=== PATIENT | female | born 1950 | race Caucasian/White ===

== ENCOUNTER → 2016-05-12 | Outpatient (RCR) | payer MEDICARE, OTHER ==
--- OUTSIDE RECORDS SUMMARY | 2016-02-12 08:56 | XMS REPORT | Continuity of Care Document ---
Author Author [facility]– [place][Note 2] Address Unknown Phone Unavailable Support Name Relationship Address Phone , [employer] [address] [address] [place] [address] [phone] Active Allergies and Adverse Reactions Allergen Noted Date Severity Reactions Comments Amoxicillin Trihydrate soreness of tongue AUGMENTIN Nitrofurantoin nausea MACRODANTIN Macrocrystal Potassium Clavulanate soreness of tongue AUGMENTIN Current Medications Prescription Sig. Disp. Refills Start End Date Status Date fluticasone (FLONASE) 50 spray 2 spray (100MCG) 3 3 02/18/20 Active MCG/ACT nasal spray by intranasal route 11 every day in each nostril metformin (GLUCOPHAGE) 1 po qd 90 1 05/05/20 Active 1000 MG tablet 10 fexofenadine (ELANA) take 1 tablet (180MG) by 90 1 05/05/20 Active 180 MG tablet oral route every day 10 triamterene-hydrochloroth One po daily 90 1 11/15/19 Active iazide (MAXZIDE) 75-50 MG 11 sitagliptan-metformin take 1 tablet by oral 60 6 02/27/20 Active (JANUMET) 50-1000 MG per route 2 times every day 11 tablet with meals .Temporary Order (SEE SIG ALBUTEROL: 2 puffs tid 1 5 12/27/19 Active FOR MEDICATION NAME) until improved and q 2 11 hrs prn sob cyclobenzaprine 1 po q 8 hrs prn pain 40 0 10/31/19 Active (FLEXERIL) 10 MG tablet 11 omeprazole (PRILOSEC) 20 take 1 by oral route 2 180 1 05/05/20 Active MG capsule times every day 10 glucose blood (ONE TOUCH Use ac and hs to check 100 2 12/10/19 Active ULTRA TEST) test strip capillary glucose 10 ergocalciferol (DRISDOL) take 1 capsule 15 0 02/18/20 Active 32917 UNITS capsule (11631APPZH) by ORAL 11 route every week for 15 weeks .reconcile (MEDICATION No Sig 1 0 10/29/19 Active LIST IMPORTED) 13 simvastatin (ZOCOR) 40 MG Take 40 mg by mouth Active tablet nightly. clonazePAM (KLONOPIN) 0.5 Take 0.5 mg by mouth 2 Active MG tablet (two) times daily as needed for Anxiety. DULoxetine (CYMBALTA) 30 Take 60 mg by mouth 05/01/20 Active MG capsule daily. 11 Active Problems Problem Noted Date Other and unspecified hyperlipidemia Depressive disorder, not elsewhere classified Type II or unspecified type diabetes mellitus without mention of complication, not stated as uncontrolled Unspecified episodic mood disorder Unspecified essential hypertension Immunizations Name Dates Previously Given Next Due Influenza IIV3 PFree 02/17/2011, 03/12/2010, 03/06/2008, 03/07/2007, 03/11/2006, 03/18/2005 Social History Tobacco Use Types Packs/Day Years Used Date Never Smoker Last Filed Vital Signs Vital Sign Reading Time Taken Blood Pressure 130/74 03/17/2011 3:53 PM YOGA COORDINATOR Pulse - - Temperature - - Respiratory Rate - - Height 1.721 m (5' 7.75") 05/05/2010 9:16 AM YOGA COORDINATOR Weight 115.894 kg (255 lb 8 oz) 03/17/2011 3:53 PM YOGA COORDINATOR Body Mass Index 39.13 03/17/2011 3:53 PM YOGA COORDINATOR Oxygen Saturation - - Plan of Care Health Maintenance Due Date Last Done Comments Tdap Vaccines 07/28/1959 Tetanus Vaccine (Td 07/28/1959 Booster) Ophthalmology Exam 10/03/2007 10/02/2006 Zoster Vaccine 2008 Diabetic Foot Exam 04/04/2009 04/04/2008 Cervical Cancer Screening 05/05/2011 05/05/2010 Annual Wellness Visit 2013 Pneumo-Adult (1 of 2 - 2013 PCV13) Influenza Vaccine (#1) 2016 02/17/2011, 03/12/2010, 03/06/2008 Additional history exists Breast Cancer 11/28/2016 11/28/2014, 11/27/2013, 10/27/2012 Additional history exists Screening-Mammogram Colon Cancer 10/11/2018 10/11/2008 Screening-Colonoscopy Hepatitis C Screening Completed 01/18/2009 Results from Last 3 Months Not on file
== END | disposition home or self-care (01) ==
DX: M24.521 Contracture, right elbow (principal); S42.491D Other displaced fracture of lower end of right humerus, subsequent encounter for fracture with routine healing

== ENCOUNTER 2016-06-04 13:05 | Outpatient (RCR) | payer MEDICARE, OTHER ==
--- OUTSIDE RECORDS SUMMARY | 2016-05-14 13:53 | XMS REPORT | Continuity of Care Document ---
Author Author [facility] Organization [facility] Address Unknown Phone Unavailable Care Team Providers Care Bowling Ball Assembler Name Role Phone PRISCA WINTER MD PCP Insurance Providers Payer Name Policy Number Subscriber Name Relationship [employer] [id number] Timmy Santana 18 Self / Same As Patient Enter Insurance Name [id number] Timmy Santana Facundo 18 Self / Same As Patient Problems No problem information available. Medications No medication information available. Social History Social History Problem Response Recorded Date/Time Recent Foreign Travel No 09/05/2015 9:16am Hospital Discharge Instructions No hospital discharge instructions. Plan of Care Prescriptions See Medication Section Functional Status No functional status results. Allergies, Adverse Reactions, Alerts No allergy information available. Immunizations No immunization records. Vital Signs No known vital signs results. Results No known relevant diagnostic tests, laboratory data and/or discharge summary. Procedures No known history of procedures. Encounters Encounter Location Arrival/Admit Date Discharge/Depart Date Attending Provider Discharged Recurring [facility] 09/25/15 10:43am 11:34am PRISCA WINTER MD Registered Clinic [facility] 09/05/15 2:25pm PRISCA WINTER MD
== END 2016-07-01 12:01 | disposition home or self-care (01) ==
PROVIDERS: ATTEND Physician Assistant
DX: M24.521 Contracture, right elbow (principal); S42.491D Other displaced fracture of lower end of right humerus, subsequent encounter for fracture with routine healing

== ENCOUNTER → 2016-06-10 | Outpatient (CLI) | payer MEDICARE, OTHER ==
--- OUTSIDE RECORDS SUMMARY | 2016-06-10 10:00 | XMS REPORT | Continuity of Care Document ---
Author Author [facility] Organization [facility] Address Unknown Phone Unavailable Care Team Providers Care High Pressure Boiler Operator Name Role Phone PRISCA WINTER MD PCP Insurance Providers Payer Name Policy Number Subscriber Name Relationship [employer] [id number] Timmy Santana 18 Self / Same As Patient Enter Insurance Name [id number] Timmy Santana Facundo 16 Self / Same [...] Discharge/Depart Date Attending Provider Discharged Recurring [facility] 09/25/15 10:43am 11:34am PRISCA WINTER MD Registered Clinic [facility] 09/05/15 2:25pm PRISCA WINTER MD
== END ==
LOC: RT 09:57
PROVIDERS: ATTEND Family Medicine
DX: J45.30 Mild persistent asthma, uncomplicated (principal)
CPT/HCPCS: 94060; 94726; 94729

== ENCOUNTER → 2016-07-07 | Outpatient (CLI) | payer MEDICARE, OTHER ==
--- OUTSIDE RECORDS SUMMARY | 2016-07-07 11:02 | XMS REPORT | Continuity of Care Document ---
Author Author [facility] Organization [facility] Address Unknown Phone Unavailable Care Team Providers Care Trademark Paralegal Name Role Phone PRISCA WINTER MD PCP Insurance Providers Payer Name Policy Number Subscriber Name Relationship [employer] [id number] Timmy Santana 18 Self / Same As Patient Enter Insurance Name [id number] Timmy Santana Facundo 18 Self / Same [...] Discharge/Depart Date Attending Provider Discharged Recurring [facility] 09/25/15 10:43am 11:34am PRISCA WINTER MD Registered Clinic [facility] 09/05/15 2:25pm PRISCA WINTER MD
--- NOTE | 2016-07-14 19:59 | Diagnostic Imaging Report ---
Digital mammogram bilateral screening This study was compared the prior exams of 11/28/14 and 11/27/13. At this time, there are no current complaints. The current study was also evaluated with a Computer Aided Detection (CAD) system. FINDINGS: There is a mild amount of fibroglandular tissue present in both breasts, similar to the prior exam. No primary or secondary sign of malignancy is noted. IMPRESSION: There is no radiographic evidence for malignancy. ACR BI-RADS Category 1: Negative. Result letter will be mailed to the patient. Note: At least 10% of breast cancer is not imaged by mammography. Dictated by: Dictated on workstation # [id number]
== END ==
LOC: RAD 11:00
PROVIDERS: ATTEND Family Medicine
DX: Z12.31 Encounter for screening mammogram for malignant neoplasm of breast (principal)
CPT/HCPCS: 77067

== ENCOUNTER → 2016-07-09 | Outpatient (CLI) | payer MEDICARE, OTHER ==
--- OUTSIDE RECORDS SUMMARY | 2016-07-09 15:04 | XMS REPORT | Continuity of Care Document ---
Author Author [facility] Organization [facility] Address Unknown Phone Unavailable Care Team Providers Care Expeller Worker Name Role Phone PRISCA WINTER MD PCP Insurance Providers Payer Name Policy Number Subscriber Name Relationship [employer] [id number] Timym Santana 18 Self / Same As Patient Enter Insurance Name [id number] Timmy Santana Facundo 18 Self / Same [...] Discharge/Depart Date Attending Provider Discharged Recurring [facility] 09/25/15 10:43am 11:34am PRISCA WINTER MD Registered Clinic [facility] 09/05/15 2:25pm PRISCA WINTER MD
--- NOTE | 2016-07-09 19:31 | Diagnostic Imaging Report ---
PA and lateral chest at 327 hours. INDICATION: Followup exam. FINDINGS: Heart size is within normal limits and stable when compared to the CT chest exam of 09/05/15. The lungs are clear. There is no sign of failure, pneumonia or pleural effusion to suggest an acute abnormality. The mediastinum is not widened. The surgical clips about the proximal trachea seen on the previous study are again evident and no different. The osseous structures are intact. IMPRESSION: There is no evidence for an acute cardiopulmonary abnormality. Dictated by: Dictated on workstation # [id number]
== END ==
LOC: RAD 15:01
PROVIDERS: ATTEND Internal Medicine Critical Care Medicine
DX: J45.909 Unspecified asthma, uncomplicated (principal); D86.9 Sarcoidosis, unspecified
CPT/HCPCS: 71020

== ENCOUNTER → 2016-07-11 | Outpatient (CLI) | payer MEDICARE, OTHER ==
--- OUTSIDE RECORDS SUMMARY | 2016-07-11 15:35 | XMS REPORT | Continuity of Care Document ---
Author Author [facility] Organization [facility] Address Unknown Phone Unavailable Care Team Providers Care Air Route Traffic Controller Name Role Phone PRISCA WINTER MD PCP Insurance Providers Payer Name Policy Number Subscriber Name Relationship [employer] [id number] Timmy Santana 18 Self / Same As Patient Enter Insurance Name [id number] Timmy Santana Facundo 16 Self / Same [...] Discharge/Depart Date Attending Provider Discharged Recurring [facility] 09/25/15 10:43am 11:34am PRISCA WINTER MD Registered Clinic [facility] 09/05/15 2:25pm PRISCA WINTER MD
--- NOTE | 2016-07-11 17:24 | Diagnostic Imaging Report ---
EXAMINATION: Magnetic resonance imaging of the left knee without intravenous contrast DATE: 07/11/2016. COMPARISON: None. INDICATION: 65-year-old female, left knee pain. TECHNIQUE: Multiplanar, multisequence non contrast enhanced MR imaging was accomplished. FINDINGS: MENISCI: There is a small oblique tear involving the free edge of the body of the medial meniscus. There is mild blunting of the free edge of the body of lateral meniscus which also may relate to a small free edge tear. LIGAMENTS AND TENDONS: The posterior cruciate ligament appears diminutive in caliber but intact. The anterior cruciate ligament not entirely well seen and may be very small in caliber or torn potentially on a chronic basis. The medial collateral ligament is intact. The iliotibial band, mid third lateral capsular ligament, fibular collateral ligament, biceps femoris tendon and conjoined tendon are intact. The quadriceps tendon and patella ligament are intact. JOINT: There are broad areas of full-thickness and near full-thickness patellar and trochlear cartilage loss. There are broad areas of approximately 50% cartilage loss in the medial compartment. There is no large knee joint effusion. There is an ossified intra-articular body best demonstrated on axial T2 fat saturation sequence image #5 measuring 6 x 6 x 5 mm in size. BONE: There is prominent edema in the mid to posterior weightbearing portion of the medial femoral condyle without a clearly visualized fracture line. This is concerning for stress-related changes and could herald an impending fracture. There is edema-like signal in the medial tibial plateau which is less prominent. This potentially could be stress-related as well although may also potentially relate to degenerative-related marrow edema. These areas of edema are not directly adjacent to each other. The other consideration would include bone contusions if there has been a recent injury. BURSAE AND SOFT TISSUES: There is no sizable Quiñones's cyst. IMPRESSION: 1. Small oblique free edge tear of the body of the medial meniscus. 2. Blunting of the free edge of the body of the lateral meniscus which may also relate to a small free edge tear. 3. There is very prominent marrow edema in the mid to posterior aspect of the weightbearing portion of the medial femoral condyle without immediately subjacent edema in the medial tibial plateau. This is concerning for stress-related changes and could herald a pending fracture. Primary differential consideration would be a bone contusion. There is also edema in the anterior aspect of the medial tibial plateau which also could relate to bone contusion or potential stress-related marrow changes. 4. Diminutive caliber anterior cruciate ligament which may be just small in caliber versus torn on a chronic basis. Intact posterior cruciate ligament. Dictated by: Dictated on workstation # [id number]
== END ==
LOC: RAD 15:32
PROVIDERS: ATTEND Orthopaedic Surgery
DX: M94.262 Chondromalacia, left knee (principal)
CPT/HCPCS: 73721

== ENCOUNTER → 2016-11-04 | Outpatient (CLI) | payer MEDICARE, OTHER ==
--- NOTE | 2016-11-04 16:50 | Diagnostic Imaging Report ---
Renal ultrasound. INDICATION: Chronic renal disease. FINDINGS: The right kidney is 8.9 cm and the left kidney is 8.9 cm in length. There is no hydronephrosis or focal lesion. The urinary bladder is not seen because it is empty. IMPRESSION: [id number] renal atrophy. No hydronephrosis. Dictated by: Dictated on workstation # [id number]
== END ==
LOC: RAD 12:03
PROVIDERS: ATTEND Family Medicine
DX: N26.1 Atrophy of kidney (terminal) (principal); N18.3 Chronic kidney disease, stage 3 (moderate)
CPT/HCPCS: 76770

== ENCOUNTER 2016-11-05 13:00 | Outpatient (RCR) | payer MEDICARE, OTHER | END 2016-11-08 | disposition home or self-care (01) | LOC: PULM 13:00 | PROVIDERS: ATTEND Internal Medicine Critical Care Medicine | DX: D86.9 Sarcoidosis, unspecified (principal); J45.909 Unspecified asthma, uncomplicated | CPT/HCPCS: 99211 ==

== ENCOUNTER 2016-11-12 13:29 | Outpatient (RCR) | payer MEDICARE, OTHER ==
[2016-12-14] MEDS ORDERED: TRIA1CAP4 PO (10:15)
[2016-12-14] MEDS ORDERED: SITA1TAB6 PO (10:15)
[2016-12-14] MEDS ORDERED: SIMV10TA PO (10:15)
[2016-12-14] MEDS ORDERED: CHOL100045 PO (10:15)
[2016-12-14] MEDS ORDERED: SERT50TA2 PO (10:15)
[2016-12-14] MEDS ORDERED: BUDE10.2 IH (10:15)
[2016-12-14] MEDS ORDERED: FEXO180T84 PO (10:15)
[2016-12-14] MEDS ORDERED: METF1000 PO (10:15)
[2016-12-14] MEDS ORDERED: DULO60CA6 PO (10:15)
== END 2017-02-06 | disposition home or self-care (01) ==
LOC: PULM 13:29
PROVIDERS: ATTEND Internal Medicine Critical Care Medicine
DX: D86.9 Sarcoidosis, unspecified; J45.909 Unspecified asthma, uncomplicated

== ENCOUNTER 2016-12-14 05:40 | Outpatient (CLI) | payer MEDICARE, OTHER ==
[~2016-12-14] VITALS: Ht 172.7 cm; Wt 90.7 kg
[2016-12-14] MEDS ORDERED: BUDE10.2 IH (10:15)
[2016-12-14] MEDS ORDERED: DULO60CA6 PO (10:15)
[2016-12-14] MEDS ORDERED: CHOL100045 PO (10:15)
[2016-12-14] MEDS ORDERED: FEXO180T84 PO (10:15)
[2016-12-14] MEDS ORDERED: SERT50TA2 PO (10:15)
[2016-12-14] MEDS ORDERED: SITA1TAB6 PO (10:15)
[2016-12-14] MEDS ORDERED: SIMV10TA PO (10:15)
[2016-12-14] MEDS ORDERED: TRIA1CAP4 PO (10:15)
[2016-12-14] MEDS ORDERED: METF1000 PO (10:15)
== END 2016-12-14 10:27 ==
LOC: PREOP 05:40
PROVIDERS: ATTEND Surgery
DX: Z01.818 Encounter for other preprocedural examination (principal); K59.09 Other constipation; Z86.010 Personal history of colon polyps; N28.9 Disorder of kidney and ureter, unspecified

== ENCOUNTER → 2016-12-23 | Outpatient (CLI) | payer MEDICARE, OTHER ==
[~2016-12-23] MED LIST: BUDE10.2 IH; CHOL100045 PO; DULO60CA6 PO; FEXO180T84 PO; METF1000 PO; SERT50TA2 PO; SIMV10TA PO; SITA1TAB6 PO; TRIA1CAP4 PO
== END ==
LOC: PREOP 05:34
PROVIDERS: ATTEND Surgery
DX: Z01.818 Encounter for other preprocedural examination (principal); D64.9 Anemia, unspecified; K59.00 Constipation, unspecified; Z86.010 Personal history of colon polyps

== ENCOUNTER → 2016-12-29 | Day surgery (SDC) | payer MEDICARE, OTHER ==
[~2016-12-29] VITALS: Ht 172.7 cm; Wt 90.7 kg
[~2016-12-29] MED LIST changes: +LACTATED RINGERS 1,000 ML IV ONE; +LACTATED RINGERS 1,000 ML IV SCH; +MIDAZOLAM 2 MG/2 ML (VERSED) VIAL ONE; +PROPOFOL INJECTION 50 ML IV ONE; +ceFAZolin 2 GM/50 ML NS 50 ML IV ONE; +ceFAZolin 2 GM/50 ML NS 50 ML ONE
[2016-12-29 09:20] VITALS: BP 150/114
--- NOTE | 2016-12-29 10:58 | Progress Note-Post Operative ---
Post-Operative Progess Note Surgeon (s)/Pile Operator (s) Surgeon NEERU CABAN DO Pile Operator: na Pre-Operative Diagnosis constipation, family hx colon cancer, hx polyps Post-Operative Diagnosis normal colon Procedure & Operative Findings Date of Procedure 12/29/16 Procedure Performed/Findings colonoscopy Anesthesia Type per non profit job titles Estimated Blood Loss Estimated blood loss (mL): none Specimens/Packing Specimens Removed na NEERU CAABN DO Dec 29, 2016 10:58 am
--- NOTE | 2016-12-29 11:01 | Discharge Inst-Simple/Standard ---
Discharge Inst-Standard Patient Instructions/Follow Up Plan of Care/Instructions/FU: repeat colonoscopy 5 years, if any problems before that be re-evaluated. Activity as Tolerated: Yes Discharge Diet: Regular Diet (high fiber) NEERU CABAN DO Dec 29, 2016 11:01 am
[2016-12-29 11:15] VITALS: BP 142/70
[2016-12-29 11:45] VITALS: BP 150/80
[2016-12-29 11:55] VITALS: BP 150/80
--- OUTSIDE RECORDS SUMMARY | 2016-12-29 12:11 | XMS REPORT ---
Author Author YAIMA NEVILLE Organization [employer] Address Unknown Phone Unavailable Care Team Providers Care Service Representative Name Role Phone YAIMA NEVILLE CP Unavailable Allergies No Known Allergies Problems Problem Type Condition Code Onset Dates Condition Status Problem Unilateral femoral hernia, without obstruction or gangrene, not specified as recurrent K41.90 Active Problem Generalized anxiety disorder F41.1 Active Problem Left foot drop M21.372 Active Assessment Generalized anxiety disorder F41.1 Active Assessment Episode of recurrent major depressive disorder, unspecified depression episode severity F33.9 Active Problem Comminuted right humeral fracture S42.351A Active Problem 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 Problem Frequent falls R29.6 Active Problem Hyperlipidemia associated with type 2 diabetes mellitus E11.69 Active Problem Major depressive disorder, recurrent, in partial remission F33.41 Active Problem Type 2 diabetes mellitus with hyperglycemia E11.65 Active Problem Essential hypertension I10 Active Medications No Known Medications Procedures Procedure Coding System Code Date Psychotherapy, patient &/family, 30 minutes, established patient CPT-4 91016 August 28, 2015 [facility] VISIT MENTAL HEALTH ESTAB PT CPT-4 G0470 August 28, 2015 Results No Known Results Summary Purpose [employer] Submission
--- OUTSIDE RECORDS SUMMARY | 2016-12-29 12:11 | XMS REPORT ---
Author Author YAIMA NEVILLE Organization [employer] Address Unknown Phone Unavailable Care Team Providers Care Perinatal Instructor Name Role Phone YAIMA NEVILLE CP Unavailable Allergies No Known Allergies Problems Problem Type Condition Code Onset Dates Condition Status Assessment Major depressive disorder, recurrent, in partial remission F33.41 Active Problem Left foot drop M21.372 Active Problem Unilateral femoral hernia, without obstruction or gangrene, not specified as recurrent K41.90 Active Assessment Generalized anxiety disorder F41.1 Active Problem 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 Problem Type 2 diabetes mellitus with hyperglycemia E11.65 Active Problem Comminuted right humeral fracture S42.351A Active Problem Major depressive disorder, recurrent, in partial remission F33.41 Active Problem Generalized anxiety disorder F41.1 Active Problem Essential hypertension I10 Active Problem Hyperlipidemia associated with type 2 diabetes mellitus E11.69 Active Medications No Known Medications Procedures Procedure Coding System Code Date Psychotherapy, patient &/family, 45 minutes, established patient CPT-4 68500 August 21, 2015 [facility] VISIT MENTAL HEALTH ESTAB PT CPT-4 G0470 August 21, 2015 Results No Known Results Summary Purpose [employer] Submission
--- OUTSIDE RECORDS SUMMARY | 2016-12-29 12:11 | XMS REPORT ---
Author Author PRISCA WINTER Organization [facility] Address [address] [place] [address] Care Team Providers Care Still Operator Brandy Name Role Phone PRISCA WINTER Unavailable PROBLEMS Type Condition ICD9-CM Code RXF37-ES Code Onset Dates Condition Status SNOMED Code Problem Left foot drop M21.372 Active 0483929 Problem Major depressive disorder, recurrent, in partial remission F33.41 Active 131428094 Problem Generalized anxiety disorder F41.1 Active 382432277 Assessment Pre-op exam Z01.818 Jan, Active 711821387 Problem Unilateral femoral hernia, without obstruction or gangrene, not specified as recurrent K41.90 Active 76256832 Problem Frequent falls R29.6 Active 562436698 Problem Comminuted right humeral fracture S42.351A Active 42121288 Problem Essential hypertension I10 Active 77507103 Problem Hyperlipidemia associated with type 2 diabetes mellitus E11.69 Active 832912542360 Problem 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 484570714 Problem Type 2 diabetes mellitus with hyperglycemia E11.65 Active 81733234 ALLERGIES Unknown Allergies SOCIAL HISTORY No smoking Hx information available PLAN OF CARE VITAL SIGNS MEDICATIONS Medication Instructions Dosage Frequency Start Date End Date Duration Status Amoxicillin 500 MG Orally every 12 hrs 1 tablet 12h Jan, Jan, 03 days Active RESULTS No Results PROCEDURES No Known procedures IMMUNIZATIONS No Known Immunizations
--- OUTSIDE RECORDS SUMMARY | 2016-12-29 12:11 | XMS REPORT ---
Author Author PRISCA WINTER [facility] Address [address] [place] [address] Care Team Providers Care Manager Apple Name Role Phone PRISCA WINTER Unavailable PROBLEMS Type Condition ICD9-CM Code FRT12-RG Code Onset Dates Condition Status SNOMED Code Problem Left foot drop M21.372 Active 4732231 Problem Major depressive disorder, recurrent, in partial remission F33.41 Active 014795299 Problem Generalized anxiety disorder F41.1 Active 032768185 Problem Unilateral femoral hernia, without obstruction or gangrene, not specified as recurrent K41.90 Active 40968000 Problem Frequent falls R29.6 Active 081732155 Problem Comminuted right humeral fracture S42.351A Active 67715409 Problem Essential hypertension I10 Active 50459101 Problem Hyperlipidemia associated with type 2 diabetes mellitus E11.69 Active 370042756578 Problem 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 455794110 Problem Type 2 diabetes mellitus with hyperglycemia E11.65 Active 28369793 ALLERGIES Unknown Allergies SOCIAL HISTORY No smoking Hx information available PLAN OF CARE VITAL SIGNS MEDICATIONS Unknown Medications RESULTS No Results PROCEDURES No Known procedures IMMUNIZATIONS No Known Immunizations
--- OUTSIDE RECORDS SUMMARY | 2016-12-29 12:11 | XMS REPORT ---
Author Author BOWEN TOLEDO Organization [employer] Address Unknown Phone Unavailable Care Team Providers Care Quencher Operator Name Role Phone BOWEN TOLEDO CP Unavailable Allergies No Known Allergies Problems Problem Type Condition ICD-9 Code Onset Dates Condition Status Problem Insomnia 780.52 Active Problem Hyperlipidemia, mixed 272.2 Active Problem Depression with anxiety 300.4 Active Problem Cystocele w/o mention of uterine prolapse 618.00 Active Problem Chest pressure 786.59 Active Problem CONSTIPATION NOS 564.00 Active Problem HTN [Hypertension] 401.9 Active Problem Diabetes Mellitus type 2, controlled 250.00 Active Problem Cough 786.2 Active Problem Tachycardia 785.0 Active Medications Medication Code System Code Instructions Start Date End Date Status Dosage Vitamin D [facility] 6150 50,000 intl units orally once weekly November 12, 2014 1 cap(s) Results No Known Results Summary Purpose [employer] Submission
--- OUTSIDE RECORDS SUMMARY | 2016-12-29 12:11 | XMS REPORT ---
Author Author PRISCA WINTER [facility] Address [address] [place] [address] Care Team Providers Care Children'S Counselor Name Role Phone PRISCA WINTER Unavailable PROBLEMS Type Condition ICD9-CM Code KFN71-UZ Code Onset Dates Condition Status SNOMED Code Problem Left foot drop M21.372 Active 6830727 Problem Major depressive disorder, recurrent, in partial remission F33.41 Active 202700126 Problem Generalized anxiety disorder F41.1 Active 554232279 Problem Unilateral femoral hernia, without obstruction or gangrene, not specified as recurrent K41.90 Active 42496370 Problem Frequent falls R29.6 Active 045547993 Problem Comminuted right humeral fracture S42.351A Active 79107025 Problem Essential hypertension I10 Active 04272147 Problem Hyperlipidemia associated with type 2 diabetes mellitus E11.69 Active 020029566879 Problem 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 221570438 Problem Type 2 diabetes mellitus with hyperglycemia E11.65 Active 29854814 ALLERGIES Unknown Allergies SOCIAL HISTORY No smoking Hx information available PLAN OF CARE VITAL SIGNS MEDICATIONS Unknown Medications RESULTS No Results PROCEDURES No Known procedures IMMUNIZATIONS No Known Immunizations
--- OUTSIDE RECORDS SUMMARY | 2016-12-29 12:11 | XMS REPORT ---
Author Author PRISCA WINTER Organization [facility] Address [address] [place] [address] Care Team Providers Care Spectroscopist Name Role Phone PRISCA WINTER Unavailable PROBLEMS Type Condition ICD9-CM Code [id number] Code Onset Dates Condition Status SNOMED Code Problem Comminuted right humeral fracture S42.351A Active 42557742 Problem Gastroesophageal reflux disease without esophagitis K21.9 Active 425678807 Problem Frequent falls R29.6 Active 746663379 Problem Stage 3 chronic kidney disease N18.3 Active 547735729 Problem Stress incontinence N39.3 Active 60801923 Problem Vitamin D deficiency E55.9 Active 03593934 Problem Mild persistent asthma without complication J45.30 Active 624905700 Problem Urge incontinence N39.41 Active 88027554 Problem History of sarcoidosis Z86.2 Active 056804908 Problem Unilateral femoral hernia, without obstruction or gangrene, not specified as recurrent K41.90 Active 78075586 Problem Left foot drop M21.372 Active 8546675 Problem Hyperlipidemia associated with type 2 diabetes mellitus E11.69 Active 984491727939 Problem Essential hypertension I10 Active 70793272 Problem Generalized anxiety disorder F41.1 Active 784854650 Problem Type 2 diabetes mellitus with hyperglycemia E11.65 Active 78706729 Problem Major depressive disorder, recurrent, in partial remission F33.41 Active 184694614 Problem 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 383470813 ALLERGIES Substance Reaction Event Type Date Status N.K.D.A. Unknown Non Drug Allergy Apr, Unknown SOCIAL HISTORY No smoking Hx information available PLAN OF CARE Activity Details Follow Up 4 Weeks Reason:Chronic cough VITAL SIGNS Height 5'8" in 2016-04-23 Weight 218.1 lbs 2016-04-23 Temperature 98.4 degrees Fahrenheit 2016-04-23 Heart Rate 82 bpm 2016-04-23 Respiratory Rate 18 2016-04-23 Oximetry 98 % 2016-04-23 BMI 33.16 kg/m2 2016-04-23 Blood pressure systolic 124 mmHg 2016-04-23 Blood pressure diastolic 82 mmHg 2016-04-23 MEDICATIONS Medication Instructions Dosage Frequency Start Date End Date Duration Status Cholecalciferol 41855 UNIT Orally once weekly 1 capsule Apr, Apr, 12 Weeks Active Advair Diskus 100-50 MCG/DOSE Inhalation Twice a day prn 1 puff Active Cymbalta 60 MG Orally Once a day 1 capsule 24h 90 days Active Jasmin Allergy 180 MG Orally Once a day 1 tablet as needed 24h 30 days Active MiraLax 17 gm/dose Orally Once a day 17 grams mixed in 8 oz of water or juice 24h Active Janumet 50-1000 MG Orally Once a day 1 tablet with meals 24h 90 days Active Zoloft 50 MG Orally Once a day 1 tablet 24h 90 days Active Triamterene-HCTZ 37.5-25 MG Orally Once a day 1 tablet in the morning 24h 90 days Active Metformin HCl 1000 MG Orally Once a day in the morning 1 tablet with meals Dec, 90 days Active Zocor 10 MG Orally Once a day 1 tablet in the evening 24h Active Prilosec OTC 20 mg Orally Once a day 1 tablet 24h Mar, 30 day(s ) Active RESULTS Name Result Date Reference Range A1C (IN HOUSE) 2016-04-23 A1C IN HOUSE 7.8 4.3 - 5.6 % Previous A1c 7.9 Lot [id number] Exp date PROCEDURES Procedure Date Ordered Related Diagnosis Body Site MEASURE BLOOD OXYGEN LEVEL Apr 23, 2016 GLYCATED HEMOGLOBIN TEST Apr 23, 2016 Office Visit, Est Pt., Level 3 Apr 23, 2016 [facility] VISIT ESTABLISHED PATIENT Apr 23, 2016 IMMUNIZATIONS No Known Immunizations
--- OUTSIDE RECORDS SUMMARY | 2016-12-29 12:12 | XMS REPORT ---
Author Author PRISCA WINTER Organization [facility] Address [address] [place] [address] Care Team Providers Care Marketing Clerk Name Role Phone PRISCA WINTER Unavailable PROBLEMS Type Condition ICD9-CM Code [id number] Code Onset Dates Condition Status SNOMED Code Problem Left foot drop M21.372 Active 8336688 Problem Major depressive disorder, recurrent, in partial remission F33.41 Active 281020316 Problem Generalized anxiety disorder F41.1 Active 127100231 Assessment Frequency of micturition R35.0 13 Jan, 2016 Active 054179101 Problem Unilateral femoral hernia, without obstruction or gangrene, not specified as recurrent K41.90 Active 44449154 Problem Frequent falls R29.6 Active 620321738 Problem Comminuted right humeral fracture S42.351A Active 15901447 Problem Essential hypertension I10 Active 00553079 Problem Hyperlipidemia associated with type 2 diabetes mellitus E11.69 Active 227927491518 Problem 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 310353801 Problem Type 2 diabetes mellitus with hyperglycemia E11.65 Active 80910076 ALLERGIES Unknown Allergies SOCIAL HISTORY No smoking Hx information available PLAN OF CARE VITAL SIGNS MEDICATIONS Unknown Medications RESULTS No Results PROCEDURES No Known procedures IMMUNIZATIONS No Known Immunizations
--- OUTSIDE RECORDS SUMMARY | 2016-12-29 12:12 | XMS REPORT ---
Author Author PRISCA WINTER eClinicalWorks Address Unknown Phone Unavailable Care Team Providers Care Gas Welder Apprentice Name Role Phone PRISCA WINTER Unavailable Allergies No Known Allergies Problems Problem Type Condition Code Onset Dates Condition Status Assessment Type 2 diabetes mellitus with hyperglycemia E11.65 Active Problem Left foot drop M21.372 Active Problem Unilateral femoral hernia, without obstruction or gangrene, not specified as recurrent K41.90 Active Problem 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 Problem Type 2 diabetes mellitus with hyperglycemia E11.65 Active Problem Comminuted right humeral fracture S42.351A Active Problem Major depressive disorder, recurrent, in partial remission F33.41 Active Problem Generalized anxiety disorder F41.1 Active Problem Essential hypertension I10 Active Problem Hyperlipidemia associated with type 2 diabetes mellitus E11.69 Active Medications Medication Code System Code Instructions Start Date End Date Status Dosage Lisinopril [facility] [place] [address]-83 10 mg Orally Once a day August 26, 2015 1 tablet Results No Known Results Summary Purpose eClinicalWorks Submission
--- OUTSIDE RECORDS SUMMARY | 2016-12-29 12:12 | XMS REPORT ---
Author Author BOWEN TOLEDO Organization [employer] Address Unknown Phone Unavailable Care Team Providers Care Drill Bit Sharpener Name Role Phone BOWEN TOLEDO CP Unavailable Allergies No Known Allergies Problems Problem Type Condition ICD-9 Code Onset Dates Condition Status Problem Insomnia 780.52 Active Assessment Chest pressure 786.59 Active Problem Cough 786.2 Active Problem Tachycardia 785.0 Active Problem Chest pressure 786.59 Active Problem Hyperlipidemia, mixed 272.2 Active Problem Depression with anxiety 300.4 Active Problem HTN [Hypertension] 401.9 Active Problem Diabetes Mellitus type 2, controlled 250.00 Active Medications Medication Code System Code Instructions Start Date End Date Status Dosage Zocor NDC 1546 40mg orally once daily at July 14, 2014 1 tab(s) Results No Known Results Summary Purpose eClinicalWorks Submission
--- OUTSIDE RECORDS SUMMARY | 2016-12-29 12:12 | XMS REPORT ---
Author Author PRISCA WINTER eClinical[employer] Address Unknown Phone Unavailable Care Team Providers Care Application Tester Name Role Phone PRISCA WINTER CP Unavailable Allergies No Known Allergies Problems Problem Type Condition Code Onset Dates Condition Status Problem Unilateral femoral hernia, without obstruction or gangrene, not specified as recurrent K41.90 Active Problem Generalized anxiety disorder F41.1 Active Problem Left foot drop M21.372 Active Problem Comminuted right humeral fracture S42.351A Active Problem 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 Problem Frequent falls R29.6 Active Problem Hyperlipidemia associated with type 2 diabetes mellitus E11.69 Active Problem Major depressive disorder, recurrent, in partial remission F33.41 Active Problem Type 2 diabetes mellitus with hyperglycemia E11.65 Active Problem Essential hypertension I10 Active Medications Medication Code System Code Instructions Start Date End Date Status Dosage Tramadol HCl [facility] [address]-11 50 mg Orally every 6 hrs August 30, 2015 1 tablet as needed Results No Known Results Summary Purpose eClinicalWorks Submission
--- OUTSIDE RECORDS SUMMARY | 2016-12-29 12:12 | XMS REPORT ---
Author Author PRISCA WINTER eClinical[employer] Address Unknown Phone Unavailable Care Team Providers Care Program Paraprofessional Name Role Phone PRISCA WINTER CP Unavailable Allergies, Adverse Reactions, Alerts Substance Reaction Event Type N.K.D.A. Info Not Available Non Drug Allergy Problems Problem Type Condition Code Onset Dates Condition Status Assessment Comminuted right humeral fracture S42.351A Active Problem Unilateral femoral hernia, without obstruction or gangrene, not specified as recurrent K41.90 Active Assessment Type 2 diabetes mellitus with hyperglycemia E11.65 Active Assessment Fatigue, unspecified type R53.83 Active Problem Type 2 diabetes mellitus with hyperglycemia E11.65 Active Problem Essential hypertension I10 Active Problem 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 Problem Generalized anxiety disorder F41.1 Active Problem Left foot drop M21.372 Active Problem Hyperlipidemia associated with type 2 diabetes mellitus E11.69 Active Problem Major depressive disorder, recurrent, in partial remission F33.41 Active Medications Medication Code System Code Instructions Start Date End Date Status Dosage Percocet [facility] [place] [address]-58 7.5-325 MG Orally every 4 hrs Apr 09, 2015 1-2 tablet as needed MiraLax [facility] [place] [address]-94 17 gm/dose Orally Once a day 17 grams mixed in 8 oz of water or juice Zoloft [facility] [place] [address]-17 50 MG Orally Once a day 1 tablet Janumet [facility] [place] [address]-07 50-1000 MG Orally Twice a day 1 tablet with meals Albuterol Sulfate [facility] [place] [address]-78 (2.5 MG/3ML) 0.083% Inhalation every 4 hrs as needed for wheezing/cough 3 ml Jasmin Allergy [facility] [place] [address] 180 MG Orally Once a day as needed 1 tablet Cymbalta [facility] [place] [address]-67 60 MG Orally Once a day 1 capsule Vitamin D (Ergocalciferol) [facility] [place] [address]-50 76[address] UNIT Orally once a week 1 capsule Zocor [facility] [place] [address]-65 10 MG Orally Once a day 1 tablet in the evening Advair Diskus [facility] [place] [address]-84 100-50 MCG/DOSE Inhalation Twice a day prn 1 puff Triamterene-HCTZ [facility] [place] [address]-88 37.5-25 MG Orally Once a day 1 tablet in the morning Procedures Procedure Coding System Code Date LAB NOT BILLED BY [facility] CPT-4 NOBLL May 16, 2015 [facility] VISIT ESTABLISHED PATIENT CPT-4 G0467 May 16, 2015 GLYCATED HEMOGLOBIN TEST CPT-4 60402 May 16, 2015 VENIPUNCT, ROUTINE* CPT-4 78678 May 16, 2015 Office Visit, Est Pt., Level 3 CPT-4 78539 May 16, 2015 Vital Signs Date/Time: May 16, 2015 Temperature 98.6 F Weight 220.5 lbs Height 5'8" in BMI 33.52 Index Blood Pressure Diastolic 78 mmHg Blood Pressure Systolic 126 mmHg Cardiac Monitoring Heart Rate 92 bpm Results Name Result Date Reference Range Unit Abnormality Flag A1C (IN HOUSE) ----A1C IN HOUSE 6.2 20150516 4.30 - 5.6 % ----Previous A1c 7.1 [id number] ----Lot # [id number] ----Exp date [id number] ROUTINE VENIPUNCTURE Summary Purpose eClinicalWorks Submission
--- OUTSIDE RECORDS SUMMARY | 2016-12-29 12:12 | XMS REPORT ---
Author Author PRISCA WINTER eClinicalWorks Address Unknown Phone Unavailable Care Team Providers Care Credit Collections Specialist Name Role Phone PRISCA WINTER CP Unavailable [...] E11.65 Active Problem Essential hypertension I10 Active Assessment Wheezing R06.2 Active Assessment Community acquired pneumonia J18.9 Active Assessment Encounter for immunization Z23 Active Assessment Cough R05 Active Medications Medication Code System Code Instructions Start Date End Date Status Dosage PredniSONE [facility] [address]-26 20 mg Orally 2 times a day Mar 11, 2016 Mar 16, 2016 1 tablet Jasmin Allergy [facility] [address] 180 MG Orally Once a day as needed 1 tablet Aldara [facility] [address]-44 5 % Externally Two times a Week at bedtime Dec 1 application to affected area at bedtime Metformin HCl [facility] [address]-42 1000 MG Orally Once a day in the morning Dec 24, 2015 1 tablet with meals Azithromycin [facility] [address]-18 250 MG Orally Once a day Mar 11, 2016 Mar 16, 2016 2 tablets on the first day, then 1 tablet daily for 4 days Advair Diskus [facility] [address]-38 100-50 MCG/DOSE Inhalation Twice a day prn 1 puff Zocor [facility] [address]-12 10 MG Orally Once a day 1 tablet in the evening Triamterene-HCTZ [facility] [address]-34 37.5-25 MG Orally Once a day 1 tablet in the morning ibuprofen [facility] [address]-45 200 mg oral 2 times a day 2 tablet Fluorouracil [facility] [address]-22 0.5 % Externally Once a day up to 4 weeks ( can stop when superficial erosion occurs) September 11, 2015 1 application to affected area Acetaminophen [facility] [address]-48 500 MG Orally 3 times a day August 08, 2015 2 tablets Janumet [facility] [address]-14 50-1000 MG Orally Once a day 1 tablet with meals Zoloft [facility] [address]-03 50 MG Orally Once a day 1 tablet Albuterol Sulfate [facility] [address]-26 (2.5 MG/3ML) 0.083% Inhalation every 4 hrs as needed for wheezing/cough 3 ml MiraLax [facility] [address]-52 17 gm/dose Orally Once a day 17 grams mixed in 8 oz of water or juice Cymbalta [facility] [address]-53 60 MG Orally Once a day 1 capsule Procedures Procedure Coding System Code Date [facility] VISIT ESTABLISHED PATIENT CPT-4 G0467 Mar 11, 2016 Office Visit, Est Pt., Level 3 CPT-4 09771 Mar 11, 2016 CHEST X-RAY CPT-4 57227 Mar 11, 2016 SINGLE IMMUNIZATION ADMIN CPT-4 33307 Mar 11, 2016 FLUARIX QUAD P-FREE 3 AND UP .50 2015 CPT-4 57162 Mar 11, 2016 Vital Signs Date/Time: Mar 11, 2016 Cardiac Monitoring Heart Rate 80 bpm Weight 220.5 lbs Height 5'8" in BMI 33.52 Index Blood Pressure Diastolic 78 mmHg Blood Pressure Systolic 136 mmHg Results No Known Results Immunizations Vaccine Administration Date FLUARIX QUAD P-FREE 3 AND UP .50 2015Mar 11, 2016 Summary Purpose eClinicalWorks Submission
--- OUTSIDE RECORDS SUMMARY | 2016-12-29 12:12 | XMS REPORT ---
Author Author MOY PRISCA Organization [facility] Address [address] [place] [address] Care Team Providers Care Triage Register Nurse Name Role Phone PRISCA WINTER Unavailable PROBLEMS Type Condition ICD9-CM Code [id number] Code Onset Dates Condition Status SNOMED Code Problem Comminuted right humeral fracture S42.351A Active 12483465 Problem Gastroesophageal reflux disease without esophagitis K21.9 Active 086108415 Problem Frequent falls R29.6 Active 007925184 Problem Stage 3 chronic kidney disease N18.3 Active 387003205 Problem Stress incontinence N39.3 Active 47741003 Problem Vitamin D deficiency E55.9 Active 97126378 Problem Mild persistent asthma without complication J45.30 Active 139439233 Problem Urge incontinence N39.41 Active 19862908 Problem History of sarcoidosis Z86.2 Active 978824373 Problem Unilateral femoral hernia, without obstruction or gangrene, not specified as recurrent K41.90 Active 16421201 Problem Left foot drop M21.372 Active 9278404 Problem Hyperlipidemia associated with type 2 diabetes mellitus E11.69 Active 983850548267 Problem Essential hypertension I10 Active 27978434 Problem Generalized anxiety disorder F41.1 Active 453933529 Problem Type 2 diabetes mellitus with hyperglycemia E11.65 Active 37312216 Problem Major depressive disorder, recurrent, in partial remission F33.41 Active 988085283 Problem 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 106116640 ALLERGIES Unknown Allergies SOCIAL HISTORY No smoking Hx information available PLAN OF CARE VITAL SIGNS MEDICATIONS Unknown Medications RESULTS No Results PROCEDURES Procedure Date Ordered Related Diagnosis Body Site PULMONARY FUNCTION TEST (IN-HOUSE) 2016-05-05 Moderate restrictive defect with no improvement with albuterol SPRIOMETRY CHALLENGE May 05, 2016 NEB/MDI DEMO May 05, 2016 RESPIRATORY FLOW VOLUME LOOP May 05, 2016 SPIROMETRY May 05, 2016 IMMUNIZATIONS No Known Immunizations
--- OUTSIDE RECORDS SUMMARY | 2016-12-29 12:12 | XMS REPORT ---
Author Author YAIMA NEVILLE Organization e[employer] Address Unknown Phone Unavailable Care Team Providers Care Chief Station Engineer Name Role Phone YAIMA NEVILLE CP Unavailable Allergies No Known Allergies Problems Problem Type Condition Code Onset Dates Condition Status Problem Unilateral femoral hernia, without obstruction or gangrene, not specified as recurrent K41.90 Active Problem Generalized anxiety disorder F41.1 Active Problem Left foot drop M21.372 Active Assessment Generalized anxiety disorder F41.1 Active Assessment Major depressive disorder, recurrent episode, mild F33.0 Active Problem Comminuted right humeral fracture S42.351A [...] patient &/family, 30 minutes, established patient CPT-4 62006 November 18, 2015 [facility] VISIT MENTAL HEALTH ESTAB PT CPT-4 G0470 November 18, 2015 Results No Known Results Summary Purpose eClinicalWorks Submission
--- OUTSIDE RECORDS SUMMARY | 2016-12-29 12:12 | XMS REPORT ---
Author Author PRISCA WINTER eClinicalWorks Address Unknown Phone Unavailable Care Team Providers Care Food Product Inspector Name Role Phone PRISCA WINTER Unavailable Allergies [...] Instructions Start Date End Date Status Dosage [facility] [address]-68 2.5-1000 MG Orally Twice a day Jun 11, 2015 1 tablet with meals Results No Known Results Summary Purpose eClinicalWorks Submission
--- OUTSIDE RECORDS SUMMARY | 2016-12-29 12:12 | XMS REPORT ---
Author Author MOY PRISCA Organization [facility] Address [address] [place] [address] Care Team Providers Care Larder Cook Name Role Phone MOYROPRISCA Unavailable PROBLEMS Type Condition ICD9-CM Code [id number] Code Onset Dates Condition Status SNOMED Code Problem Left foot drop M21.372 Active 4267095 Problem Major depressive disorder, recurrent, in partial remission F33.41 Active 399838004 Problem Generalized anxiety disorder F41.1 Active 436977211 Assessment Frequency of micturition R35.0 Jan, Active 987953330 Problem Unilateral femoral hernia, without obstruction or gangrene, not specified as recurrent K41.90 Active 88867568 Problem Frequent falls R29.6 Active 525506752 Problem Comminuted right humeral fracture S42.351A Active 14991740 Problem Essential hypertension I10 Active 88402035 Problem Hyperlipidemia associated with type 2 diabetes mellitus E11.69 Active 708540849043 Problem 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 371607988 Problem Type 2 diabetes mellitus with hyperglycemia E11.65 Active 63838997 ALLERGIES Unknown Allergies SOCIAL HISTORY No smoking Hx information available PLAN OF CARE VITAL SIGNS MEDICATIONS Unknown Medications RESULTS Name Result Date Reference Range UA LONG DIP (IN HOUSE) 2016-01-23 Lot # [id number] Exp date Jan 2017 Clarity clear Color yellow Odor no GLU Negative JAYLYN Negative KET Negative SG 1.020 BLO Negative pH 6.0 Protein Negative URO 0.2 NIT Negative SARIAH TRACE Lot # [id number] Exp date Jan 2016 CULTURE, URINE 2016-01-23 Urine Culture, Routine Final report Result 1 Escherichia coli Antimicrobial Susceptibility PROCEDURES Procedure Date Ordered Related Diagnosis Body Site URINALYSIS, AUTO, W/O SCOPE Jan 23, 2016 LAB NOT BILLED BY [facility] Jan 23, 2016 IMMUNIZATIONS No Known Immunizations
--- OUTSIDE RECORDS SUMMARY | 2016-12-29 12:13 | XMS REPORT ---
Author Author BOWEN TOLEDO [facility] eClinicalWorks Address Unknown Phone Unavailable Care Team Providers Care Lead Rider Name Role Phone BOWEN TOLEDO Unavailable Allergies, Adverse Reactions, Alerts Substance Reaction Event Type N.K.D.A. Info Not Available Non Drug Allergy Problems Problem Type Condition Code Onset Dates Condition Status Problem Insomnia 780.52 Active Problem Hyperlipidemia, mixed 272.2 Active Problem Depression with anxiety 300.4 Active Problem Cystocele w/o mention of uterine prolapse 618.00 Active Problem Chest pressure 786.59 Active Problem CONSTIPATION NOS 564.00 Active Problem HTN [Hypertension] 401.9 Active Problem Diabetes Mellitus type 2, controlled 250.00 Active Problem Cough 786.2 Active Problem Tachycardia 785.0 Active Assessment Cystocele w/o mention of uterine prolapse 618.00 Active Assessment Depression with anxiety 300.4 Active Assessment Hyperlipidemia, mixed 272.2 Active Assessment CONSTIPATION NOS 564.00 Active Assessment Diabetes Mellitus type 2, controlled 250.00 Active Assessment Insomnia 780.52 Active Assessment HTN [Hypertension] 401.9 Active Medications Medication Code System Code Instructions Start Date End Date Status Dosage mayumet NDC 533089 9560/50mg orally 2 times a day 1 tab(s) clonazepam NDC 67457 0.5 mg orally daily at bedtime May 01, 2014 1 tab(s) triamcinolone topical NDC 90509 0.1% applied topically as needed once a day Jun 05, 2014 1 moriah Advair Diskus NDC 16206 100 mcg-50 mcg inhaled 2 times a day Jun 05, 2014 1 puff(s) Jasmin NDC 0 180 mg as directed Cymbalta NDC 49330 60 mg orally once a day Jun 14, 2014 1 cap(s) Contour EZ Next test strips NDC 0 Test Strips fingerstick once a day one strip Tessalon Perles NDC 2377 100 mg orally as needed every 8h for cough May 1-2 cap(s) Albuterol inh NDC 0 CFC free 90 mcg/inh inhaled q4-6 hrs prn sob, wheezing 1-2 puffs diclofenac NDC 76664 sodium 75 mg orally 2 times a day 1 tab(s) One Touch Ultra Test Strips NDC 0 . fingerstick as needed once a day Dec as directed Zoloft NDC 1554 50 mg orally once a day August 22, 2014 1 tab(s) Vitamin D NDC 6150 50,000 intl units orally once weekly 1 cap(s) albuterol NDC 71059 2.5 mg/3 mL (0.083%) inhaled as needed every 4-6 hrs Jun 01, 2014 3 mL Maxzide NDC 1625 50 mg-75 mg orally once a day 1 tab(s) Zocor NDC 1546 40mg orally once daily at HS July 26, 2014 1 tab(s) MiraLax NDC 49046 - orally once a day 17 g Procedures Procedure Coding System Code Date Office Visit, [facility] pt, Level 4 CPT-4 33032 August 31, 2014 Vital Signs Date/Time: August 31, 2014 Pain Scale 0 0-10 Blood Pressure Diastolic 76 mm Hg Blood Pressure Systolic 128 mm Hg Results No Known Results Summary Purpose eClinicalWorks Submission
--- OUTSIDE RECORDS SUMMARY | 2016-12-29 12:13 | XMS REPORT ---
Author Author BOWEN TOLEDO Organization [employer] Address Unknown Phone Unavailable Care Team Providers Care Manager Oracle Database Name Role Phone BOWEN TOLEDO CP Unavailable [...] 786.2 Active Problem Tachycardia 785.0 Active Medications No Known Medications Results No Known Results Summary Purpose eClinicalWorks Submission
--- OUTSIDE RECORDS SUMMARY | 2016-12-29 12:13 | XMS REPORT ---
Author Author BOWEN TOLEDO Organization [employer] Address Unknown Phone Unavailable Care Team Providers Care Taximeter Repairer Name Role Phone BOWEN TOLEDO CP Unavailable [...] 786.2 Active Problem Tachycardia 785.0 Active Assessment LONG-TERM USE MEDS NEC V58.69 Active Assessment Vitamin deficiency 269.2 Active Assessment Insomnia 780.52 Active Medications No Known Medications Results No Known Results Summary Purpose eClinicalWorks Submission
--- OUTSIDE RECORDS SUMMARY | 2016-12-29 12:13 | XMS REPORT ---
Author Author BOWEN TOLEDO Organization [employer] Address Unknown Phone Unavailable Care Team Providers Care Gastroenterology Technician Name Role Phone BOWEN TOLEDO CP Unavailable [...]
--- OUTSIDE RECORDS SUMMARY | 2016-12-29 12:13 | XMS REPORT ---
Author Author PRISCA WINTER [employer] Address Unknown Phone Unavailable Care Team Providers Care Senior Visual Designer Name Role Phone PRISCA WINTER Unavailable Allergies [...] Instructions Start Date End Date Status Dosage Ciprofloxacin HCl [facility] [address]-77 500 MG Orally every 12 hours Feb 12, 2016 Feb 15, 2016 1 tablet Results No Known Results Summary Purpose eClinicalWorks Submission
--- OUTSIDE RECORDS SUMMARY | 2016-12-29 12:13 | XMS REPORT ---
Author Author PRISCA WINTER [employer] Address Unknown Phone Unavailable Care Team Providers Care Foster Winder Name Role Phone PRISCA WINTER CP Unavailable Allergies No Known Allergies Problems Problem Type Condition Code Onset Dates Condition Status Assessment 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 Problem Left foot drop M21.372 Active [...] Medications Procedures Procedure Coding System Code Date MICROALBUMIN, SEMIQUANT CPT-4 57226 August 21, 2015 VENIPUNCT, ROUTINE* CPT-4 30678 August 21, 2015 LAB NOT BILLED BY [facility] CPT-4 NOBLL August 21, 2015 Results Name Result Date Reference Range Unit Abnormality Flag MICROALBUMIN, URINE (IN HOUSE) ----Control Normal [id number] ----A:C (IN HOUSE) 30-300 [id number] ----CRE 50 [id number] ----ALB 80 [id number] ----Color Yellow [id number] ----Lot # [id number] ----MICROALBUMIN ABNORMAL [id number] ----Control Abnormal [id number] ----Lot # [id number] ----Exp date [id number] ----Exp date [id number] ----Clarity Clear [id number] ROUTINE VENIPUNCTURE Summary Purpose eClinicalWorks Submission
--- OUTSIDE RECORDS SUMMARY | 2016-12-29 12:13 | XMS REPORT ---
Author Author PRISCA WINTER [employer] Address Unknown Phone Unavailable Care Team Providers Care Rn Telephone Triage Name Role Phone PRISCA WINTER CP Unavailable [...] Active Problem Essential hypertension I10 Active Assessment Frequent falls R29.6 Active Assessment Acid reflux K21.9 Active Assessment Rib pain R07.81 Active Assessment Tinea corporis B35.4 Active Medications Medication Code System Code Instructions Start Date End Date Status Dosage Jasmin Allergy [facility] [address]153 180 MG Orally Once a day as needed 1 tablet Cymbalta [facility] [address]-81 60 MG Orally Once a day 1 capsule ibuprofen [facility] 0 200 mg oral 2 times a day 2 tablet Lisinopril [facility] [address]-70 10 mg Orally Once a day August 26, 2015 1 tablet Triamterene-HCTZ [facility] [address]-68 37.5-25 MG Orally Once a day 1 tablet in the morning Zoloft [facility] [address]-55 50 MG Orally Once a day 1 tablet Jentadueto [facility] [address]-94 2.5-1000 MG Orally Twice a day Jun 11, 2015 1 tablet with meals MiraLax [facility] [address]-93 17 gm/dose Orally Once a day 17 grams mixed in 8 oz of water or juice Tizanidine HCl [facility] [address]-34 2 MG Orally every 8 hrs August 27, 2015 1 tablet as needed Zocor [facility] [address]-32 10 MG Orally Once a day 1 tablet in the evening Acetaminophen [facility] [address]-62 500 MG Orally 3 times a day August 08, 2015 2 tablets Advair Diskus [facility] [address]-44 100-50 MCG/DOSE Inhalation Twice a day prn 1 puff Albuterol Sulfate [facility] [address]-02 (2.5 MG/3ML) 0.083% Inhalation every 4 hrs as needed for wheezing/cough 3 ml Vitamin D (Ergocalciferol) [facility] [address]-68 69482 UNIT Orally once a week 1 capsule Procedures Procedure Coding System Code Date [facility] VISIT ESTABLISHED PATIENT CPT-4 G0467 August 27, 2015 Office Visit, Est Pt., Level 3 CPT-4 29843 August 27, 2015 X-RAY EXAM OF RIBS CPT-4 84573 August 27, 2015 Vital Signs Date/Time: August 27, 2015 Temperature 98.0 F Weight 224.0 lbs Height 5'8" in BMI 34.06 Index Blood Pressure Diastolic 80 mmHg Blood Pressure Systolic 126 mmHg Cardiac Monitoring Heart Rate 76 bpm Results No Known Results Summary Purpose eClinicalWorks Submission
--- OUTSIDE RECORDS SUMMARY | 2016-12-29 12:13 | XMS REPORT ---
Author Author PRISCA WINTER [employer] Address Unknown Phone Unavailable Care Team Providers Care Transfer Driver Name Role Phone PRISCA WINTER CP Unavailable Allergies, Adverse Reactions, Alerts Substance Reaction Event Type N.K.D.A. Info Not Available Non Drug Allergy Problems Problem Type Condition ICD-9 Code Onset Dates Condition Status Assessment Diabetic peripheral neuropathy 250.60 Active Problem Diabetic peripheral neuropathy 250.60 Active Assessment Diabetes mellitus type II, uncontrolled 250.02 Active Problem Hyperlipidemia associated with type 2 diabetes mellitus 250.80 Active Problem Asthma 493.90 Active Problem Diabetes mellitus type II, uncontrolled 250.02 Active Problem Left foot drop 736.79 Active Problem Femoral hernia 553.00 Active Problem Major depressive disorder 296.20 Active Problem Generalized anxiety disorder 300.02 Active Medications Medication Code System Code Instructions Start Date End Date Status Dosage Cymbalta [facility] [address]-36 60 MG Orally Once a day 1 capsule Zoloft [facility] [address]-53 25 MG Orally Once a day 1 tablet MiraLax [facility] [address]-05 17 gm/dose Orally Once a day 17 grams mixed in 8 oz of water or juice Janumet [facility] [address]-66 50-1000 MG Orally Twice a day 1 tablet with meals Jasmin Allergy [facility] 586[address]896 180 MG Orally Once a day as needed 1 tablet Albuterol Sulfate [facility] [address]-21 (2.5 MG/3ML) 0.083% Inhalation every 4 hrs as needed for wheezing/cough 3 ml Vitamin D (Ergocalciferol) [facility] [address]-58 07393 UNIT Orally once a week 1 capsule Triamterene-HCTZ [facility] [address]-96 37.5-25 MG Orally Once a day 1 tablet in the morning Zocor [facility] [address]-58 10 MG Orally Once a day 1 tablet in the evening Advair Diskus [facility] [address]-77 100-50 MCG/DOSE Inhalation Twice a day prn 1 puff Procedures Procedure Coding System Code Date Office Visit, Est Pt., Level 3 CPT-4 62894 Jan 31, 2015 GLYCATED HEMOGLOBIN TEST CPT-4 33337 Jan 31, 2015 Vital Signs Date/Time: Jan 31, 2015 Temperature 98.2 F Weight 231.1 lbs Height 5'8" in BMI 35.13 Index Blood Pressure Diastolic 80 mmHg Blood Pressure Systolic 146 mmHg Cardiac Monitoring Heart Rate 82 bpm Results Name Result Date Reference Range Unit Abnormality Flag A1C (IN HOUSE) Summary Purpose eClinicalWorks Submission
--- OUTSIDE RECORDS SUMMARY | 2016-12-29 12:13 | XMS REPORT ---
Author Author PRISCA WINTER [facility] eClinicalWorks Address Unknown Phone Unavailable Care Team Providers Care Senior Materials Planner Name Role Phone PRISCA WINTER Unavailable Allergies No Known Allergies Problems Problem Type Condition ICD-9 Code Onset Dates Condition Status Problem DTAP TEST V06.1 Active Medications No Known Medications Results No Known Results Summary Purpose eClinicalWorks Submission
--- OUTSIDE RECORDS SUMMARY | 2016-12-29 12:13 | XMS REPORT ---
Author Author PRISCA WINTER [facility] eClinicalWorks Address Unknown Phone Unavailable Care Team Providers Care Traffic Routing Engineer Name Role Phone PRISCA WINTER Unavailable Allergies No Known Allergies Problems Problem Type Condition Code Onset Dates Condition Status Problem Unilateral femoral hernia, without obstruction or gangrene, not specified as recurrent K41.90 Active Problem Generalized anxiety disorder F41.1 Active Problem Left foot drop M21.372 Active Assessment Actinic keratosis L57.0 Active Problem Comminuted right humeral fracture S42.351A [...] Instructions Start Date End Date Status Dosage Kerry [facility] [address]-28 5 % Externally Two times a Week at bedtime Dec 1 application to affected area at bedtime Results No Known Results Summary Purpose eClinicalWorks Submission
--- OUTSIDE RECORDS SUMMARY | 2016-12-29 12:13 | XMS REPORT ---
Author Author MOY PRISCA Organization [facility] Address [address] [place] [address] Care Team Providers Care Tube Filler Name Role Phone MOYRO JOHNSONHANY Unavailable PROBLEMS Type Condition ICD9-CM Code LSY76-UG Code Onset Dates Condition Status SNOMED Code Problem Major depressive disorder, recurrent, in partial remission F33.41 Active 788591325 Problem Essential hypertension I10 Active 38036533 Problem Hyperlipidemia associated with type 2 diabetes mellitus E11.69 Active 285721545525 Assessment Type 2 diabetes mellitus with hyperglycemia E11.65 Mar, Active 72386265 Problem Unilateral femoral hernia, without obstruction or gangrene, not specified as recurrent K41.90 Active 00323959 Problem Left foot drop M21.372 Active 4923062 Problem Generalized anxiety disorder F41.1 Active 202049938 Problem Mild persistent asthma without complication J45.30 Active 237704911 Problem Gastroesophageal reflux disease without esophagitis K21.9 Active 394518687 Problem 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 455153981 Problem Type 2 diabetes mellitus with hyperglycemia E11.65 Active 80769977 Problem Frequent falls R29.6 Active 696727113 Problem Comminuted right humeral fracture S42.351A Active 94045880 ALLERGIES Unknown Allergies SOCIAL HISTORY No smoking Hx information available PLAN OF CARE VITAL SIGNS MEDICATIONS Medication Instructions Dosage Frequency Start Date End Date Duration Status Jasmin Allergy 180 MG Orally Once a day 1 tablet as needed 24h 30 days Active Prilosec OTC 20 mg Orally Once a day 1 tablet 24h Mar, 30 day(s ) Active RESULTS No Results PROCEDURES No Known procedures IMMUNIZATIONS No Known Immunizations
--- OUTSIDE RECORDS SUMMARY | 2016-12-29 12:14 | XMS REPORT ---
Author Author PRISCA WINTER [facility] eClinicalWorks Address Unknown Phone Unavailable Care Team Providers Care Activities Officer Name Role Phone PRISCA WINTER CP Unavailable [...] recurrent, in partial remission F33.41 Active Medications No Known Medications Results No Known Results Summary Purpose eClinicalWorks Submission
--- OUTSIDE RECORDS SUMMARY | 2016-12-29 12:14 | XMS REPORT ---
Author Author PRISCA WINTER [facility] eClinicalWorks Address Unknown Phone Unavailable Care Team Providers Care Oven Loader Name Role Phone PRISCA WINTER Unavailable Allergies No Known Allergies Problems Problem Type Condition Code Onset Dates Condition Status Problem Diabetic peripheral neuropathy 250.60 Active Assessment Influenza vaccine administered V04.81 Active Problem Hyperlipidemia associated with type 2 diabetes mellitus 250.80 Active Problem Asthma 493.90 Active Problem Diabetes mellitus type II, uncontrolled 250.02 Active Problem Left foot drop 736.79 Active Problem Femoral hernia 553.00 Active Problem Major depressive disorder 296.20 Active Problem Generalized anxiety disorder 300.02 Active Medications No Known Medications Procedures Procedure Coding System Code Date SINGLE IMMUNIZATION ADMIN CPT-4 68968 Feb 06, 2015 FLUZONE QUAD (3 & UP)-SINGLE DOSE VIAL-SANOFI PASTEUR-2014 CPT-4 21217 Feb 06, 2015 Results No Known Results Immunizations Vaccine Administration Date FLUZONE QUAD (3 & UP)-SINGLE DOSE VIAL-SANOFI PASTEUR-2014Feb 06, 2015 Summary Purpose eClinicalWorks Submission
--- OUTSIDE RECORDS SUMMARY | 2016-12-29 12:14 | XMS REPORT ---
Author Author PRISCA WINTER [facility] Address [address] [place] [address] Care Team Providers Care Paper Final Inspector Name Role Phone PRISCA WINTER Unavailable PROBLEMS Type Condition ICD9-CM Code CAG02-RY Code Onset Dates Condition Status SNOMED Code Problem Left foot drop M21.372 Active 2573115 Problem Major depressive disorder, recurrent, in partial remission F33.41 Active 730519421 Problem Generalized anxiety disorder F41.1 Active 007441097 Problem Unilateral femoral hernia, without obstruction or gangrene, not specified as recurrent K41.90 Active 07948062 Problem Frequent falls R29.6 Active 003006103 Problem Comminuted right humeral fracture S42.351A Active 12464421 Problem Essential hypertension I10 Active 32858536 Problem Hyperlipidemia associated with type 2 diabetes mellitus E11.69 Active 892290152594 Problem 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
--- OUTSIDE RECORDS SUMMARY | 2016-12-29 12:14 | XMS REPORT ---
Author Author PRISCA WINTER [facility] eClinicalWorks Address Unknown Phone Unavailable Care Team Providers Care Hospitality Team Member Name Role Phone PRISCA WINTER CP Unavailable [...]
--- OUTSIDE RECORDS SUMMARY | 2016-12-29 12:14 | XMS REPORT ---
Author Author PRISCA WINTER [facility] eClinicalWorks Address Unknown Phone Unavailable Care Team Providers Care Trestle Mechanic Name Role Phone PRISCA WINTER CP Unavailable [...]
--- OUTSIDE RECORDS SUMMARY | 2016-12-29 12:14 | XMS REPORT ---
Author Author PRISCA WINTER [employer] Address Unknown Phone Unavailable Care Team Providers Care Bowling Alley Refinisher Name Role Phone PRISCA WINTER CP Unavailable Allergies, Adverse Reactions, Alerts Substance Reaction Event Type N.K.D.A. Info Not Available Non Drug Allergy Problems Problem Type Condition Code Onset Dates Condition Status Problem Generalized anxiety disorder F41.1 Active Problem Hyperlipidemia associated with type 2 diabetes mellitus E11.69 Active Problem Major depressive disorder, recurrent, in partial remission F33.41 Active Problem Gastroesophageal reflux disease without esophagitis K21.9 Active Problem Frequent falls R29.6 Active Problem Mild persistent asthma without complication J45.30 Active Problem Type 2 diabetes mellitus with hyperglycemia E11.65 Active Problem Essential hypertension I10 Active Problem Comminuted right humeral fracture S42.351A Active Problem 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 Assessment Gastroesophageal reflux disease without esophagitis K21.9 Active Assessment Mild persistent asthma without complication J45.30 Active Problem Unilateral femoral hernia, without obstruction or gangrene, not specified as recurrent K41.90 Active Problem Left foot drop M21.372 Active Medications Medication Code System Code Instructions Start Date End Date Status Dosage Advair Diskus [facility] [address]-81 100-50 MCG/DOSE Inhalation Twice a day prn 1 puff Metformin HCl [facility] [address]-28 1000 MG Orally Once a day in the morning Dec 24, 2015 1 tablet with meals Zoloft [facility] [address]-28 50 MG Orally Once a day 1 tablet Janumet [facility] [address]-09 50-1000 MG Orally Once a day 1 tablet with meals Zocor [facility] [address]-66 10 MG Orally Once a day 1 tablet in the evening MiraLax [facility] [address]-78 17 gm/dose Orally Once a day 17 grams mixed in 8 oz of water or juice Jasmin Allergy [facility] [address]15 180 MG Orally Once a day as needed 1 tablet Prilosec OTC [facility] 129[address]25 20 mg Orally Once a day Mar 26, 2016 1 tablet Cymbalta [facility] [address]-22 60 MG Orally Once a day 1 capsule Triamterene-HCTZ [facility] [address]-37 37.5-25 MG Orally Once a day 1 tablet in the morning Procedures Procedure Coding System Code Date [facility] VISIT ESTABLISHED PATIENT CPT-4 G0467 Mar 26, 2016 Office Visit, Est Pt., Level 3 CPT-4 87898 Mar 26, 2016 MEASURE BLOOD OXYGEN LEVEL CPT-4 07472 Mar 26, 2016 Vital Signs Date/Time: Mar 26, 2016 Cardiac Monitoring Heart Rate 84 bpm Weight 218.9 lbs Height 5'8" in BMI 33.28 Index Oximetry 97 % Blood Pressure Diastolic 80 mmHg Blood Pressure Systolic 124 mmHg Results No Known Results Summary Purpose eClinicalWorks Submission
--- OUTSIDE RECORDS SUMMARY | 2016-12-29 12:14 | XMS REPORT ---
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
--- OUTSIDE RECORDS SUMMARY | 2016-12-29 12:14 | XMS REPORT ---
Author Author PRISCA WINTER [facility] eClinicalWorks Address Unknown Phone Unavailable Care Team Providers Care Grey Tender Name Role Phone PRISCA WINTER CP Unavailable Allergies No Known Allergies Problems Problem Type Condition Code Onset Dates Condition Status Problem Left foot drop M21.372 Active Problem [...] mellitus E11.69 Active Medications No Known Medications Results No Known Results Summary Purpose eClinicalWorks Submission
--- OUTSIDE RECORDS SUMMARY | 2016-12-29 12:14 | XMS REPORT ---
Author Author BOWEN TOLEDO [facility] eClinicalWorks Address Unknown Phone Unavailable Care Team Providers Care Top Hat Body Maker Name Role Phone BOWEN TOLEDO CP Unavailable Allergies, Adverse Reactions, Alerts Substance Reaction Event Type N.K.D.A. Info Not Available Non Drug Allergy Problems Problem Type Condition ICD-9 Code Onset Dates Condition Status Assessment Diabetes Mellitus type 2, controlled 250.00 Active Assessment Cough 786.2 Active Assessment HTN [Hypertension] 401.9 Active Problem Tachycardia 785.0 Active Problem HTN [Hypertension] 401.9 Active Problem Cough 786.2 Active Problem Depression with anxiety 300.4 Active Problem Insomnia 780.52 Active Problem Diabetes Mellitus type 2, controlled 250.00 Active Problem Hyperlipidemia, mixed 272.2 Active Assessment Syncope 780.2 Active Assessment Tachycardia 785.0 Active Assessment Depression with anxiety 300.4 Active Assessment ECZEMA (DERMATITIS) 692.9 Active Assessment Hyperlipidemia, mixed 272.2 Active Medications Medication Code System Code Instructions Start Date End Date Status Dosage Advair Diskus NDC 90763 100 mcg-50 mcg inhaled 2 times a day Jun 05, 2014 1 puff(s) Vitamin D NDC 6150 50,000 intl units orally once weekly 1 cap(s) Zoloft NDC 1554 50 mg orally once a day 1 tab(s) albuterol NDC 10334 2.5 mg/3 mL (0.083%) inhaled as needed every 4-6 hrs Jun 01, 2014 3 mL Jasmin NDC 0 180 mg as directed MiraLax NDC 97849 - orally once a day 17 g triamcinolone topical NDC 02704 0.1% applied topically as needed once a day Jun 05, 2014 1 moriah Zocor NDC 1546 40mg orally once daily at HS 1 tab(s) Tessalon Perles NDC 2377 100 mg orally as needed every 8h for cough May 1-2 cap(s) Contour EZ Next test strips NDC 0 Test Strips fingerstick once a day one strip janumet NDC 488162 5151/50mg orally 2 times a day 1 tab(s) Albuterol inh NDC 0 CFC free 90 mcg/inh inhaled q4-6 hrs prn sob, wheezing 1-2 puffs Cymbalta NDC 27329 60 mg orally once a day 1 cap(s) Maxzide NDC 1625 50 mg-75 mg orally once a day 1 tab(s) Procedures Procedure Coding System Code Date Office Visit, estab pt, Level 4 CPT-4 77037 Jun 05, 2014 Electrocardiogram, complete CPT-4 67373 Jun 05, 2014 Vital Signs Date/Time: Jun 05, 2014 Blood Pressure Systolic 122 mm Hg Temperature 98.1 F Weight 228.4 lbs Pain Scale 5 0-10 Blood Pressure Diastolic 72 mm Hg Results No Known Results Summary Purpose eClinicalWorks Submission
--- OUTSIDE RECORDS SUMMARY | 2016-12-29 12:14 | XMS REPORT ---
Author Author PRISCA WINTER [facility] Address [address] [place] [address] Care Team Providers Care Trial Mgr Name Role Phone PRISCA WINTER Unavailable PROBLEMS Type Condition ICD9-CM Code BOI39-DJ Code Onset Dates Condition Status SNOMED Code Problem Left foot drop M21.372 Active 2411048 Problem Major depressive disorder, recurrent, in partial remission F33.41 Active 495469486 Problem Generalized anxiety disorder F41.1 Active 650028765 Assessment Pre-op exam Z01.818 Jan, Active 879080269 Problem Unilateral femoral hernia, without obstruction or gangrene, not specified as recurrent K41.90 Active 56626138 Problem Frequent falls R29.6 Active 025689849 Problem Comminuted right humeral fracture S42.351A Active 56152183 Problem Essential hypertension I10 Active 99773920 Problem Hyperlipidemia associated with type 2 diabetes mellitus E11.69 Active 164503932179 Problem 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 649276941 Problem Type 2 diabetes mellitus with hyperglycemia E11.65 Active 20132100 ALLERGIES Unknown Allergies SOCIAL HISTORY No smoking Hx information available PLAN OF CARE VITAL SIGNS MEDICATIONS Unknown Medications RESULTS Name Result Date Reference Range CBC 2016-01-15 WBC 7.6 3.4-10.8 RBC 4.56 3.77-5.28 Hemoglobin 13.6 11.1-15.9 Hematocrit 39.0 34.0-46.6 MCV 86 79-97 MCH 29.8 26.6-33.0 MCHC 34.9 31.5-35.7 RDW 14.5 12.3-15.4 Platelets 318 150-379 Neutrophils 68 Lymphs 22 Monocytes 7 Eos 3 Basos 0 Immature Cells Neutrophils (Absolute) 5.1 1.4-7.0 Lymphs (Absolute) 1.7 0.7-3.1 Monocytes(Absolute) 0.5 0.1-0.9 Eos (Absolute) 0.3 0.0-0.4 Baso (Absolute) 0.0 0.0-0.2 Immature Granulocytes 0 Immature Grans (Abs) 0.0 0.0-0.1 NRBC Hematology Comments: CULTURE, URINE 2016-01-15 Urine Culture, Routine Final report Result 1 CMP 2016-01-15 Glucose, Serum 166 65-99 BUN 18 8-27 Creatinine, Serum 1.03 0.57-1.00 eGFR If NonAfricn Am 56 >59 eGFR If Africn Am 65 >59 BUN/Creatinine Ratio 17 11-26 Sodium, Serum 140 134-144 Potassium, Serum 4.3 3.5-5.2 Chloride, Serum 99 97-108 Carbon Dioxide, Total 23 18-29 Calcium, Serum 9.5 8.7-10.3 Protein, Total, Serum 7.1 6.0-8.5 Albumin, Serum 4.1 3.6-4.8 Globulin, Total 3.0 1.5-4.5 A/G Ratio 1.4 1.1-2.5 Bilirubin, Total 0.4 0.0-1.2 Alkaline Phosphatase, S 97 39-117 AST (SGOT) 19 0-40 ALT (SGPT) 16 0-32 UA W/CULTURE IF INDICATED (IN HOUSE) 2016-01-15 Lot # [id number] Exp date 12/2016 Clarity Clear Color Yellow Odor No GLU Negative JAYLYN Negative KET Negative SG 1.020 BLO Negative pH 7.0 Protein TRACE URO 1.0 NIT Negative SARIAH 1+ Lot # [id number] Exp date Xray : Chest (IN HOUSE) 2016-01-14 PROCEDURES Procedure Date Ordered Related Diagnosis Body Site EKG, TRACING (IN-HOUSE) 2016-01-15 Normal LAB NOT BILLED BY [facility] Jan 15, 2016 CHEST X-RAY Jan 15, 2016 VENIPUNCT, ROUTINE* Jan 15, 2016 URINALYSIS, AUTO, W/O SCOPE Jan 15, 2016 ELECTROCARDIOGRAM, TRACING Jan 15, 2016 IMMUNIZATIONS No Known Immunizations
--- OUTSIDE RECORDS SUMMARY | 2016-12-29 12:14 | XMS REPORT ---
Author Author PRISCA WINTER e[employer] Address Unknown Phone Unavailable Care Team Providers Care Cytogenetic Technologist Name Role Phone PRISCA WINTER Unavailable Allergies [...] Start Date End Date Status Dosage Percocet [facility] [address]-75 7.5-325 MG Orally every 4 hrs Apr 09, 2015 1-2 tablet as needed Results No Known Results Summary Purpose LOC&ALLinicalWorks Submission
--- OUTSIDE RECORDS SUMMARY | 2016-12-29 12:14 | XMS REPORT ---
Author Author PRISCA WINTER Organization [facility] Address [address] [place] [address] Care Team Providers Care Coil Inspector Name Role Phone PRISCA WINTER Unavailable PROBLEMS Type Condition ICD9-CM Code [id number] Code Onset Dates Condition Status SNOMED Code Problem Comminuted right humeral fracture S42.351A Active 49921733 Problem Gastroesophageal reflux disease without esophagitis K21.9 Active 458577094 Problem Frequent falls R29.6 Active 016767467 Problem Stage 3 chronic kidney disease N18.3 Active 142417308 Problem Stress incontinence N39.3 Active 04136749 Problem Vitamin D deficiency E55.9 Active 37967971 Problem Mild persistent asthma without complication J45.30 Active 901059424 Problem Urge incontinence N39.41 Active 65558060 Problem History of sarcoidosis Z86.2 Active 244836442 Problem Unilateral femoral hernia, without obstruction or gangrene, not specified as recurrent K41.90 Active 90345344 Problem Left foot drop M21.372 Active 3577994 Problem Hyperlipidemia associated with type 2 diabetes mellitus E11.69 Active 869291203741 Problem Essential hypertension I10 Active 65242011 Problem Generalized anxiety disorder F41.1 Active 493347916 Problem Type 2 diabetes mellitus with hyperglycemia E11.65 Active 71999187 Problem Major depressive disorder, recurrent, in partial remission F33.41 Active 983056769 Problem 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 385519641 ALLERGIES Unknown Allergies SOCIAL HISTORY No smoking Hx information available PLAN OF CARE VITAL SIGNS MEDICATIONS Medication Instructions Dosage Frequency Start Date End Date Duration Status Advair Diskus 250-50 MCG/DOSE Inhalation Twice a day 1 puff 12h Active RESULTS No Results PROCEDURES No Known procedures IMMUNIZATIONS No Known Immunizations
--- OUTSIDE RECORDS SUMMARY | 2016-12-29 12:15 | XMS REPORT ---
Author Author PRISCA WINTER [facility] eClinicalWorks Address Unknown Phone Unavailable Care Team Providers Care Boiler Repair Supervisor Name Role Phone PRISCA WINTER CP Unavailable [...]
--- OUTSIDE RECORDS SUMMARY | 2016-12-29 12:15 | XMS REPORT ---
Author Author PRISCA WINTER [employer] Address Unknown Phone Unavailable Care Team Providers Care Financial Services Intern Name Role Phone PRISCA WINTER Unavailable Allergies [...] Start Date End Date Status Dosage Percocet [facility] [address]-00 7.5-325 MG Orally every 4 hrs Apr 09, 2015 1-2 tablet as needed Results No Known Results Summary Purpose Adility[employer]Works Submission
--- OUTSIDE RECORDS SUMMARY | 2016-12-29 12:15 | XMS REPORT ---
Author Author PRISCA WINTER Organization [facility] Address [address] [place] [address] Care Team Providers Care Negotiator Sales Name Role Phone PRISCA WINTER Unavailable PROBLEMS Type Condition ICD9-CM Code SOP96-DA Code Onset Dates Condition Status SNOMED Code Problem Comminuted right humeral fracture S42.351A Active 72001858 Problem Gastroesophageal reflux disease without esophagitis K21.9 Active 439278668 Problem Frequent falls R29.6 Active 844728587 Problem Stage 3 chronic kidney disease N18.3 Active 497213901 Problem Stress incontinence N39.3 Active 76800750 Problem Vitamin D deficiency E55.9 Active 36189317 Problem Mild persistent asthma without complication J45.30 Active 843801677 Problem Urge incontinence N39.41 Active 76315152 Problem History of sarcoidosis Z86.2 Active 576980017 Problem Unilateral femoral hernia, without obstruction or gangrene, not specified as recurrent K41.90 Active 26622720 Problem Left foot drop M21.372 Active 2795753 Problem Hyperlipidemia associated with type 2 diabetes mellitus E11.69 Active 531736016893 Problem Essential hypertension I10 Active 25960859 Problem Generalized anxiety disorder F41.1 Active 407440557 Problem Type 2 diabetes mellitus with hyperglycemia E11.65 Active 82151566 Problem Major depressive disorder, recurrent, in partial remission F33.41 Active 739447843 Problem 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 032091159 ALLERGIES Unknown Allergies SOCIAL HISTORY No smoking Hx information available PLAN OF CARE VITAL SIGNS MEDICATIONS Medication Instructions Dosage Frequency Start Date End Date Duration Status Dulera 100-5 MCG/ACT Inhalation Twice a day 2 puffs 12h 20 Apr, 2016 Active RESULTS No Results PROCEDURES No Known procedures IMMUNIZATIONS No Known Immunizations
--- OUTSIDE RECORDS SUMMARY | 2016-12-29 12:15 | XMS REPORT ---
Author Author BOWEN TOLEDO [facility] eClinicalWorks Address Unknown Phone Unavailable Care Team Providers Care Automatic Head Sawyer Name Role Phone BOWEN TOLEDO Unavailable Allergies, Adverse Reactions, Alerts Substance Reaction Event Type N.K.D.A. Info Not Available Non Drug Allergy Problems Problem Type Condition Code Onset Dates Condition Status Problem Insomnia 780.52 Active Problem Hyperlipidemia, mixed 272.2 Active Problem Depression with anxiety 300.4 Active Problem Cystocele w/o mention of uterine prolapse 618.00 Active Assessment Vulvovaginitis 616.10 Active Problem Chest pressure 786.59 Active Problem CONSTIPATION NOS 564.00 Active Problem HTN [Hypertension] 401.9 Active Problem Diabetes Mellitus type 2, controlled 250.00 Active Problem Cough 786.2 Active Problem Tachycardia 785.0 Active Assessment Chest pressure 786.59 Active Assessment Tachycardia 785.0 Active Assessment Cystocele w/o mention of uterine prolapse 618.00 Active Assessment CONSTIPATION NOS 564.00 Active Assessment Depression with anxiety 300.4 Active Assessment Hyperlipidemia, mixed 272.2 Active Assessment Cough 786.2 Active Assessment Diabetes Mellitus type 2, controlled 250.00 Active Assessment Insomnia 780.52 Active Assessment HTN [Hypertension] 401.9 Active Medications Medication Code System Code Instructions Start Date End Date Status Dosage Zoloft NDC 1554 50 mg orally once a day August 22, 2014 1 tab(s) Jasmin NDC 0 180 mg as directed albuterol NDC 73944 2.5 mg/3 mL (0.083%) inhaled as needed every 4-6 hrs Jun 01, 2014 3 mL Albuterol inh NDC 0 CFC free 90 mcg/inh inhaled q4-6 hrs prn sob, wheezing 1-2 puffs triamcinolone topical NDC 16623 0.1% applied topically as needed once a day Jun 05, 2014 1 moriah janumet NDC 189465 8966/50mg orally 2 times a day 1 tab(s) Cymbalta NDC 18064 60 mg orally once a day Jun 14, 2014 1 cap(s) Vitamin D NDC 6150 50,000 intl units orally once weekly 1 cap(s) Contour EZ Next test strips NDC 0 Test Strips fingerstick once a day one strip Maxzide NDC 1625 50 mg-75 mg orally once a day 1 tab(s) MiraLax NDC 74935 - orally once a day 17 g Advair Diskus NDC 28023 100 mcg-50 mcg inhaled 2 times a day Jun 05, 2014 1 puff(s) Zocor NDC 1546 40mg orally once daily at HS July 26, 2014 1 tab(s) Vital Signs Date/Time: October 08, 2014 Blood Pressure Diastolic 72 mm Hg Blood Pressure Systolic 118 mm Hg Weight 229.8 lbs Pain Scale 0 0-10 Results No Known Results Summary Purpose eClinicalWorks Submission
--- OUTSIDE RECORDS SUMMARY | 2016-12-29 12:15 | XMS REPORT ---
Author Author PRISCA WINTER eClinical[employer] Address Unknown Phone Unavailable Care Team Providers Care Thread Puller Name Role Phone PRISCA WINTER CP Unavailable Allergies, Adverse Reactions, Alerts Substance Reaction Event Type N.K.D.A. Info Not Available Non Drug Allergy Problems Problem Type Condition Code Onset Dates Condition Status Assessment Comminuted right humeral fracture S42.351A Active Problem Unilateral femoral hernia, without obstruction or gangrene, not specified as recurrent K41.90 Active Assessment Major depressive disorder, recurrent, in partial remission F33.41 Active Assessment Constipation K59.00 Active Problem Type 2 diabetes mellitus with [...] Start Date End Date Status Dosage Cymbalta [facility] [address]-96 60 MG Orally Once a day 1 capsule Percocet [facility] [address]-39 7.5-325 MG Orally every 4 hrs Apr 09, 2015 1-2 tablet as needed Zoloft [facility] [address]-14 50 MG Orally Once a day 1 tablet Janumet [facility] [address]-41 50-1000 MG Orally Twice a day 1 tablet with meals Advair Diskus [facility] [address]-74 100-50 MCG/DOSE Inhalation Twice a day prn 1 puff Triamterene-HCTZ [facility] [address]-07 37.5-25 MG Orally Once a day 1 tablet in the morning MiraLax [facility] [address]-70 17 gm/dose Orally Once a day 17 grams mixed in 8 oz of water or juice Zocor [facility] [address]-87 10 MG Orally Once a day 1 tablet in the evening Vitamin D (Ergocalciferol) [facility] [address]-17 415[address] UNIT Orally once a week 1 capsule Senna-S [facility] [address]-07 8.6-50 MG Orally 2 times a day while takng pain medication Apr 18, 2015 Jun 17, 2015 1 tablet Albuterol Sulfate [facility] [address]-96 (2.5 MG/3ML) 0.083% Inhalation every 4 hrs as needed for wheezing/cough 3 ml Jasmin Allergy [facility] [address] 180 MG Orally Once a day as needed 1 tablet Procedures Procedure Coding System Code Date Office Visit, Est Pt., Level 3 CPT-4 70140 Apr 18, 2015 [facility] VISIT ESTABLISHED PATIENT CPT-4 G0467 Apr 18, 2015 Vital Signs Date/Time: Apr 18, 2015 Temperature 97.7 F Weight 216.8 lbs Height 5'8" in BMI 32.96 Index Blood Pressure Diastolic 64 mmHg Blood Pressure Systolic 116 mmHg Cardiac Monitoring Heart Rate 96 bpm Results No Known Results Summary Purpose eClinicalWorks Submission
--- OUTSIDE RECORDS SUMMARY | 2016-12-29 12:15 | XMS REPORT ---
Author Author BOWEN TOLEDO Organization e[employer] Address Unknown Phone Unavailable Care Team Providers Care Assembler Knife Name Role Phone BOWEN TOLEDO CP Unavailable Allergies No Known Allergies Problems Problem Type Condition ICD-9 Code Onset Dates Condition Status Problem Tachycardia 785.0 Active Problem HTN [Hypertension] 401.9 Active Problem Cough 786.2 Active Problem Depression with anxiety 300.4 Active Problem Insomnia 780.52 Active Problem Diabetes Mellitus type 2, controlled 250.00 Active Problem Hyperlipidemia, mixed 272.2 Active Medications Medication Code System Code Instructions Start Date End Date Status Dosage Cymbalta [facility] [address] 60 mg orally once a day Jun 14, 2014 1 cap(s) Results No Known Results Summary Purpose eClinicalWorks Submission
--- OUTSIDE RECORDS SUMMARY | 2016-12-29 12:15 | XMS REPORT ---
Author Author BOWEN TOLEDO [facility] eClinicalWorks Address Unknown Phone Unavailable Care Team Providers Care Platen Press Operator Name Role Phone BOWEN TOLEDO Unavailable Allergies, [...] 786.2 Active Problem Tachycardia 785.0 Active Assessment URINARY HESITANCY 788.64 Active Assessment CONSTIPATION NOS 564.00 Active Assessment Cystocele w/o mention of uterine prolapse 618.00 Active Assessment Low back pain 724.2 Active Assessment hip pain 719.45 Active Assessment Diabetes Mellitus type 2, controlled 250.00 Active Medications Medication Code System Code Instructions Start Date End Date Status Dosage MiraLax NDC 18389 - orally once a day 17 g Cymbalta NDC 73229 60 mg orally once a day Jun 14, 2014 1 cap(s) Contour EZ Next test strips NDC 0 Test Strips fingerstick once a day one strip Jasmin NDC 0 180 mg as directed clonazepam NDC 20530 0.5 mg orally daily at bedtime May 01, 2014 1 tab(s) Zoloft NDC 1554 50 mg orally once a day 1 tab(s) Tessalon Perles NDC 2377 100 mg orally as needed every 8h for cough May 1-2 cap(s) albuterol NDC 62437 2.5 mg/3 mL (0.083%) inhaled as needed every 4-6 hrs Jun 01, 2014 3 mL Zocor NDC 1546 40mg orally once daily at HS July 14, 2014 1 tab(s) triamcinolone topical NDC 42525 0.1% applied topically as needed once a day Jun 05, 2014 1 moriah janumet NDC 865609 8251/50mg orally 2 times a day 1 tab(s) One Touch Ultra Test Strips NDC 0 . fingerstick as needed once a day Dec as directed Vitamin D NDC 6150 50,000 intl units orally once weekly 1 cap(s) diclofenac NDC 86210 sodium 75 mg orally 2 times a day 1 tab(s) Advair Diskus NDC 79145 100 mcg-50 mcg inhaled 2 times a day Jun 05, 2014 1 puff(s) Albuterol inh NDC 0 CFC free 90 mcg/inh inhaled q4-6 hrs prn sob, wheezing 1-2 puffs Maxzide NDC 1625 50 mg-75 mg orally once a day 1 tab(s) Procedures Procedure Coding System Code Date Office Visit, estab pt, Level 4 CPT-4 43902 July 26, 2014 Urine Dip (Urinalysis nonauto w/o scope) CPT-4 08726 July 26, 2014 Vital Signs Date/Time: July 26, 2014 Blood Pressure Diastolic 68 mm Hg Blood Pressure Systolic 120 mm Hg Weight 228.5 lbs Pain Scale 0 0-10 Results No Known Results Summary Purpose eClinicalWorks Submission
--- OUTSIDE RECORDS SUMMARY | 2016-12-29 12:16 | XMS REPORT | Continuity of Care Document ---
Author Author [facility] Address Unknown Phone Unavailable Allergies Active Description Code Type Severity Reaction Onset Reported/Identified Relationship to Patient Clinical Status Yes No Known Allergies No Known Allergies Drug Allergy Unknown N/A 03/29/2015 Yes No Known Drug Allergies [id number] Drug Allergy Unknown N/ A 12/14/2016 Medications Problems Date Dx Coded Attending Type Code Diagnosis Diagnosed By 04/08/1133 PRISCA WINTER MD Ot Z91.81 HISTORY OF FALLING 04/08/1320 SUSAN OCHOA MD, Ot S42.491D OTH DISP FX OF LOWER END R HUMER, SUBS F 04/08/1320 SUSAN OCHOA MD, Ot W19.XXXD UNSPECIFIED FALL, SUBSEQUENT ENCOUNTER 04/08/1320 SUSAN OCHOA MD, Ot Y92.[address] [facility] 04/08/1320 SUSAN OCHOA MD, Ot Y99.8 OTHER EXTERNAL CAUSE STATUS 04/13/2013 NIKOLAY TORREZ CRYSTAL K V06.1 TDAP DX 04/13/2013 PRISCA WINTER MD V06.1 TDAP DX 08/10/2014 PRISCA WINTER MD N 250.00 DIABETES II CONTROLLED (UNCOMPLICATED) 08/10/2014 PRISCA WINTER MD 272.4 HYPERLIPIDEMIA 08/10/2014 PRISCA WINTER MD 296.20 MAJOR DEPRESSIVE AFFECTIVE DISORDER SINGLE EPISODE UNSPECIFIED DEGREE 08/10/2014 PRISCA WINTER MD 553.00 UNILATERAL OR UNSPECIFIED FEMORAL HERNIA WITHOUT OBSTRUCTION OF GANGRENE 08/10/2014 PRISCA WINTER MD 796.2 ELEVATED BLOOD PRESSURE READING WITHOUT DIAGNOSIS OF HYPERTENSION 03/30/2015 Susan Ochoa MD E11.9 TYPE 2 DIABETES MELLITUS WITHOUT COMPLICATIONS 03/30/2015 Susan Ochoa MD E78.5 HYPERLIPIDEMIA, UNSPECIFIED 03/30/2015 Susan Ochoa MD F41.8 OTHER SPECIFIED ANXIETY DISORDERS 03/30/2015 Susan Ochoa MD G62.9 POLYNEUROPATHY, UNSPECIFIED 03/30/2015 Susan Ochoa MD J45.909 UNSPECIFIED ASTHMA, UNCOMPLICATED 03/30/2015 Susan Ohcoa MD M79.601 PAIN IN RIGHT ARM 03/30/2015 Susan Ochoa MD N28.9 DISORDER OF KIDNEY AND URETER, UNSPECIFIED 03/30/2015 Susan Ochoa MD N39.3 STRESS INCONTINENCE (FEMALE) (MALE) 03/30/2015 Susan Ochoa MD S42.491A OTH DISP FX OF LOWER END OF RIGHT HUMERUS, INIT FO 03/30/2015 Susan Ochoa MD W01.0XXA FALL SAME LEV FROM SLIP/TRIP W/O STRIKE AGAINST OB 03/30/2015 Susan Ochoa MD Z79.01 MCC (CURRENT) USE OF ANTICOAGULANTS 03/30/2015 Susan Ochoa MD Z79.4 PROFESSIONAL MODEL (CURRENT) USE OF INSULIN 03/30/2015 Susan Ochoa MD Z86.718 PERSONAL HISTORY OF OTHER VENOUS THROMBOSIS AND EM 06/27/2015 OTHER, UNLISTED Ot S42.491D 06/27/2015 OTHER, UNLISTED Ot W19.XXXD 06/27/2015 OTHER, UNLISTED Ot Y92.009 06/27/2015 OTHER, UNLISTED Ot Y99.8 07/05/2015 OTHER, UNLISTED Ot S42.491D 07/05/2015 OTHER, UNLISTED Ot W19.XXXD 07/05/2015 OTHER, UNLISTED Ot Y92.009 07/05/2015 OTHER, UNLISTED Ot Y99.8 07/18/2015 SUSAN OCHOA MD Ot S42.491D 07/18/2015 SUSAN OCHOA MD Ot W19.XXXD 07/18/2015 SUSAN OCHOA MD Ot Y99.8 08/05/2015 OTHER, UNLISTED Ot S42.491D 08/05/2015 OTHER, UNLISTED Ot W19.XXXD 08/05/2015 OTHER, UNLISTED Ot Y92.009 08/05/2015 OTHER, UNLISTED Ot Y99.8 08/13/2015 OTHER, UNLISTED Ot S42.491D OTH DISP FX OF LOWER END R HUMER, SUBS F 08/13/2015 OTHER, UNLISTED Ot W19.XXXD UNSPECIFIED FALL, SUBSEQUENT ENCOUNTER 08/13/2015 OTHER, UNLISTED Ot Y92.[address] IN [facility] NON-INSTITUT (PRIVATE 08/13/2015 OTHER, UNLISTED Ot Y99.8 OTHER EXTERNAL CAUSE STATUS 08/15/2015 OTHER, UNLISTED Ot S42.491D 08/15/2015 OTHER, UNLISTED Ot W19.XXXD 08/15/2015 OTHER, UNLISTED Ot Y92.009 08/15/2015 OTHER, UNLISTED Ot Y99.8 09/05/2015 JONAH CALIXTO, SUSAN Pack Ot S42.491D OTH DISP FX OF LOWER END R HUMER, SUBS F 09/05/2015 SUSAN OCHOA MD Ot W19.XXXD UNSPECIFIED FALL, SUBSEQUENT ENCOUNTER 09/05/2015 JONAH CALIXTO, SUSAN Pack Ot Y99.8 OTHER EXTERNAL CAUSE STATUS 09/05/2015 SUSAN OCHOA MD Ot S42.491D OTH DISP FX OF LOWER END R HUMER, SUBS F 09/05/2015 SUSAN OCHOA MD Ot W19.XXXD UNSPECIFIED FALL, SUBSEQUENT ENCOUNTER 09/05/2015 SUSAN OCHOA MD Ot Y92.[address] IN [facility] NON-INSTITUT ( PRIVATE 09/05/2015 SUSAN OCHOA MD Ot Y99.8 OTHER EXTERNAL CAUSE STATUS 09/09/2015 MOY CALIXTO, PRISCA Yoder Ot R07.81 PLEURODYNIA 09/11/2015 PRISCA WINTER MD Ot R07.81 PLEURODYNIA 09/25/2015 MOY CALIXTO, PRISCA Yoder Ot Z91.81 HISTORY OF FALLING 09/26/2015 MOY CALIXTO, PRISCA Yoder Ot R07.81 PLEURODYNIA 09/30/2015 PRISCA WINTER MD Ot R07.81 PLEURODYNIA 10/08/2015 SUSAN OCHOA MD Ot S42.491D OTH DISP FX OF LOWER END R HUMER, SUBS F 10/08/2015 JONAH CALIXTO, SUSAN Pack Ot W19.XXXD UNSPECIFIED FALL, SUBSEQUENT ENCOUNTER 10/08/2015 SUSAN OCHOA MD Ot Y92.[address] IN [facility] NON-INSTITUT ( PRIVATE 10/08/2015 SUSAN OCHOA MD Ot Y99.8 OTHER EXTERNAL CAUSE STATUS 10/09/2015 SUSAN OCHOA MD Ot S42.491D OTH DISP FX OF LOWER END R HUMER, SUBS F 10/09/2015 SUSAN OCHOA MD Ot W19.XXXD UNSPECIFIED FALL, SUBSEQUENT ENCOUNTER 10/09/2015 SUSAN OCHOA MD Ot Y92.[address] IN [facility] NON-INST[facility] ( PRIVATE 10/09/2015 SUSAN OCHOA MD Ot Y99.8 OTHER EXTERNAL CAUSE STATUS 10/10/2015 SUSAN OCHOA MD Ot S42.491D OTH DISP FX OF LOWER END R HUMER, SUBS F 10/10/2015 SUSAN OCHOA MD Ot W19.XXXD UNSPECIFIED FALL, SUBSEQUENT ENCOUNTER 10/10/2015 SUSAN OCHOA MD Ot Y92.[address] IN [facility] NON-INSTITUT ( PRIVATE 10/10/2015 SUSAN OCHOA MD Ot Y99.8 OTHER EXTERNAL CAUSE STATUS 10/10/2015 SUSAN OCHOA MD Ot S42.491D OTH DISP FX OF LOWER END R HUMER, SUBS F 10/10/2015 SUSAN OCHOA MD Ot W19.XXXD UNSPECIFIED FALL, SUBSEQUENT ENCOUNTER 10/10/2015 SUSAN OCHOA MD Ot Y92.[address] IN [facility] NON-INSTITUT ( PRIVATE 10/10/2015 SUSAN OCHOA MD Ot Y99.8 OTHER EXTERNAL CAUSE STATUS 11/02/2015 SUSAN OCHOA MD Ot S42.491D OTH DISP FX OF LOWER END R HUMER, SUBS F 11/02/2015 SUSAN OCHOA MD Ot W19.XXXD UNSPECIFIED FALL, SUBSEQUENT ENCOUNTER 11/02/2015 SUSAN OCHOA MD Ot Y92.[address] IN [facility] NON-INSTITUT ( PRIVATE 11/02/2015 SUSAN OCHOA MD Ot Y99.8 OTHER EXTERNAL CAUSE STATUS 11/05/2015 USSAN OCHOA MD Ot S42.491D OTH DISP FX OF LOWER END R HUMER, SUBS F 11/05/2015 SUSAN OCHOA MD Ot W19.XXXD UNSPECIFIED FALL, SUBSEQUENT ENCOUNTER 11/05/2015 SUSAN OCHOA MD Ot Y92.[address] IN [facility] NON-INST[facility] ( PRIVATE 11/05/2015 SUSAN OCHOA MD Ot Y99.8 OTHER EXTERNAL CAUSE STATUS 12/12/2015 SUSAN OCHOA MD, Ot S42.491D OTH DISP FX OF LOWER END R HUMER, SUBS F 12/12/2015 SUSAN OCHOA MD Ot W19.XXXD UNSPECIFIED FALL, SUBSEQUENT ENCOUNTER 12/12/2015 SUSAN OCHOA MD Ot Y92.[address] IN [facility] NON-INST[facility] ( PRIVATE 12/12/2015 SUSAN OCHOA MD Ot Y99.8 OTHER EXTERNAL CAUSE STATUS 02/11/2016 SUSAN OCHOA MD Ot S42.491D OTH DISP FX OF LOWER END R HUMER, SUBS F 02/11/2016 SUSAN OCHOA MD Ot W19.XXXD UNSPECIFIED FALL, SUBSEQUENT ENCOUNTER 02/11/2016 SUSAN OCHOA MD Ot Y99.8 OTHER EXTERNAL CAUSE STATUS 02/11/2016 MOY CALIXTO, PRISCA Yoder Ot R07.81 PLEURODYNIA 03/23/2016 OTHER, UNLISTED Ot 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, RIGHT ELBOW 03/23/2016 OTHER, UNLISTED Ot S42.491D OTH DISP FX OF LOWER END R HUMER, SUBS F 03/30/2016 SUSAN OCHOA MD Ot S42.491D OTH DISP FX OF LOWER END R HUMER, SUBS F 03/30/2016 SUSAN OCHOA MD Ot W19.XXXD UNSPECIFIED FALL, SUBSEQUENT ENCOUNTER 03/30/2016 SUSAN OCHOA MD Ot Y99.8 OTHER EXTERNAL CAUSE STATUS 03/30/2016 MOY CALIXTO, PRISCA Yoder Ot R07.81 PLEURODYNIA 03/30/2016 OTHER, UNLISTED Ot 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, RIGHT ELBOW 03/30/2016 OTHER, UNLISTED Ot S42.491D OTH DISP FX OF LOWER END R HUMER, SUBS F 03/30/2016 JONAH CALIXTO, SUSAN Pack Ot S42.491D OTH DISP FX OF LOWER END R HUMER, SUBS F 03/30/2016 JONAH CALIXTO, SUSAN Pack Ot W19.XXXD UNSPECIFIED FALL, SUBSEQUENT ENCOUNTER 03/30/2016 JONAH CALIXTO, SUSAN Pack Ot Y99.8 OTHER EXTERNAL CAUSE STATUS 03/30/2016 MOY CALIXTO, PRISCA Yoder Ot R07.81 PLEURODYNIA 03/30/2016 OTHER, UNLISTED Ot 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, RIGHT ELBOW 03/30/2016 OTHER, UNLISTED Ot S42.491D OTH DISP FX OF LOWER END R HUMER, SUBS F 04/07/2016 OTHER, UNLISTED Ot 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, RIGHT ELBOW 04/07/2016 OTHER, UNLISTED Ot S42.491D OTH DISP FX OF LOWER END R HUMER, SUBS F 04/10/2016 OTHER, UNLISTED Ot 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, RIGHT ELBOW 04/10/2016 OTHER, UNLISTED Ot S42.491D OTH DISP FX OF LOWER END R HUMER, SUBS F 05/12/2016 OTHER, UNLISTED Ot 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, RIGHT ELBOW 05/12/2016 OTHER, UNLISTED Ot S42.491D OTH DISP FX OF LOWER END R HUMER, SUBS F 05/15/2016 BRISA ALONSO PA-C Ot 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, RIGHT ELBOW 05/15/2016 BRISA ALONSO PA-C Ot S42.491D OTH DISP FX OF LOWER END R HUMER, SUBS F 06/11/2016 MOY CALIXTO, PRISCA Yoder Ot J45.30 MILD PERSISTENT ASTHMA, UNCOMPLICATED 07/01/2016 BRISA ALONSO PA-C Ot 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, RIGHT ELBOW 07/01/2016 BRISA ALONSO PA-C Ot S42.491D OTH DISP FX OF LOWER END R HUMER, SUBS F 07/06/2016 MOY CALIXTO, PRISCA Yoder Ot J45.30 MILD PERSISTENT ASTHMA, UNCOMPLICATED 07/08/2016 MOY CALIXTO, PRISCA Yoder Ot Z12.31 ENCNTR SCREEN MAMMOGRAM FOR MALIGNANT NE 07/08/2016 PRISCA WINTER MD Ot Z12.31 ENCNTR SCREEN MAMMOGRAM FOR MALIGNANT NE 07/08/2016 MOY CALIXTO, PRISCA Yoder Ot J45.30 MILD PERSISTENT ASTHMA, UNCOMPLICATED 07/09/2016 MOY CALIXTO, PRISCA Yoder Ot Z12.31 ENCNTR SCREEN MAMMOGRAM FOR MALIGNANT NE 07/09/2016 EMERY GARDUNO DO Ot D86.9 SARCOIDOSIS, UNSPECIFIED 07/09/2016 EMERY GARDUNO DO Ot J45.909 UNSPECIFIED ASTHMA, UNCOMPLICATED 07/09/2016 EMERY GARDUNO DO Ot D86.9 SARCOIDOSIS, UNSPECIFIED 07/09/2016 EMERY GARDUNO DO Ot J45.909 UNSPECIFIED ASTHMA, UNCOMPLICATED 07/13/2016 LUIS CARLOS TORREZ, MIKE F Ot M94.262 CHONDROMALACIA, LEFT KNEE 07/16/2016 LUIS CARLOS , MIKE F Ot M94.262 CHONDROMALACIA, LEFT KNEE 07/17/2016 LUIS CARLOS TORREZ, MIKE F Ot M94.262 CHONDROMALACIA, LEFT KNEE 07/28/2016 MOY CALIXTO, PRISCA Yoder Ot Z12.31 ENCNTR SCREEN MAMMOGRAM FOR MALIGNANT NE 07/30/2016 EMERY GARDUNO DO Ot D86.9 SARCOIDOSIS, UNSPECIFIED 07/30/2016 EMERY GARDUNO DO Ot J45.909 UNSPECIFIED ASTHMA, UNCOMPLICATED 08/04/2016 LUIS CARLOS TORREZ MKIE F Ot M94.262 CHONDROMALACIA, LEFT KNEE 08/04/2016 EMERY GARDUNO DO Ot D86.9 SARCOIDOSIS, UNSPECIFIED 08/04/2016 EMERY GARDUNO DO Ot J45.909 UNSPECIFIED ASTHMA, UNCOMPLICATED 08/06/2016 LUIS CARLOS TORREZ MIKE F Ot M94.262 CHONDROMALACIA, LEFT KNEE 08/11/2016 EMERY GARDUNO DO Ot D86.9 SARCOIDOSIS, UNSPECIFIED 08/11/2016 EMERY GARDUNO DO Ot J45.909 UNSPECIFIED ASTHMA, UNCOMPLICATED 09/30/2016 EMERY GARDUNO DO Ot D86.9 SARCOIDOSIS, UNSPECIFIED 09/30/2016 EMERY GARDUNO DO Ot J45.909 UNSPECIFIED ASTHMA, UNCOMPLICATED 10/07/2016 SAYRA GARDUNO DOSON M Ot D86.9 SARCOIDOSIS, UNSPECIFIED 10/07/2016 LAUREEN DOSAYRAEMERY M Ot J45.909 UNSPECIFIED ASTHMA, UNCOMPLICATED 11/08/2016 LAUREEN DOSAYRAEMERY M Ot D86.9 SARCOIDOSIS, UNSPECIFIED 11/08/2016 LAUREEN DOSAYRAEMERY M Ot J45.909 UNSPECIFIED ASTHMA, UNCOMPLICATED 11/12/2016 LAUREEN DOSAYRAEMERY M Ot D86.9 SARCOIDOSIS, UNSPECIFIED 11/12/2016 LAUREEN DOSAYRAEMERY M Ot J45.909 UNSPECIFIED ASTHMA, UNCOMPLICATED 11/12/2016 LAUREEN DOSAYRAEMERY M Ot D86.9 SARCOIDOSIS, UNSPECIFIED 11/12/2016 LAUREEN DOSAYRAEMERY M Ot J45.909 UNSPECIFIED ASTHMA, UNCOMPLICATED 11/13/2016 LAUREEN DOSAYRAEMERY M Ot D86.9 SARCOIDOSIS, UNSPECIFIED 11/13/2016 LAUREEN DO EMERY M Ot J45.909 UNSPECIFIED ASTHMA, UNCOMPLICATED 11/13/2016 LAUREEN DOSAYRAEMERY M Ot D86.9 SARCOIDOSIS, UNSPECIFIED 11/13/2016 LAUREEN DOSAYRAEMERY M Ot J45.909 UNSPECIFIED ASTHMA, UNCOMPLICATED 11/26/2016 MOY CALIXTO, PRISCA Yoder Ot N18.3 CHRONIC KIDNEY DISEASE, STAGE 3 (MODERAT 11/26/2016 PRISCA WINTER MD Ot N26.1 ATROPHY OF KIDNEY (TERMINAL) 12/04/2016 PRISCA WINTER MD Ot N18.3 CHRONIC KIDNEY DISEASE, STAGE 3 (MODERAT 12/04/2016 PRISCA WINTER MD Ot N26.1 ATROPHY OF KIDNEY (TERMINAL) 12/23/2016 NEERU CABAN DO Ot D64.9 ANEMIA, UNSPECIFIED 12/23/2016 NEERU CABAN DO Ot K59.00 CONSTIPATION, UNSPECIFIED 12/23/2016 NEERU CABAN DO Ot Z01.818 ENCOUNTER FOR OTHER PREPROCEDURAL EXAMIN 12/23/2016 NEERU CABAN DO Ot Z86.010 PERSONAL HISTORY OF COLONIC POLYPS Procedures Code Description [place] [address] A1C (IN-HOUSE) [id number] REPOSITION RIGHT HUMERAL SHAFT WITH INT FIX, Susan Shanks MD 03/30/2015 Encounters ACCT No. Visit Date/Time Discharge Status Pt. Type Provider Facility Loc./Unit Complaint [id number] 08/10/2014 13:59:00 08/10/2014 23: 59:59 CLS Outpatient PRISCA WINTER MD [id number] 04/13/2013 08:45:00 04/13/2013 23: 59:59 CLS Outpatient CRYSTAL LINK DO [id number] 10/03/2014 08:43:54 10/03/2014 23:59:00 [id number]2014 16:52:45 06/05/2014 23:59:00 DIS Outpatient [facility] [id number] 05/18/2014 16:56:26 05/18/2014 23:59:00 DIS Outpatient [facility] [id number] 02/12/2014 18:51:42 02/12/2014 23:59:00 DIS Outpatient GIRISHSirena [facility] [id number] 01/04/2014 06:39:12 01/04/2014 23:59:00 DIS Outpatient [facility] [id number] 10/05/2013 13:46:32 10/05/2013 23:59:00 DIS Outpatient [facility] [id number] 03/30/2015 13:15:00 2014 13:25:00 DIS Inpatient Jonah CALIXTO, [facility] W.9TN [id number] 12/23/2016 05:34:00 2016 23:59:59 CLS Outpatient NEERU CABAN DO [facility] PREOP ANEMIA, CONSTIPATION, HISTORY OF COLON POLYPS [id number] 12/15/2016 08:45:00 2016 23:59:59 CLS Preadmit NEERU CABAN DO [facility] ENDO ANEMIA, CONSTIPATION, HX COLON POLYPS [id number] 12/14/2016 05:40:00 2016 10:27:00 DIS Outpatient NEERU CABAN DO [facility] PREOP COLONSCOPY [id number] 11/12/2016 13:29:00 2016 23:59:59 CLS Outpatient EMERY GARDUNO DO [facility] PULM ASTHMA [id number] 11/05/2016 13:00:00 2016 00:01:00 DIS Outpatient EMERY GARDUNO DO [facility] PULM ASTHMA [id number] 11/04/2016 12:03:00 2016 23:59:59 CLS Outpatient PRISCA WINTER MD [facility] RAD STAGE 3 CKD N18.3 [id number] 07/11/2016 15:32:00 2016 23:59:59 CLS Outpatient MIKE ALDRIDGE DO [facility] RAD LT KNEE CHONDROMALACIA [id number] 07/09/2016 15:01:00 2016 23:59:59 CLS Outpatient EMERY GARDUNO DO [facility] RAD ASTHMA [id number] 07/07/2016 11:00:00 2016 23:59:59 CLS Outpatient PRISCA WINTER MD [facility] RAD SCREENING [id number] 06/04/2016 13:05:00 2016 12:01:00 DIS Outpatient BRISA ALONSO PA-C [facility] REHAB CONTRACTURE R ELBOW; DISPLACED FRACTURE OF LOWER EN [id number] 06/10/2016 09:57:00 2016 23:59:59 CLS Outpatient PRISCA WINTER MD [facility] RT MILD PERSISTENT ASTHMA [id number] 05/12/2016 09:28:00 2016 00:01:00 DIS Outpatient OTHER, UNLISTED [facility] REHAB CONTRACTURE R ELBOW;DISPLACED FRACTURE OF LOWER EN [id number] 11/19/2015 10:04:00 2015 13:21:00 DIS Outpatient SUSAN OCHOA MD [facility] REHAB DISPLACED FX OF LOWER END OF R HUMERUS [id number] 09/25/2015 10:43:00 2015 11:34:00 DIS Outpatient PRISCA WINTER MD [facility] REHAB FREQUENT FALLS AND GAIT EVALUATION [id number] 09/05/2015 14:25:00 2015 23:59:59 CLS Outpatient PRISCA WINTER MD [facility] RAD RIB PAIN [id number] 08/13/2015 10:34:00 2015 00:01:00 DIS Outpatient OTHER, UNLISTED [facility] REHAB DISPLACED FX OF LOWER END OF R HUMERUS [id number] 06/27/2015 10:34:00 2015 23:59:59 CLS Outpatient JONAH CALIXTO, SUSAN Pack [facility] LAB POST ORIF RIGHT INTRA- ARTICULAR DISTAL HUMERUS FRA [id number] 09/01/2014 16:22:00 2014 23:59:59 CLS Outpatient DEEPIKA CASTAÑEDA DO [facility] QUICK LEFT FOOT PAIN [id number] 12/29/2016 11:15:00 PEN Preadmit NEERU CABAN DO [facility] ENDO CONSTIPATION HISTORY OF COLON POLYPS ANEMIA
--- NOTE | 2016-12-29 15:07 | OPERATIVE REPORT ---
DATE OF SERVICE: PREOPERATIVE DIAGNOSES: Family history of colon cancer, constipation, history of polyps. POSTOPERATIVE DIAGNOSIS: Normal colon. PROCEDURE: Colonoscopy. ANESTHESIA: Per DIVISION ENGINEER. ESTIMATED BLOOD LOSS: None. COMPLICATIONS: None. INDICATIONS: The patient is a 66-year-old female with family history of colon cancer and history of polyps. She has some chronic constipation issues. She understands risks and benefits of procedure and wished to proceed with procedure. Consent was signed in the chart. DESCRIPTION OF PROCEDURE: The patient was taken to the endoscopy suite, placed in left lateral recumbent position. Timeout was performed. Digital rectal exam was performed and there were no palpable polyps, mass or ulcerations. The scope was inserted in the rectum and advanced all the way to the cecum with minimal difficulty. Prep was adequate. Scope was slowly retracted back. There were no polyps, mass or ulcerations within the cecum, ascending, transverse, descending and sigmoid colon. Once in the rectum, scope was also retroflexed noting no other pathology. The patient tolerated procedure well without any complications. She was taken to recovery room in stable condition. RECOMMENDATIONS: I would recommend a trial of high fiber diet to see if this continue to help with constipation. She will need repeat colonoscopy in 5 years due to family history of colon cancer and history of polyps. If she has any problems prior to that, she should be reevaluated at that time. Job ID: [id number] DocumentID: [id number] Dictated Date: 12/29/2016 10:59:39 Industrial Economics Teacher Date: 12/29/2016 12:55:45 Dictated By: NEERU CABAN DO
== END | disposition home or self-care (01) ==
LOC: ENDO 09:14
PROVIDERS: ATTEND Surgery
DX: K59.09 Other constipation (principal); Z86.010 Personal history of colon polyps; Z80.0 Family history of malignant neoplasm of digestive organs; I10 Essential (primary) hypertension; E11.9 Type 2 diabetes mellitus without complications; J45.909 Unspecified asthma, uncomplicated; F32.9 Major depressive disorder, single episode, unspecified; F41.9 Anxiety disorder, unspecified; E55.9 Vitamin D deficiency, unspecified; D86.9 Sarcoidosis, unspecified; E66.9 Obesity, unspecified; Z68.30 Body mass index [BMI] 30.0-30.9, adult; Z79.84 Long term (current) use of oral hypoglycemic drugs; Z79.899 Other long term (current) drug therapy

== ENCOUNTER 2017-03-01 10:23 | Outpatient (RCR) | payer MEDICARE, OTHER ==
[~2017-03-01 10:23] MED LIST changes: -LACTATED RINGERS 1,000 ML IV ONE; -LACTATED RINGERS 1,000 ML IV SCH; -MIDAZOLAM 2 MG/2 ML (VERSED) VIAL ONE; -PROPOFOL INJECTION 50 ML IV ONE; -ceFAZolin 2 GM/50 ML NS 50 ML IV ONE; -ceFAZolin 2 GM/50 ML NS 50 ML ONE
== END 2017-05-30 | disposition home or self-care (01) ==
LOC: CARD 10:23
PROVIDERS: ATTEND Surgery
DX: R55 Syncope and collapse (principal)
CPT/HCPCS: 93225; 93226

== ENCOUNTER → 2017-03-25 | Outpatient (CLI) | payer MEDICARE, OTHER | LOC: CARD 08:00 | PROVIDERS: ATTEND Internal Medicine Interventional Cardiology | DX: I71.9 Aortic aneurysm of unspecified site, without rupture (principal) ==

== ENCOUNTER → 2017-03-29 | Outpatient (CLI) | payer MEDICARE, OTHER ==
[~2017-03-29] VITALS: Ht 172.7 cm; Wt 101.6 kg
[~2017-03-29] MED LIST changes: +CATHETER FLUSH 10 ML SYR IV PRN; +REGADENOSON 0.4 MG/5 ML SYR (LEXISCAN) IV ONE
[2017-03-29 09:10] VITALS: BP 148/93
--- NOTE | 2017-03-30 07:02 | STRESS TEST ---
DATE OF SERVICE: 03/29/2017 PHARMACOLOGICAL NUCLEAR STRESS TEST REPORT ATTENDING PHYSICIAN: Dr. Martha Martinez. PRIMARY PHYSICIAN: Maryan Palmer MD. DIAGNOSIS: Paroxysmal atrial fibrillation. PROCEDURE DETAILS: The patient was brought to the stress lab after informed consent was taken. Lexiscan was given according to the protocol. IV Lexiscan 0.4 mg was given. Low-grade exercise was performed. Baseline EKG shows sinus rhythm at 78 BPM with blood pressure of 135/83 mmHg. Maximum heart rate was 114 BPM, and blood pressure was 168/120 mmHg. The patient did not have any chest pain, ST deviation or arrhythmias noted during the Lexiscan infusion. Myoview 10.85 mCi were given for rest imaging and 30.0 mCi Myoview were given for stress imaging. TID was 1. Ejection fraction 50%. No significant stress or rest perfusion defect was noted. Normal wall motion. IMPRESSION AND CONCLUSION: 1. Pharmacological stress test was negative for ischemia. 2. No perfusion defect on rest or stress imaging. 3. Normal left ventricular function with no wall motion abnormalities. Job ID: [id number] DocumentID: [id number] Dictated Date: 03/29/2017 15:08:56 Telegraph Office Manager Date: 03/29/2017 18:30:29 Dictated By: NATALY MARTINEZ MD
== END ==
LOC: CARD 07:07
PROVIDERS: ATTEND Internal Medicine Interventional Cardiology
DX: I48.0 Paroxysmal atrial fibrillation (principal); I47.1 Supraventricular tachycardia; I10 Essential (primary) hypertension; E11.9 Type 2 diabetes mellitus without complications
CPT/HCPCS: 78452; 93017

== ENCOUNTER 2017-04-16 08:30 | Outpatient (RCR) | payer MEDICARE, OTHER ==
[~2017-04-16 08:30] MED LIST changes: -CATHETER FLUSH 10 ML SYR IV PRN; -REGADENOSON 0.4 MG/5 ML SYR (LEXISCAN) IV ONE
== END 2017-06-21 | disposition home or self-care (01) ==
LOC: CARD 08:30
PROVIDERS: ATTEND Internal Medicine Interventional Cardiology
DX: I48.0 Paroxysmal atrial fibrillation (principal); I47.1 Supraventricular tachycardia; R00.2 Palpitations
CPT/HCPCS: 93270

== ENCOUNTER → 2017-04-20 | Outpatient (CLI) | payer MEDICARE, OTHER | LOC: CARD 13:39 | PROVIDERS: ATTEND Internal Medicine Interventional Cardiology | DX: I10 Essential (primary) hypertension (principal); I48.0 Paroxysmal atrial fibrillation; I47.1 Supraventricular tachycardia; R00.2 Palpitations | CPT/HCPCS: 93306 ==

== ENCOUNTER 2017-04-22 20:07 | Outpatient (CLI) | payer MEDICARE, OTHER | END 2017-04-23 06:26 | disposition home or self-care (01) | LOC: SLEEP 20:07 | PROVIDERS: ATTEND Family Medicine | DX: G47.9 Sleep disorder, unspecified (principal); I48.0 Paroxysmal atrial fibrillation; R06.83 Snoring; R29.6 Repeated falls | CPT/HCPCS: 95810 ==

== ENCOUNTER 2017-04-28 08:53 | Day surgery (SDC) | payer MEDICARE, OTHER ==
[~2017-04-28] VITALS: Ht 172.7 cm; Wt 97.1 kg
--- OUTSIDE RECORDS SUMMARY | 2017-04-28 08:58 | XMS REPORT | Clinical Summary ---
Author Author [facility] Organization [facility] Address Unknown Phone Unavailable Support Name Relationship Address Phone , Fermin Franklin [address] [place] [address] Allergies Active Allergy Reactions Severity Noted Date Comments Amoxicillin Trihydrate soreness of tongue AUGMENTIN [...] take 1 capsule 15 0 02/18/20 Active 36863 UNITS capsule ([id number]) by ORAL 11 route every week for [...] mention of complication, not stated as uncontrolled (HCC) Unspecified episodic mood disorder (HCC) Unspecified essential hypertension Immunizations Name Dates Previously Given Next Due Influenza IIV3 PFree 02/17/2011, 03/12/2010, 03/06/2008, 03/07/2007, 03/11/2006, 03/18/2005 Family History Medical History Relation Name Comments Other Other Mother - arthritis,Parkinson's disease; Thyroid disease,CHF Other Other Father - Cause of :Cancer, Colon Relation Name Status Comments Father (Age 51) Mother Alive Other Other Social History Tobacco Use Types Packs/Day Years Used Date Never Smoker Sex Assigned at Date Recorded Not on file Last Filed Vital Signs Vital Sign Reading Time Taken Blood Pressure 130/74 03/17/2011 3:53 PM WATER QUALITY MANAGER Pulse - - Temperature - - Respiratory Rate - - Oxygen Saturation - - Inhaled Oxygen - - Concentration Weight 115.9 kg (255 lb 8 oz) 03/17/2011 3:53 PM WATER QUALITY MANAGER Height 172.1 cm (5' 7.75") 05/05/2010 9:16 AM WATER QUALITY MANAGER Body Mass Index 39.14 03/17/2011 3:53 PM WATER QUALITY MANAGER Plan of Treatment Health Maintenance Due Date Last Done Comments DTaP,Tdap,and Td Vaccines 07/28/1967 (1 - Tdap) Ophthalmology Exam 10/03/2007 10/02/2006 Zoster Vaccine (#1) 2008 Diabetic Foot Exam 04/04/2009 04/04/2008 CERVICAL CANCER SCREENING 05/05/2011 05/05/2010 Pneumo-Adult (1 of 2 - 2013 PCV13) Breast Cancer 11/28/2016 11/28/2014, 11/27/2013, 10/27/2012, Screening-Mammogram Additional history exists Influenza Vaccine (#1) 2017 02/17/2011, 03/12/2010, 03/06/2008, Additional history exists Colon Cancer Screening 10/11/2018 10/11/2008 Hepatitis C Screening Completed 01/18/2009 Results Not on filefrom Last 3 Months
--- OUTSIDE RECORDS SUMMARY | 2017-04-28 08:58 | XMS REPORT ---
Author Author SAMUEL BRADY Organization [facility] Address [address] [place] [address] Care Team Providers Care Automobile Repossessor Name Role Phone SAMUEL BRADY Unavailable PROBLEMS Type Condition ICD9-CM Code [id number] Code Onset Dates Condition Status SNOMED Code Problem Comminuted right humeral fracture S42.351A Active 17953005 Problem Mild persistent asthma without complication J45.30 Active 176988638 Problem Frequent falls R29.6 Active 798028879 Problem Stage 3 chronic kidney disease N18.3 Active 689304101 Problem History of sarcoidosis Z86.2 Active 582186043 Problem Vitamin D deficiency E55.9 Active 24517988 Problem Gastroesophageal reflux disease without esophagitis K21.9 Active 264945892 Problem Stress incontinence N39.3 Active 10084749 Problem Urge incontinence N39.41 Active 45008034 Problem Unilateral femoral hernia, without obstruction or gangrene, not specified as recurrent K41.90 Active 28492051 Problem Generalized anxiety disorder F41.1 Active 144201417 Problem 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 278518192 Problem Hyperlipidemia associated with type 2 diabetes mellitus E11.69 Active 331912929073 Problem Major depressive disorder, recurrent, in partial remission F33.41 Active 476526607 Problem Left foot drop M21.372 Active 6720727 Problem Type 2 diabetes mellitus with hyperglycemia E11.65 Active 30608705 Problem Essential hypertension I10 Active 85071752 ALLERGIES No Known Allergies SOCIAL HISTORY Never Assessed PLAN OF CARE Activity Details Follow Up prn Reason: VITAL SIGNS Height 68 in 2016-09-28 Weight 213.4 lbs 2016-09-28 Temperature 98.3 degrees Fahrenheit 2016-09-28 Heart Rate 80 bpm 2016-09-28 Respiratory Rate 20 2016-09-28 BMI 32.44 kg/m2 2016-09-28 Blood pressure systolic 126 mmHg 2016-09-28 Blood pressure diastolic 70 mmHg 2016-09-28 MEDICATIONS Medication Instructions Dosage Frequency Start Date End Date Duration Status Jasmin Allergy 180 MG Orally Once a day 1 tablet as needed 24h 30 days Active Prilosec OTC 20 mg Orally Once a day 1 tablet 24h 17 Mar, 2016 30 day(s ) Active Triamterene-HCTZ 37.5-25 MG Orally Once a day 1 tablet in the morning 24h 90 days Active Senna-S 8.6-50 MG Orally every other day 2 tablets Active Bactrim DS 800-160 MG Orally Twice a day 1 tablet 12h September,September 3 days Active Dulera 100-5 MCG/ACT Inhalation Twice a day 2 puffs 12h Apr, Active Metformin HCl 1000 MG Orally Once a day in the morning 1 tablet with meals Dec, 90 days Active Zocor 10 MG Orally Once a day 1 tablet in the evening 24h 90 Active Janumet 50-1000 MG Orally Once a day 1 tablet with meals 24h 90 days Active Cymbalta 60 MG Orally Once a day 1 capsule 24h 90 days Active Zoloft 50 MG Orally Once a day 1 tablet 24h 90 days Active RESULTS No Results PROCEDURES Procedure Date Ordered Result Body Site FORMERLY [facility] VISIT ESTABLISHED PATIENT September 28, 2016 IMMUNIZATIONS No Known Immunizations MEDICAL (GENERAL) HISTORY Type Description Date Medical History hyperlipidemia Medical History type 2 diabetes mellitus Medical History psychiatric disorders depression Medical History left foot drop Medical History stage 3 chronic kidney failure Medical History asthma Surgical History partial hysterectomy 1984 Surgical History tonsillectomy Surgical History orthopeadic surgery r total knee replacement 05/2012 Surgical History Right arm fracture repair 03/31/15 Surgical History laser eye repair for narrow angle glaucoma 04/20/15 Hospitalization History right arm fracture 03/29/15-04/03/15
--- OUTSIDE RECORDS SUMMARY | 2017-04-28 08:59 | XMS REPORT ---
Author Author ELEANOR BAM Organization [facility] Address [address] [place] [address] Care Team Providers Care Teacher Early Childhood Development Name Role Phone ELEANOR BAM Unavailable PROBLEMS Type Condition ICD9-CM Code [id number] Code Onset Dates Condition Status SNOMED Code Problem Comminuted right humeral fracture S42.351A Active 95276048 Problem Mild persistent asthma without complication J45.30 Active 289009900 Problem Frequent falls R29.6 Active 638622023 Problem Stage 3 chronic kidney disease N18.3 Active 314877654 Problem History of sarcoidosis Z86.2 Active 402548450 Problem Vitamin D deficiency E55.9 Active 99227623 Problem Gastroesophageal reflux disease without esophagitis K21.9 Active 469110537 Problem Stress incontinence N39.3 Active 90708944 Problem Urge incontinence N39.41 Active 92768534 Problem Unilateral femoral hernia, without obstruction or gangrene, not specified as recurrent K41.90 Active 80471372 Problem Generalized anxiety disorder F41.1 Active 393808792 Problem 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 053943099 Problem Hyperlipidemia associated with type 2 diabetes mellitus E11.69 Active 827586334680 Problem Major depressive disorder, recurrent, in partial remission F33.41 Active 815526430 Problem Left foot drop M21.372 Active 9011461 Problem Type 2 diabetes mellitus with hyperglycemia E11.65 Active 44565916 Problem Essential hypertension I10 Active 64359987 ALLERGIES No Known Allergies SOCIAL HISTORY Never Assessed PLAN OF CARE Activity Details Follow Up prn Reason: VITAL SIGNS Height 5'8" in 2016-07-24 Weight 216.7 lbs 2016-07-24 Temperature 98.1 degrees Fahrenheit 2016-07-24 Heart Rate 88 bpm 2016-07-24 Respiratory Rate 20 2016-07-24 BMI 32.95 kg/m2 2016-07-24 Blood pressure systolic 142 mmHg 2016-07-24 Blood pressure diastolic 90 mmHg 2016-07-24 MEDICATIONS Medication Instructions Dosage Frequency Start Date End Date Duration Status Cymbalta 60 MG Orally Once a day 1 capsule 24h 90 days Active Ciprofloxacin HCl 500 mg Orally Twice a day 1 tablet 12h Jul, Jul, 07 days Active Dulera 100-5 MCG/ACT Inhalation Twice a day 2 puffs 12h 20 Apr, 2016 Active Triamterene-HCTZ 37.5-25 MG Orally Once a day 1 tablet in the morning 24h 90 days Active Janumet 50-1000 MG Orally Once a day 1 tablet with meals 24h 90 days Active Jasmin Allergy 180 MG Orally Once a day 1 tablet as needed 24h 30 days Active Zocor 10 MG Orally Once a day 1 tablet in the evening 24h 90 Active Zoloft 50 MG Orally Once a day 1 tablet 24h 90 days Active Mobic 7.5 MG Orally Once a day 1 tablet 24h Active Prilosec OTC 20 mg Orally Once a day 1 tablet 24h Mar, 30 day(s ) Active Senna-S 8.6-50 MG Orally every other day 2 tablets Active Metformin HCl 1000 MG Orally Once a day in the morning 1 tablet with meals Dec, 90 days Active RESULTS Name Result Date Reference Range UA LONG DIP (IN HOUSE) 2016-07-24 Lot # [id number] Exp date 06/09/17 Clarity clear Color yellow Odor none GLU 1+ JAYLYN negative KET trace SG 1.015 BLO negative pH 5.5 Protein negative URO 0.2 NIT negative SARIAH trace Lot # Exp date CULTURE, URINE 2016-07-24 Urine Culture, Routine Final report Result 1 PROCEDURES Procedure Date Ordered Result Body Site URINALYSIS, AUTO, W/O SCOPE July 24, 2016 LAB NOT BILLED BY [facility] July 24, 2016 [facility] VISIT ESTABLISHED PATIENT July 24, 2016 IMMUNIZATIONS No Known Immunizations MEDICAL (GENERAL) HISTORY Type Description Date Medical History hyperlipidemia Medical History type 2 diabetes mellitus Medical History psychiatric disorders depression Medical History left foot drop Medical History stage 3 chronic kidney failure Medical History asthma Surgical History partial hysterectomy 1985 Surgical History tonsillectomy Surgical History orthopeadic surgery r total knee replacement 05/2012 Surgical History Right arm fracture repair 03/31/15 Surgical History laser eye repair for narrow angle glaucoma 04/20/15 Hospitalization History right arm fracture 03/29/15-04/03/15
--- OUTSIDE RECORDS SUMMARY | 2017-04-28 09:01 | XMS REPORT ---
Author Author PRISCA WINTER Organization [facility] Address [address] [place] [address] Care Team Providers Care Flame Hardener Name Role Phone PRISCA WINTER Unavailable PROBLEMS Type Condition ICD9-CM Code [id number] Code Onset Dates Condition Status SNOMED Code Problem Comminuted right humeral fracture S42.351A Active 94509413 Problem Mild persistent asthma without complication J45.30 Active 661520937 Problem Frequent falls R29.6 Active 150597412 Problem Stage 3 chronic kidney disease N18.3 Active 354372731 Problem History of sarcoidosis Z86.2 Active 673287211 Problem Vitamin D deficiency E55.9 Active 84188083 Problem Gastroesophageal reflux disease without esophagitis K21.9 Active 703764878 Problem Stress incontinence N39.3 Active 99867250 Problem Urge incontinence N39.41 Active 27044854 Problem Unilateral femoral hernia, without obstruction or gangrene, not specified as recurrent K41.90 Active 74730623 Problem Generalized anxiety disorder F41.1 Active 656211605 Problem 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 066748360 Problem Hyperlipidemia associated with type 2 diabetes mellitus E11.69 Active 002201395313 Problem Major depressive disorder, recurrent, in partial remission F33.41 Active 691383225 Problem Left foot drop M21.372 Active 5522793 Problem Type 2 diabetes mellitus with hyperglycemia E11.65 Active 83095059 Problem Essential hypertension I10 Active 39792888 ALLERGIES No Information SOCIAL HISTORY Never Assessed PLAN OF CARE VITAL SIGNS MEDICATIONS No Known Medications RESULTS Name Result Date Reference Range [facility] 2016-09-16 Glucose, Serum 204 65-99 BUN 24 8-27 Creatinine, Serum 1.04 0.57-1.00 eGFR If NonAfricn Am 55 >59 eGFR If Africn Am 64 >59 BUN/Creatinine Ratio 23 12-28 Sodium, Serum 142 134-144 Potassium, Serum 4.1 3.5-5.2 Chloride, Serum 102 96-106 Carbon Dioxide, Total 20 18-29 Calcium, Serum 9.0 8.7-10.3 Protein, Total, Serum 6.9 6.0-8.5 Albumin, Serum 4.2 3.6-4.8 Globulin, Total 2.7 1.5-4.5 A/G Ratio 1.6 1.2-2.2 Bilirubin, Total 0.4 0.0-1.2 Alkaline Phosphatase, S 81 39-117 AST (SGOT) 18 0-40 ALT (SGPT) 15 0-32 PROCEDURES Procedure Date Ordered Result Body Site LAB NOT BILLED BY [facility] September 16, 2016 VENIPUNCT, ROUTINE* September 16, 2016 IMMUNIZATIONS No Known Immunizations MEDICAL (GENERAL) [...]
--- OUTSIDE RECORDS SUMMARY | 2017-04-28 09:02 | XMS REPORT ---
Author Author MOY PRISCA Organization [facility] Address [address] [place] [address] Care Team Providers Care Timber Hand Name Role Phone PRISCA WINTER Unavailable PROBLEMS Type Condition ICD9-CM Code [id number]-BM Code Onset Dates Condition Status SNOMED Code Problem Comminuted right humeral fracture S42.351A Active 47538253 Problem Mild persistent asthma without complication J45.30 Active 773771335 Problem Frequent falls R29.6 Active 449932028 Problem Stage 3 chronic kidney disease N18.3 Active 681003808 Problem History of sarcoidosis Z86.2 Active 751011535 Problem Vitamin D deficiency E55.9 Active 09803502 Problem Gastroesophageal reflux disease without esophagitis K21.9 Active 538361971 Problem Stress incontinence N39.3 Active 26779757 Problem Urge incontinence N39.41 Active 05830418 Problem Unilateral femoral hernia, without obstruction or gangrene, not specified as recurrent K41.90 Active 83509021 Problem Generalized anxiety disorder F41.1 Active 666681545 Problem 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 639754589 Problem Hyperlipidemia associated with type 2 diabetes mellitus E11.69 Active 122836655255 Problem Major depressive disorder, recurrent, in partial remission F33.41 Active 859203582 Problem Left foot drop M21.372 Active 0921510 Problem Type 2 diabetes mellitus with hyperglycemia E11.65 Active 15847279 Problem Essential hypertension I10 Active 80456854 ALLERGIES Unknown Allergies SOCIAL HISTORY No smoking Hx information available PLAN OF CARE VITAL SIGNS MEDICATIONS Unknown Medications RESULTS No Results PROCEDURES Procedure Date Ordered Related Diagnosis Body Site PULMONARY FUNCTION TEST 2016-06-03 Mild obstructive and restrictive defect and mild decrease in diffusing capacity. IMMUNIZATIONS No Known Immunizations
--- OUTSIDE RECORDS SUMMARY | 2017-04-28 09:03 | XMS REPORT ---
Author Author PRISCA WINTER Organization [facility] [place] [facility] Address [address] [place] [address] Care Team Providers Care Book Agent Name Role Phone PRISCA WINTER Unavailable PROBLEMS Type Condition ICD9-CM Code [id number] Code Onset Dates Condition Status SNOMED Code Problem Comminuted right humeral fracture S42.351A Active 65544656 Problem Mild persistent asthma without complication J45.30 Active 111103445 Problem Frequent falls R29.6 Active 838674417 Problem Stage 3 chronic kidney disease N18.3 Active 393169327 Problem History of sarcoidosis Z86.2 Active 197002573 Problem Vitamin D deficiency E55.9 Active 31398439 Problem Gastroesophageal reflux disease without esophagitis K21.9 Active 909586816 Problem Stress incontinence N39.3 Active 70583056 Problem Urge incontinence N39.41 Active 03938002 Problem Unilateral femoral hernia, without obstruction or gangrene, not specified as recurrent K41.90 Active 98780180 Problem Generalized anxiety disorder F41.1 Active 165819134 Problem 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 674267377 Problem Hyperlipidemia associated with type 2 diabetes mellitus E11.69 Active 212419931987 Problem Major depressive disorder, recurrent, in partial remission F33.41 Active 493522250 Problem Left foot drop M21.372 Active 2695260 Problem Type 2 diabetes mellitus with hyperglycemia E11.65 Active 93366438 Problem Essential hypertension I10 Active 94962852 ALLERGIES No Information SOCIAL HISTORY Never Assessed PLAN OF CARE VITAL SIGNS MEDICATIONS Unknown Medications RESULTS Name Result Date Reference Range Mammogram, Bilateral Screening 2016-07-07 PROCEDURES No Known procedures IMMUNIZATIONS No Known Immunizations MEDICAL (GENERAL) HISTORY [...]
--- OUTSIDE RECORDS SUMMARY | 2017-04-28 09:03 | XMS REPORT ---
Author Author PRISCA WINTER Organization [facility] Address [address] [place] [address] Care Team Providers Care Oracle Erp Developer Name Role Phone PRISCA WINTER Unavailable PROBLEMS Type Condition ICD9-CM Code HRJ09-LC Code Onset Dates Condition Status SNOMED Code Problem Comminuted right humeral fracture S42.351A Active 60256196 Problem Mild persistent asthma without complication J45.30 Active 403424163 Problem Frequent falls R29.6 Active 845846340 Problem Stage 3 chronic kidney disease N18.3 Active 723447286 Problem History of sarcoidosis Z86.2 Active 069012103 Problem Vitamin D deficiency E55.9 Active 46803044 Problem Gastroesophageal reflux disease without esophagitis K21.9 Active 995378084 Problem Stress incontinence N39.3 Active 07172826 Problem Urge incontinence N39.41 Active 58238166 Problem Unilateral femoral hernia, without obstruction or gangrene, not specified as recurrent K41.90 Active 01098357 Problem Generalized anxiety disorder F41.1 Active 493991993 Problem 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 640150794 Problem Hyperlipidemia associated with type 2 diabetes mellitus E11.69 Active 216994099381 Problem Major depressive disorder, recurrent, in partial remission F33.41 Active 788800267 Problem Left foot drop M21.372 Active 6483972 Problem Type 2 diabetes mellitus with hyperglycemia E11.65 Active 76591100 Problem Essential hypertension I10 Active 21321529 ALLERGIES No Information SOCIAL HISTORY Never Assessed [...]
--- OUTSIDE RECORDS SUMMARY | 2017-04-28 09:05 | XMS REPORT | Continuity of Care Document ---
Author Author [facility] Address Unknown Phone Unavailable Allergies Active Description Code Type Severity Reaction Onset Reported/Identified Relationship to Patient Clinical Status Yes No Known Allergies No Known Allergies Drug Allergy Unknown N/A 2014 Yes No Known Drug Allergies [id number] Drug Allergy Unknown N/A 12/14/2016 Medications There is no data. Problems Date Dx Coded Attending Type Code Diagnosis Diagnosed By 04/08/1133 PRISCA WINTER MD Ot Z91.81 HISTORY OF FALLING 04/08/1320 SUSAN MCKENZIE MD, Ot S42.491D OT DISP FX OF LOWER END R HUMER, SUBS F 04/08/1320 SUSAN MCKENZIE MD Ot W19.XXXD UNSPECIFIED FALL, SUBSEQUENT ENCOUNTER 04/08/1320 SUSAN MCKENZIE MD, Ot Y92.[address] [facility] NON-[facility] (PRIVATE 04/08/1320 SUSAN MCKENZIE MD, Ot Y99.8 OTHER EXTERNAL CAUSE STATUS 04/13/2013 CRYSTAL LINK DO K V06.1 TDAP DX 04/13/2013 PRISCA WINTER MD V06.1 TDAP DX 08/10/2014 PRISCA WINTER MD N 250.00 DIABETES II CONTROLLED (UNCOMPLICATED) 08/10/2014 PRISCA WINTER MD 272.4 HYPERLIPIDEMIA 08/10/2014 PRISCA WINTER MD 296.20 MAJOR DEPRESSIVE AFFECTIVE DISORDER SINGLE EPISODE UNSPECIFIED DEGREE 08/10/2014 PRISCA WINTER MD N 553.00 UNILATERAL OR UNSPECIFIED FEMORAL HERNIA WITHOUT OBSTRUCTION OF GANGRENE 08/10/2014 PRISCA WINTER MD 796.2 ELEVATED BLOOD PRESSURE READING WITHOUT DIAGNOSIS OF HYPERTENSION 03/30/2015 Susan Mckenzie MD E11.9 TYPE 2 DIABETES MELLITUS WITHOUT COMPLICATIONS 03/30/2015 Susan Mckenzie MD E78.5 HYPERLIPIDEMIA, UNSPECIFIED 03/30/2015 Susan Mckenzie MD F41.8 OTHER SPECIFIED ANXIETY DISORDERS 03/30/2015 Susan Mckenzie MD G62.9 POLYNEUROPATHY, UNSPECIFIED 03/30/2015 Susan Mckenzie MD J45.909 UNSPECIFIED ASTHMA, UNCOMPLICATED 03/30/2015 Susan Mckenzie MD M79.601 PAIN IN RIGHT ARM 03/30/2015 Susan Mckenzie MD N28.9 DISORDER OF KIDNEY AND URETER, UNSPECIFIED 03/30/2015 Susan Mckenzie MD N39.3 STRESS INCONTINENCE (FEMALE) (MALE) 03/30/2015 Susan Mckenzie MD S42.491A OTH DISP FX OF LOWER END OF RIGHT HUMERUS, INIT FO 03/30/2015 Susan Mckenzie MD W01.0XXA FALL SAME LEV FROM SLIP/TRIP W/O STRIKE AGAINST OB 03/30/2015 Susan Mckenzie MD Z79.01 RADIO TIME BUYER (CURRENT) USE OF ANTICOAGULANTS 03/30/2015 Susan Mckenzie MD Z79.4 RADIO TIME BUYER (CURRENT) USE OF INSULIN 03/30/2015 Susan Mckenzie MD Z86.718 PERSONAL HISTORY OF OTHER VENOUS THROMBOSIS AND EM 06/27/2015 OTHER, UNLISTED Ot S42.491D 06/27/2015 OTHER, UNLISTED Ot W19.XXXD 06/27/2015 OTHER, UNLISTED Ot Y92.009 06/27/2015 OTHER, UNLISTED Ot Y99.8 07/05/2015 OTHER, UNLISTED Ot S42.491D 07/05/2015 OTHER, UNLISTED Ot W19.XXXD 07/05/2015 OTHER, UNLISTED Ot Y92.009 07/05/2015 OTHER, UNLISTED Ot Y99.8 07/18/2015 SUSAN MCKENZIE MD Ot S42.491D 07/18/2015 SUSAN MCKENZIE MD Ot W19.XXXD 07/18/2015 SUSAN MCKENZIE MD Ot Y99.8 08/05/2015 OTHER, UNLISTED Ot S42.491D 08/05/2015 OTHER, UNLISTED Ot W19.XXXD 08/05/2015 OTHER, UNLISTED Ot Y92.009 08/05/2015 OTHER, UNLISTED Ot Y99.8 08/13/2015 OTHER, UNLISTED Ot S42.491D OTH DISP FX OF LOWER END R HUMER, SUBS F 08/13/2015 OTHER, UNLISTED Ot W19.XXXD UNSPECIFIED FALL, SUBSEQUENT ENCOUNTER 08/13/2015 OTHER, UNLISTED Ot Y92.[address] IN [facility] NON-INSTITUT (PRIVATE 08/13/2015 OTHER, UNLISTED Ot Y99.8 OTHER EXTERNAL CAUSE STATUS 08/15/2015 OTHER, UNLISTED Ot S42.491D 08/15/2015 OTHER, UNLISTED Ot W19.XXXD 08/15/2015 OTHER, UNLISTED Ot Y92.009 08/15/2015 OTHER, UNLISTED Ot Y99.8 09/05/2015 JONAH CALIXTO, SUSAN Pack Ot S42.491D OTH DISP FX OF LOWER END R HUMER, SUBS F 09/05/2015 SUSAN MCKENZIE MD Ot W19.XXXD UNSPECIFIED FALL, SUBSEQUENT ENCOUNTER 09/05/2015 SUSAN MCKENZIE MD Ot Y99.8 OTHER EXTERNAL CAUSE STATUS 09/05/2015 SUSAN MCKENZIE MD Ot S42.491D OTH DISP FX OF LOWER END R HUMER, SUBS F 09/05/2015 JONAH CALIXTO, SUSAN Pack Ot W19.XXXD UNSPECIFIED FALL, SUBSEQUENT ENCOUNTER 09/05/2015 SUSAN MCKENZIE MD Ot Y92.[address] IN [facility] NON-INSTITUT (PRIVATE 09/05/2015 SUSAN MCKENZIE MD Ot Y99.8 OTHER EXTERNAL CAUSE STATUS 09/09/2015 PRISCA WINTER MD Ot R07.81 PLEURODYNIA 09/11/2015 PRISCA WINTER MD Ot R07.81 PLEURODYNIA 09/25/2015 PRISCA WINTER MD Ot Z91.81 HISTORY OF FALLING 09/26/2015 PRISCA WINTER MD Ot R07.81 PLEURODYNIA 09/30/2015 PRISCA WINTER MD Ot R07.81 PLEURODYNIA 10/08/2015 SUSAN MCKENZIE MD Ot S42.491D OTH DISP FX OF LOWER END R HUMER, SUBS F 10/08/2015 JONAH CALIXTO, SUSAN Pack Ot W19.XXXD UNSPECIFIED FALL, SUBSEQUENT ENCOUNTER 10/08/2015 SUSAN MCKENZIE MD Ot Y92.[address] IN [facility] NON-INSTITUT (PRIVATE 10/08/2015 SUSAN MCKENZIE MD Ot Y99.8 OTHER EXTERNAL CAUSE STATUS 10/09/2015 SUSAN MCKENZIE MD Ot S42.491D OTH DISP FX OF LOWER END R HUMER, SUBS F 10/09/2015 SUSAN MCKENZIE MD Ot W19.XXXD UNSPECIFIED FALL, SUBSEQUENT ENCOUNTER 10/09/2015 SUSAN MCKENZIE MD Ot Y92.[address] IN [facility] NON-INSTITUT (PRIVATE 10/09/2015 SUSAN MCKENZIE MD Ot Y99.8 OTHER EXTERNAL CAUSE STATUS 10/10/2015 SUSAN MCKENZIE MD Ot S42.491D OTH DISP FX OF LOWER END R HUMER, SUBS F 10/10/2015 SUSAN MCKENZIE MD Ot W19.XXXD UNSPECIFIED FALL, SUBSEQUENT ENCOUNTER 10/10/2015 SUSAN MCKENZIE MD Ot Y92.[address] IN [facility] NON-INSTITUT (PRIVATE 10/10/2015 SUSAN MCKENZIE MD Ot Y99.8 OTHER EXTERNAL CAUSE STATUS 10/10/2015 SUSAN MCKENZIE MD Ot S42.491D OTH DISP FX OF LOWER END R HUMER, SUBS F 10/10/2015 SUSAN MCKENZIE MD Ot W19.XXXD UNSPECIFIED FALL, SUBSEQUENT ENCOUNTER 10/10/2015 SUSAN MCKENZIE MD Ot Y92.[address] IN [facility] NON-INSTITUT (PRIVATE 10/10/2015 SUSAN MCKENZIE MD Ot Y99.8 OTHER EXTERNAL CAUSE STATUS 11/02/2015 SUSAN MCKENZIE MD Ot S42.491D OTH DISP FX OF LOWER END R HUMER, SUBS F 11/02/2015 SUSAN MCKENZIE MD Ot W19.XXXD UNSPECIFIED FALL, SUBSEQUENT ENCOUNTER 11/02/2015 SUSAN MCKENZIE MD Ot Y92.[address] IN [facility] NON-INSTITUT (PRIVATE 11/02/2015 SUSAN MCKENZIE MD Ot Y99.8 OTHER EXTERNAL CAUSE STATUS 11/05/2015 SUSAN MCKENZIE MD Ot S42.491D OTH DISP FX OF LOWER END R HUMER, SUBS F 11/05/2015 SUSAN MCKENZIE MD Ot W19.XXXD UNSPECIFIED FALL, SUBSEQUENT ENCOUNTER 11/05/2015 SUSAN MCKENZIE MD Ot Y92.[address] IN [facility] NON-INSTITUT (PRIVATE 11/05/2015 SUSAN MCKENZIE MD Ot Y99.8 OTHER EXTERNAL CAUSE STATUS 12/12/2015 SUSAN MCKENZIE MD Ot S42.491D OTH DISP FX OF LOWER END R HUMER, SUBS F 12/12/2015 SUSAN MCKENZIE MD Ot W19.XXXD UNSPECIFIED FALL, SUBSEQUENT ENCOUNTER 12/12/2015 SUSAN MCKENZIE MD Ot Y92.[address] IN [facility] NON-INSTITUT (PRIVATE 12/12/2015 SUSAN MCKENZIE MD Ot Y99.8 OTHER EXTERNAL CAUSE STATUS 02/11/2016 SUSAN MCKENZIE MD Ot S42.491D OTH DISP FX OF LOWER END R HUMER, SUBS F 02/11/2016 SUSAN MCKENZIE MD Ot W19.XXXD UNSPECIFIED FALL, SUBSEQUENT ENCOUNTER 02/11/2016 SUSAN MCKENZIE MD Ot Y99.8 OTHER EXTERNAL CAUSE STATUS 02/11/2016 PRISCA WINTER MD Ot R07.81 PLEURODYNIA 03/23/2016 OTHER, UNLISTED Ot 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, RIGHT ELBOW 03/23/2016 OTHER, UNLISTED Ot S42.491D OTH DISP FX OF LOWER END R HUMER, SUBS F 03/30/2016 SUSAN MCKENZIE MD Ot S42.491D OTH DISP FX OF LOWER END R HUMER, SUBS F 03/30/2016 SUSAN MCKENZIE MD Ot W19.XXXD UNSPECIFIED FALL, SUBSEQUENT ENCOUNTER 03/30/2016 SUSAN MCKENZIE MD Ot Y99.8 OTHER EXTERNAL CAUSE STATUS 03/30/2016 PRISCA WINTER MD Ot R07.81 PLEURODYNIA 03/30/2016 OTHER, UNLISTED Ot [...] J45.909 UNSPECIFIED ASTHMA, UNCOMPLICATED 07/13/2016 LUIS CARLOS DO, MIKE F Ot M94.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 CHONDROMALACIA, LEFT KNEE 07/16/2016 LUIS CARLOS DO, MIKE F Ot M94.262 CHONDROMALACIA, LEFT KNEE 07/17/2016 LUIS CARLOS DO, MIKE F Ot M94.262 CHONDROMALACIA, LEFT KNEE 07/28/2016 MOY CALIXTO, PRISCA Yoder Ot Z12.31 ENCNTR SCREEN MAMMOGRAM FOR MALIGNANT NE 07/30/2016 EMERY GARDUNO DO Ot D86.9 SARCOIDOSIS, UNSPECIFIED 07/30/2016 EMERY GARDUNO DO Ot J45.909 UNSPECIFIED ASTHMA, UNCOMPLICATED 08/04/2016 LUIS CARLOS DO, MIKE F Ot M94.262 CHONDROMALACIA, LEFT KNEE 08/04/2016 EMERY GARDUNO DO Ot D86.9 SARCOIDOSIS, UNSPECIFIED 08/04/2016 EMERY GARDUNO DO Ot J45.909 UNSPECIFIED ASTHMA, UNCOMPLICATED 08/06/2016 LUIS CARLOS DO, MIKE F Ot M94.262 CHONDROMALACIA, LEFT KNEE 08/11/2016 EMERY GARDUNO DO Ot D86.9 SARCOIDOSIS, UNSPECIFIED 08/11/2016 EMERY GARDUNO DO Ot J45.909 UNSPECIFIED ASTHMA, UNCOMPLICATED 09/30/2016 EMERY GARDUNO DO Ot D86.9 SARCOIDOSIS, UNSPECIFIED 09/30/2016 EMERY GARDUNO DO Ot J45.909 UNSPECIFIED ASTHMA, UNCOMPLICATED 10/07/2016 EMERY GARDUNO DO Ot D86.9 SARCOIDOSIS, UNSPECIFIED 10/07/2016 EMERY GARDUNO DO M Ot J45.909 UNSPECIFIED ASTHMA, UNCOMPLICATED 11/08/2016 EMERY GARDUNO DO Ot D86.9 SARCOIDOSIS, UNSPECIFIED 11/08/2016 EMERY GARDUNO DO M Ot J45.909 UNSPECIFIED ASTHMA, UNCOMPLICATED 11/12/2016 EMERY GARDUNO DO Ot D86.9 SARCOIDOSIS, UNSPECIFIED 11/12/2016 EMERY GARDUNO DO M Ot J45.909 UNSPECIFIED ASTHMA, UNCOMPLICATED 11/12/2016 EMERY GARDUNO DO M Ot D86.9 SARCOIDOSIS, UNSPECIFIED 11/12/2016 EMERY GARDUNO DO M Ot J45.909 UNSPECIFIED ASTHMA, UNCOMPLICATED 11/13/2016 EMERY GARDUNO DO M Ot D86.9 SARCOIDOSIS, UNSPECIFIED 11/13/2016 EMERY GARDUNO DO M Ot J45.909 UNSPECIFIED ASTHMA, UNCOMPLICATED 11/13/2016 EMERY GARDUNO DO Ot D86.9 SARCOIDOSIS, UNSPECIFIED 11/13/2016 EMERY GARDUNO DO M Ot J45.909 UNSPECIFIED ASTHMA, UNCOMPLICATED 11/26/2016 MOY CALIXTO, PRISCA Yoder Ot N18.3 CHRONIC KIDNEY DISEASE, STAGE 3 (MODERAT 11/26/2016 PRISCA WINTER MD Ot N26.1 ATROPHY OF KIDNEY (TERMINAL) 12/04/2016 PRISCA WINTER MD Ot N18.3 CHRONIC KIDNEY DISEASE, STAGE 3 (MODERAT 12/04/2016 PRISCA WINTER MD Ot N26.1 ATROPHY OF KIDNEY (TERMINAL) 12/14/2016 NEERU CABAN DO Ot K59.09 OTHER CONSTIPATION 12/14/2016 NEERU CABAN DO Ot N28.9 DISORDER OF KIDNEY AND URETER, UNSPECIFI 12/14/2016 NEERU CABAN DO Ot Z01.818 ENCOUNTER FOR OTHER PREPROCEDURAL EXAMIN 12/14/2016 NEERU CABAN DO Ot Z86.010 PERSONAL HISTORY OF COLONIC POLYPS 12/23/2016 NEERU CABAN DO Ot D64.9 ANEMIA, UNSPECIFIED 12/23/2016 NEERU CABAN DO Ot K59.00 CONSTIPATION, UNSPECIFIED 12/23/2016 NEERU CABAN DO Ot Z01.818 ENCOUNTER FOR OTHER PREPROCEDURAL EXAMIN 12/23/2016 NEERU CABAN DO Ot Z86.010 PERSONAL HISTORY OF COLONIC POLYPS 12/31/2016 NEERU CABAN DO Ot D86.9 SARCOIDOSIS, UNSPECIFIED 12/31/2016 NEERU CABAN DO Ot E11.9 TYPE 2 DIABETES MELLITUS WITHOUT COMPLIC 12/31/2016 NEERU CABAN DO Ot E55.9 VITAMIN D DEFICIENCY, UNSPECIFIED 12/31/2016 NEERU CABAN DO D Ot E66.9 OBESITY, UNSPECIFIED 12/31/2016 NEERU CABAN DO Ot F32.9 MAJOR DEPRESSIVE DISORDER, SINGLE EPISOD 12/31/2016 NEERU CABAN DO Ot F41.9 ANXIETY DISORDER, UNSPECIFIED 12/31/2016 NEERU CABAN DO Ot I10 ESSENTIAL (PRIMARY) HYPERTENSION 12/31/2016 NEERU CABAN DO Ot J45.909 UNSPECIFIED ASTHMA, UNCOMPLICATED 12/31/2016 NEERU CABAN DO Ot K59.09 OTHER CONSTIPATION 12/31/2016 NEERU CABAN DO Ot Z68.30 BODY MASS INDEX (BMI) 30.0-30.9, ADULT 12/31/2016 NEERU CABAN DO Ot Z79.84 RADIO TIME BUYER (CURRENT) USE OF ORAL HYPOGLYC 12/31/2016 NEERU CABAN DO Ot Z79.899 OTHER [facility] (CURRENT) DRUG THERAPY 12/31/2016 NEERU CABAN DO Ot Z80.0 FAMILY HISTORY OF MALIGNANT NEOPLASM OF 12/31/2016 NEERU CABAN DO Ot Z86.010 PERSONAL HISTORY OF COLONIC POLYPS 12/31/2016 NEERU CABAN DO Ot D86.9 SARCOIDOSIS, UNSPECIFIED 12/31/2016 NEERU CABAN DO Ot E11.9 TYPE 2 DIABETES MELLITUS WITHOUT COMPLIC 12/31/2016 NEERU CABAN DO Ot E55.9 VITAMIN D DEFICIENCY, UNSPECIFIED 12/31/2016 NEERU CABAN DO Ot E66.9 OBESITY, UNSPECIFIED 12/31/2016 NEERU CABAN DO Ot F32.9 MAJOR DEPRESSIVE DISORDER, SINGLE EPISOD 12/31/2016 NEERU CABAN DO Ot F41.9 ANXIETY DISORDER, UNSPECIFIED 12/31/2016 NEERU CABAN DO Ot I10 ESSENTIAL (PRIMARY) HYPERTENSION 12/31/2016 NEERU CABAN DO Ot J45.909 UNSPECIFIED ASTHMA, UNCOMPLICATED 12/31/2016 NEERU CABAN DO Ot K59.09 OTHER CONSTIPATION 12/31/2016 NEERU CABAN DO Ot Z68.30 BODY MASS INDEX (BMI) 30.0-30.9, ADULT 12/31/2016 NEERU CABAN DO Ot Z79.84 RADIO TIME BUYER (CURRENT) USE OF ORAL HYPOGLYC 12/31/2016 NEERU CABAN DO Ot Z79.899 OTHER RADIO TIME BUYER (CURRENT) DRUG THERAPY 12/31/2016 NEERU CABAN DO Ot Z80.0 FAMILY HISTORY OF MALIGNANT NEOPLASM OF 12/31/2016 NEERU CABAN DO Ot Z86.010 PERSONAL HISTORY OF COLONIC POLYPS 01/05/2017 EMERY GARDUNO DO Ot D86.9 SARCOIDOSIS, UNSPECIFIED 01/05/2017 EMERY GARDUNO DO Ot J45.909 UNSPECIFIED ASTHMA, UNCOMPLICATED 01/05/2017 EMERY GARDUNO DO Ot D86.9 SARCOIDOSIS, UNSPECIFIED 01/05/2017 EMERY GARDUNO DO Ot J45.909 UNSPECIFIED ASTHMA, UNCOMPLICATED 01/21/2017 NEERU CABAN DO Ot D86.9 SARCOIDOSIS, UNSPECIFIED 01/21/2017 NEERU CABAN DO Ot E11.9 TYPE 2 DIABETES MELLITUS WITHOUT COMPLIC 01/21/2017 NEERU CABAN DO Ot E55.9 VITAMIN D DEFICIENCY, UNSPECIFIED 01/21/2017 NEERU CABAN DO Ot E66.9 OBESITY, UNSPECIFIED 01/21/2017 NEERU CABAN DO Ot F32.9 MAJOR DEPRESSIVE DISORDER, SINGLE EPISOD 01/21/2017 NEERU CABAN DO Ot F41.9 ANXIETY DISORDER, UNSPECIFIED 01/21/2017 NEERU CABAN DO Ot I10 ESSENTIAL (PRIMARY) HYPERTENSION 01/21/2017 NEERU CABAN DO Ot J45.909 UNSPECIFIED ASTHMA, UNCOMPLICATED 01/21/2017 NEERU CABAN DO Ot K59.09 OTHER CONSTIPATION 01/21/2017 NEERU CABAN DO Ot Z68.30 BODY MASS INDEX (BMI) 30.0-30.9, ADULT 01/21/2017 NEERU CABAN DO Ot Z79.84 RADIO TIME BUYER (CURRENT) USE OF ORAL HYPOGLYC 01/21/2017 NEERU CABAN DO Ot Z79.899 OTHER RADIO TIME BUYER (CURRENT) DRUG THERAPY 01/21/2017 NEERU CABAN DO Ot Z80.0 FAMILY HISTORY OF MALIGNANT NEOPLASM OF 01/21/2017 NEERU CABAN DO Ot Z86.010 PERSONAL HISTORY OF COLONIC POLYPS 01/25/2017 NEERU CABAN DO Ot D86.9 SARCOIDOSIS, UNSPECIFIED 01/25/2017 NEERU CABAN DO Ot E11.9 TYPE 2 DIABETES MELLITUS WITHOUT COMPLIC 01/25/2017 NEERU CABAN DO Ot E55.9 VITAMIN D DEFICIENCY, UNSPECIFIED 01/25/2017 NEERU CABAN DO Ot E66.9 OBESITY, UNSPECIFIED 01/25/2017 NEERU CABAN DO Ot F32.9 MAJOR DEPRESSIVE DISORDER, SINGLE EPISOD 01/25/2017 NEERU CABAN DO Ot F41.9 ANXIETY DISORDER, UNSPECIFIED 01/25/2017 NEERU CABAN DO Ot I10 ESSENTIAL (PRIMARY) HYPERTENSION 01/25/2017 NEERU CABAN DO Ot J45.909 UNSPECIFIED ASTHMA, UNCOMPLICATED 01/25/2017 NEERU CABAN DO Ot K59.09 OTHER CONSTIPATION 01/25/2017 NEERU CABAN DO Ot Z68.30 BODY MASS INDEX (BMI) 30.0-30.9, ADULT 01/25/2017 NEERU CABAN DO Ot Z79.84 RADIO TIME BUYER (CURRENT) USE OF ORAL HYPOGLYC 01/25/2017 NEERU CABAN DO Ot Z79.899 OTHER [facility] (CURRENT) DRUG THERAPY 01/25/2017 NEERU CABAN DO Ot Z80.0 FAMILY HISTORY OF MALIGNANT NEOPLASM OF 01/25/2017 NEERU CABAN DO Ot Z86.010 PERSONAL HISTORY OF COLONIC POLYPS 02/06/2017 EMERY GARDUNO DO Ot D86.9 SARCOIDOSIS, UNSPECIFIED 02/06/2017 EMERY GARDUNO DO Ot J45.909 UNSPECIFIED ASTHMA, UNCOMPLICATED 03/02/2017 TANIA CALIXTO, AVINASH M Ot R55 SYNCOPE AND COLLAPSE 03/19/2017 MOY CALIXTO, PRISCA Yoder Ot I49.9 CARDIAC ARRHYTHMIA, UNSPECIFIED 03/22/2017 PRISCA WINTER MD Ot I49.9 CARDIAC ARRHYTHMIA, UNSPECIFIED 03/24/2017 TORIN CALIXTO, Kushal ROSAS Ot I47.1 SUPRAVENTRICULAR TACHYCARDIA 03/24/2017 TORIN CALIXTO, Kushal ROSAS Ot I48.0 PAROXYSMAL ATRIAL FIBRILLATION 03/24/2017 TORIN CALIXTO, Kushal ROSAS Ot R00.2 PALPITATIONS 03/24/2017 JONAH CALIXTO, SUSAN Pack Ot S42.491D OTH DISP FX OF LOWER END R HUMER, SUBS F 03/24/2017 JONAH CALIXTO, SUSAN Pack Ot W19.XXXD UNSPECIFIED FALL, SUBSEQUENT ENCOUNTER 03/24/2017 JONAH CALIXTO, SUSAN Pack Ot Y99.8 OTHER EXTERNAL CAUSE STATUS 03/24/2017 PRISCA WINTER MD Ot R07.81 PLEURODYNIA 03/24/2017 PRISCA WINTER MD Ot J45.30 MILD PERSISTENT ASTHMA, UNCOMPLICATED 03/24/2017 PRISCA WINTER MD Ot Z12.31 ENCNTR SCREEN MAMMOGRAM FOR MALIGNANT NE 03/24/2017 EMERY GARDUNO DO Ot D86.9 SARCOIDOSIS, UNSPECIFIED 03/24/2017 EMERY GARDUNO DO Ot J45.909 UNSPECIFIED ASTHMA, UNCOMPLICATED 03/24/2017 MIKE ALDRIDGE DO Ot M94.262 CHONDROMALACIA, LEFT KNEE 03/24/2017 PRISCA WINTER MD Ot N18.3 CHRONIC KIDNEY DISEASE, STAGE 3 (MODERAT 03/24/2017 PRISCA WINTER MD Ot N26.1 ATROPHY OF KIDNEY (TERMINAL) 03/24/2017 NEERU CABAN DO Ot D86.9 SARCOIDOSIS, UNSPECIFIED 03/24/2017 NEERU CABAN DO Ot E11.9 TYPE 2 DIABETES MELLITUS WITHOUT COMPLIC 03/24/2017 NEERU CABAN DO Ot E55.9 VITAMIN D DEFICIENCY, UNSPECIFIED 03/24/2017 NEERU CABAN DO Ot E66.9 OBESITY, UNSPECIFIED 03/24/2017 NEERU CABAN DO Ot F32.9 MAJOR DEPRESSIVE DISORDER, SINGLE EPISOD 03/24/2017 CABAN NEERU TORERZ Ot F41.9 ANXIETY DISORDER, UNSPECIFIED 03/24/2017 CABAN NEERU TORREZ Ot I10 ESSENTIAL (PRIMARY) HYPERTENSION 03/24/2017 NEERU CABAN DO Ot J45.909 UNSPECIFIED ASTHMA, UNCOMPLICATED 03/24/2017 ARSH TORREZNEERU Ot K59.09 OTHER CONSTIPATION 03/24/2017 NEERU CABAN DO Ot Z68.30 BODY MASS INDEX (BMI) 30.0-30.9, ADULT 03/24/2017 NEERU CABAN DO Ot Z79.84 RADIO TIME BUYER (CURRENT) USE OF ORAL HYPOGLYC 03/24/2017 NEERU CABAN DO Ot Z79.899 OTHER RADIO TIME BUYER (CURRENT) DRUG THERAPY 03/24/2017 NEERU CABAN DO Ot Z80.0 FAMILY HISTORY OF MALIGNANT NEOPLASM OF 03/24/2017 ARSH TORREZNEERU Ot Z86.010 PERSONAL HISTORY OF COLONIC POLYPS 03/24/2017 NEERU CABAN DO Ot D64.9 ANEMIA, UNSPECIFIED 03/24/2017 NEERU CABAN DO Ot K59.00 CONSTIPATION, UNSPECIFIED 03/24/2017 CABAN NEERU TORREZ Ot Z01.818 ENCOUNTER FOR OTHER PREPROCEDURAL EXAMIN 03/24/2017 NEERU CABAN DO Ot Z86.010 PERSONAL HISTORY OF COLONIC POLYPS 03/24/2017 EMERY GARDUNO DO Ot D86.9 SARCOIDOSIS, UNSPECIFIED 03/24/2017 EMERY GARDUNO DO Ot J45.909 UNSPECIFIED ASTHMA, UNCOMPLICATED 03/24/2017 TANIA CALIXTO, AVINASH Fatima Ot R55 SYNCOPE AND COLLAPSE 03/24/2017 MOY CALIXTO, PRISCA Yoder Ot G47.9 SLEEP DISORDER, UNSPECIFIED 03/24/2017 TORIN CALIXTO, Kushal ROSAS Ot I47.1 SUPRAVENTRICULAR TACHYCARDIA 03/24/2017 TORIN CALIXTO, Kushal ROSAS Ot I48.0 PAROXYSMAL ATRIAL FIBRILLATION 03/24/2017 TORIN CALIXTO, Kushal ROSAS Ot R00.2 PALPITATIONS 03/30/2017 TORIN CALIXTO, Kushal ROSAS Ot E11.9 TYPE 2 DIABETES MELLITUS WITHOUT COMPLIC 03/30/2017 TORIN CALIXTO, M ALISON Ot I10 ESSENTIAL (PRIMARY) HYPERTENSION 03/30/2017 TORIN CALIXTO, M ALISON Ot I47.1 SUPRAVENTRICULAR TACHYCARDIA 03/30/2017 TORIN CALIXTO, M ALISON Ot I48.0 PAROXYSMAL ATRIAL FIBRILLATION 04/02/2017 TANIA CALIXTO, AVINASH M Ot R55 SYNCOPE AND COLLAPSE 04/04/2017 TORIN CALIXTO, M ALISON Ot E11.9 TYPE 2 DIABETES MELLITUS WITHOUT COMPLIC 04/04/2017 TORIN CALIXTO, M ALISON Ot I10 ESSENTIAL (PRIMARY) HYPERTENSION 04/04/2017 TORIN CALIXTO, M ALISON Ot I47.1 SUPRAVENTRICULAR TACHYCARDIA 04/04/2017 TORIN CALXITO M ALISON Ot I48.0 PAROXYSMAL ATRIAL FIBRILLATION 04/06/2017 TANIA CALIXTO, AVINASH M Ot R55 SYNCOPE AND COLLAPSE 04/20/2017 TORIN CALIXTO M ALISON Ot E11.9 TYPE 2 DIABETES MELLITUS WITHOUT COMPLIC 04/20/2017 TORIN CALIXTO M ALISON Ot I10 ESSENTIAL (PRIMARY) HYPERTENSION 04/20/2017 TORIN CALIXTO M ALISON Ot I47.1 SUPRAVENTRICULAR TACHYCARDIA 04/20/2017 TORIN CALIXTO, M ALISON Ot I48.0 PAROXYSMAL ATRIAL FIBRILLATION 04/21/2017 TORIN CALIXTO M ALISON Ot I10 ESSENTIAL (PRIMARY) HYPERTENSION 04/21/2017 TORIN CALIXTO, M ALISON Ot I47.1 SUPRAVENTRICULAR TACHYCARDIA 04/21/2017 TORIN CALIXTO, M ALISON Ot I48.0 PAROXYSMAL ATRIAL FIBRILLATION 04/21/2017 TORIN CALIXTO M ALISON Ot R00.2 PALPITATIONS 04/22/2017 PRISCA WINTER MD Ot G47.9 SLEEP DISORDER, UNSPECIFIED 04/23/2017 TORIN CALIXTO M ALISON Ot E11.9 TYPE 2 DIABETES MELLITUS WITHOUT COMPLIC 04/23/2017 TORIN CALIXTO M ALISON Ot I10 ESSENTIAL (PRIMARY) HYPERTENSION 04/23/2017 TORIN CALIXTO M ALISON Ot I47.1 SUPRAVENTRICULAR TACHYCARDIA 04/23/2017 TORIN CALIXTO M ALISON Ot I48.0 PAROXYSMAL ATRIAL FIBRILLATION 04/25/2017 PRISCA WINTER MD Ot G47.9 SLEEP DISORDER, UNSPECIFIED 04/25/2017 PRISCA WINTER MD Ot I48.0 PAROXYSMAL ATRIAL FIBRILLATION 04/25/2017 PRISCA WINTER MD Ot R06.83 SNORING 04/25/2017 PRISCA WINTER MD Ot R29.6 REPEATED FALLS Procedures Code Description [place] [id number] A1C (IN-HOUSE) 08/10/2014 [id number] REPOSITION RIGHT HUMERAL SHAFT WITH INT FIX, Susan Shanks MD 03/30/2015 <section xmlns="urn:hl7-org:v3" xmlns:xsi="http://www.[employer].org/2001/ XMLSchema-instance"> <templateId root="[id number]" /> < templateId root="[id number]" /> <code codeSystemName= "LOINC" codeSystem="[id number]" code="06487-1" displayName="Results" /> <title>Results</title> <text> <table> <thead> <tr> <th>Test</th> <th>Result</th> <th>Range</th> </tr> </thead> <tbody> <tr> <th colspan="10">URINE CULTURE - 11:30</th> </tr> <tr> <td>SOURCE</td> <td >SOURCE: CLEAN CATCH URINE </td> <td /> </tr> <tr> <td>REQUISITION NOTE</td> <td>REQUISITION NOTE: NONE </td> <td /> </tr> <tr> <td>CULTURE RESULTS</td> < td>CULTURE RESULTS: AND ENTEROCOCCUS SPECIES A </td> <td /> </tr > <tr> <td>REPORT STATUS</td> <td>REPORT STATUS: 2014 FINAL </td> <td /> </tr> <tr> <td>ORGANISM </td> <td>ORGANISM: ENTEROCOCCUS SPECIES </td> <td /> < /tr> <tr> <th colspan="10">BITA GREATER THAN 100,000 CFU/ML ESCHERICHIA COLI - 05/18/14 11:30</th> </tr> <tr> <td> Ampicillin</td> <td>Ampicillin S </td> <td /> </tr> <tr> <td>Ampicillin/Sulbactam</td> <td>Ampicillin/S S </ td> <td /> </tr> <tr> <td>Aztreonam</td> <td>Aztreonam S </td> <td /> </tr> <tr> <td> Cefazolin</td> <td>Cefazolin S </td> <td /> </tr> <tr> <td>Cefepime</td> <td>Cefepime S </td> <td / > </tr> <tr> <td>Ceftriaxone</td> <td> Ceftriaxone S </td> <td /> </tr> <tr> <td> Ertapenem</td> <td>Ertapenem S </td> <td /> </tr> <tr> <td>Gentamicin</td> <td>Gentamicin S </td> < td /> </tr> <tr> <td>Levofloxacin</td> <td> Levofloxacin S </td> <td /> </tr> <tr> <td> Meropenem</td> <td>Meropenem S </td> <td /> </tr> <tr> <td>Nitrofurantoin</td> <td>Nitrofuranto S </td> <td /> </tr> <tr> <td>Piperacillin/Tazobactam</td> <td>PIPTAZ S </td> <td /> </tr> <tr> < td>Tigecycline</td> <td>TIGECYCLINE S </td> <td /> </tr > <tr> <td>Tobramycin</td> <td>Tobramycin S </td> <td /> </tr> <tr> <td>Trimeth/Sulfa</td> < td>TRIMETH/SULF S </td> <td /> </tr> <tr> <td> Ceftazidime</td> <td>Ceftazidime S </td> <td /> </tr> <tr> <th colspan="10">BITA AND ENTEROCOCCUS SPECIES - 05/18/14 11 :30</th> </tr> <tr> <td>Ampicillin</td> <td> Ampicillin S </td> <td /> </tr> <tr> <td> Benzylpenicillin (Pen G)</td> <td>LIZET S </td> <td /> < /tr> <tr> <td>Levofloxacin</td> <td>Levofloxacin S </td > <td /> </tr> <tr> <td>Nitrofurantoin</td> <td>Nitrofuranto S </td> <td /> </tr> <tr> <td>Tigecycline</td> <td>TIGECYCLINE S </td> <td /> < /tr> <tr> <td>Ciprofloxacin</td> <td>Ciprofloxaci S </ td> <td /> </tr> <tr> <td>Linezolid</td> <td>Linezolid S </td> <td /> </tr> <tr> <td> Synercid</td> <td>SYNERCID R </td> <td /> </tr> <tr> <td>Tetracycline</td> <td>Tetracycline R </td> < td /> </tr> <tr> <td>Vancomycin</td> <td> Vancomycin S </td> <td /> </tr> <tr> <th colspan ="10">COMPREHENSIVE METABOLIC PANEL - 10/03/14 08:43</th> </tr> < tr> <td>POTASSIUM</td> <td>4.8 mmol/L</td> <td>3.5- 5.1</td> </tr> <tr> <td>CALCIUM</td> <td>9.4 mg/ dL</td> <td>8.6-10.6</td> </tr> <tr> <td>GLUCOSE </td> <td>210 mg/dL</td> <td>80-115</td> </tr> < tr> <td>BUN</td> <td>21 mg/dL</td> <td>8-22</td> </tr> <tr> <td>CREATININE</td> <td>1.1 mg/dL</td> <td>0.6-1.1</td> </tr> <tr> <td>SODIUM</td> <td>141 mmol/L</td> <td>136-145</td> </tr> <tr> <td>CHLORIDE</td> <td>104 mmol/L</td> <td>98-110</td> </tr> <tr> <td>CO2</td> <td>26 mmol/L</td> <td>22-29</td> </tr> <tr> <td>GFR ESTIMATED NOT AFR/ AM</td> <td>50 </td> <td /> </tr> <tr> <td>GFR ESTIMATED IF AFR/AM</td> <td>>60 </td> <td /> </tr> <tr> <td>ALT-SGPT</td> <td>29 U/L</td> <td>0-55</td> </tr> <tr> <td>AST-SGOT</td> < td>27 U/L</td> <td>5-34</td> </tr> <tr> <td> TOTAL PROTEIN,SERUM</td> <td>7.1 g/dL</td> <td>6-8.3</td> </tr> <tr> <td>ALBUMIN</td> <td>4.0 g/dL</td> <td>3.6-5.3</td> </tr> <tr> <td>ALKALINE PHOSPHATASE </td> <td>77 U/L</td> <td>40-150</td> </tr> <tr > <td>TOTAL BILIRUBIN</td> <td>0.7 mg/dL</td> <td>0.2 -1.2</td> </tr> <tr> <td>ANION GAP</td> <td>11 < /td> <td>5-15</td> </tr> <tr> <td>GLOBULIN, CALCULATED</td> <td>3.1 g/dL</td> <td /> </tr> < tr> <td>A/G RATIO</td> <td>1.3 ratio</td> <td>1-1.8</ td> </tr> <tr> <th colspan="10">LIPID PANEL W/REFLEX LDL - 10/03/14 08:43</th> </tr> <tr> <td>TRIGLYCERIDES</td> <td>145 mg/dL</td> <td>20-170</td> </tr> <tr> <td>CHOLESTEROL</td> <td>147 mg/dL</td> <td>140-200</ td> </tr> <tr> <td>HDL</td> <td>37 mg/dL</td> <td>35-60</td> </tr> <tr> <td>LDL</td> < td>81 mg/dL</td> <td>60-130</td> </tr> <tr> <th colspan="10">TSH WITH REFLEX TO FREE T4 - 10/03/14 08:43</th> </tr> <tr> <td>TSH</td> <td>1.91 m[iU]/mL</td> <td>0.35- 4.90</td> </tr> <tr> <th colspan="10">MICROALBUMIN/ CREATININE URINE - 10/03/14 08:43</th> </tr> <tr> <td> HOURS</td> <td>RANDOM </td> <td /> </tr> <tr> <td>VOLUME</td> <td>RANDOM </td> <td /> </tr> <tr> <td>MICROALBUMIN, URINE, QUANT</td> <td>18.0 ug/mL </td> <td /> </tr> <tr> <td>CREATININE, RANDOM URINE</td> <td>100.9 mg/dL</td> <td /> </tr> <tr > <td>RANDOM ALB/CREAT</td> <td>17.8 ratio</td> <td / > </tr> <tr> < colspan="10">CBC WITH DIFF - 10/03/14 08 :43</th> </tr> <tr> <td>WBC</td> <td>6.5 10*3/uL </td> <td>4.0-10.8</td> </tr> <tr> <td>RBC</td> <td>4.20 10*6/uL</td> <td>4.20-5.40</td> </tr> <tr> <td>HGB</td> <td>13.5 g/dL</td> <td>12.0-16.0</ td> </tr> <tr> <td>HCT</td> <td>39.9 %</td> <td>37-47</td> </tr> <tr> <td>MCV</td> <td>95 fL</td> <td>81-99</td> </tr> <tr> <td> MCH</td> <td>32 pg</td> <td>26-34</td> </tr> <tr > <td>MCHC</td> <td>34 g/dL</td> <td>31-37</td> </tr> <tr> <td>PLATELET COUNT</td> <td>263 10*3/uL</ td> <td>150-400</td> </tr> <tr> <td>RDWCV</td> <td>13.9 %</td> <td>11.5-14.5</td> </tr> <tr > <td>DIFF TYPE</td> <td>AUTOMATED DIFF </td> <td /> </tr> <tr> <td>NEUTROPHIL %</td> <td>64 &# 37;</td> <td>36-66</td> </tr> <tr> <td> LYMPHOCYTE %</td> <td>24 %</td> <td>24-44</td> </tr> <tr> <td>MONOCYTE %</td> <td>8 %</td> <td>1-10</td> </tr> <tr> <td>EOSINOPHIL %</td > <td>4 %</td> <td>0-6</td> </tr> <tr> <td>BASOPHIL %</td> <td>1 %</td> <td>0-2</td> </tr> <tr> <td>ABS. NEUTROPHILS</td> <td>4.1 10*3/ uL</td> <td>1.55-7.13</td> </tr> <tr> <td>ABS. LYMPHOCYTES</td> <td>1.5 10*3/uL</td> <td>1.0-4.8</td> </tr> <tr> <td>ABS. MONOCYTES</td> <td>0.5 10*3/uL</td > <td>0.4-1.08</td> </tr> <tr> <td>ABS. EOSINOPHILS</td> <td>0.3 10*3/uL</td> <td>0.0-0.65</td> </tr> <tr> <td>ABS. BASOPHILS</td> <td>0.1 10*3/uL</ td> <td>0.0-0.11</td> </tr> <tr> <td>ABSOLUTE NUCLEATED RBC</td> <td>0.10 10*3/uL</td> <td /> </tr> <tr> < colspan="10">HEMOGLOBIN A1C - 10/03/14 08:43</th> </tr> <tr> <td>HEMOGLOBIN A1C</td> <td>8.4 %</td > <td><5.6</td> </tr> <tr> <td>ESTIMATED AVERAGE GLUCOSE</td> <td>194 mg/dL</td> <td /> </tr> <tr> < colspan="10">VITAMIN D 25-HYDROXY - 10/03/14 08:43</th> </tr> <tr> <td>VITAMIN D (25-OH)</td> <td>23.4 ng/mL</td> <td /> </tr> <tr> < colspan="10"> GLUCOSE (POC) - 03/29/15 23:33</th> </tr> <tr> <td> GLUCOSE (POC)</td> <td>165 mg/dL</td> <td>70-99</td> </ tr> <tr> < colspan="10">MRSA SURVEILLANCE SCREEN - 03/30/15 06 :00</th> </tr> <tr> <td>Microbiology</td> <td> < /td> <td /> </tr> <tr> < colspan="10">GLUCOSE (POC) - 03/30/15 06:36</th> </tr> <tr> <td>GLUCOSE (POC)< /td> <td>138 mg/dL</td> <td>70-99</td> </tr> <tr > < colspan="10">GLUCOSE (POC) - 03/30/15 10:31</th> </tr> <tr> <td>GLUCOSE (POC)</td> <td>191 mg/dL</td> < td>70-99</td> </tr> <tr> < colspan="10">GLUCOSE (POC) - 03/30/15 15:14</th> </tr> <tr> <td>GLUCOSE (POC)</td> <td>207 mg/dL</td> <td>70-99</td> </tr> <tr> <th colspan="10">GLUCOSE (POC) - 03/30/15 21:12</th> </tr> <tr> <td>GLUCOSE (POC)</td> <td>176 mg/dL</td> <td>70 -99</td> </tr> <tr> <th colspan="10">GLUCOSE (POC) - 06:23</th> </tr> <tr> <td>GLUCOSE (POC)</td> <td>158 mg/dL</td> <td>70-99</td> </tr> <tr> <th colspan="10">PROTHROMBIN TIME WITH INR - 03/31/15 06:42</th> </tr> <tr> <td>INTERNATIONAL NORMAL RATIO</td> <td>0.9 </td > <td>0.9-1.1</td> </tr> <tr> <td>PROTHROMBIN TIME</td> <td>10.3 sec</td> <td>9.3-12.2</td> </tr> <tr> <th colspan="10">PARTIAL THROMBOPLASTIN TIME - 03/31/15 06:42 </th> </tr> <tr> <td>PARTIAL THROMBOPLASTIN TIME</td> <td>30 sec</td> <td>23-39</td> </tr> <tr> <th colspan="10">CBC W/DIFF - 03/31/15 06:43</th> </tr> <tr> <td>BASOPHIL #</td> <td>0.0 k/cumm</td> <td>0.0-0.2</td > </tr> <tr> <td>BASOPHIL %</td> <td>1 % </td> <td>0-1</td> </tr> <tr> <td>EOSINOPHIL #</ td> <td>0.3 k/cumm</td> <td>0.1-0.5</td> </tr> < tr> <td>EOSINOPHIL %</td> <td>4 %</td> <td>2- 4</td> </tr> <tr> <td>GRANULOCYTE #</td> <td> 4.2 k/cumm</td> <td>2.0-9.0</td> </tr> <tr> <td> GRANULOCYTE %</td> <td>57 %</td> <td>50-75</td> </tr> <tr> <td>LYMPHOCYTE #</td> <td>2.1 k/cumm</td> <td>1.0-4.0</td> </tr> <tr> <td>LYMPHOCYTE &#37 ;</td> <td>29 %</td> <td>20-30</td> </tr> < tr> <td>MEAN CELL HGB</td> <td>30.0 pg</td> <td>27.0- 33.0</td> </tr> <tr> <td>MEAN CELL HGB CONCENTRATION</td > <td>32.1 g/dL</td> <td>32.0-37.0</td> </tr> < tr> <td>MEAN CELL VOLUME</td> <td>93.3 fl</td> <td> 80.0-100.0</td> </tr> <tr> <td>MONOCYTE #</td> < td>0.7 k/cumm</td> <td>0.1-1.0</td> </tr> <tr> < td>MONOCYTE %</td> <td>9 %</td> <td>4-6</td> </ tr> <tr> <td>RED BLOOD CELL</td> <td>4.47 m/cumm</td> <td>4.00-6.00</td> </tr> <tr> <td>RED CELL DISTRIBUTION WIDTH</td> <td>13.9 %</td> <td>11.0-15.6</td > </tr> <tr> <td>WHITE BLOOD CELL</td> <td>7.4 k /cumm</td> <td>5.0-10.0</td> </tr> <tr> <td> HEMOGLOBIN</td> <td>13.4 gm/dL</td> <td>12.0-16.0</td> </tr> <tr> <td>HEMATOCRIT</td> <td>41.7 %</td> <td>37.0-47.0</td> </tr> <tr> <td>PLATELET COUNT</ td> <td>233 k/cumm</td> <td>150-400</td> </tr> < tr> <th colspan="10">METABOLIC PANEL, COMPREHN - 03/31/15 06:43</th> </tr> <tr> <td>POTASSIUM</td> <td>3.9 mmol/L</td > <td>3.5-5.3</td> </tr> <tr> <td>EST GFR (MDRD) </td> <td>45 mL/min</td> <td>> 59</td> </tr> <tr> <td>ANION GAP</td> <td>6 mmol/L</td> <td>5-15</ td> </tr> <tr> <td>EST CrCl (CG)</td> <td>57 mL/ min</td> <td>> 59</td> </tr> <tr> <td>GLUCOSE </td> <td>167 mg/dL</td> <td>70-99</td> </tr> < tr> <td>CALCIUM</td> <td>8.4 mg/dL</td> <td>8.5-10.1< /td> </tr> <tr> <td>BLOOD UREA NITROGEN</td> <td >21 mg/dL</td> <td>7-20</td> </tr> <tr> <td> CREATININE</td> <td>1.2 mg/dL</td> <td>0.6-1.0</td> </ tr> <tr> <td>SODIUM</td> <td>139 mmol/L</td> < td>135-148</td> </tr> <tr> <td>CHLORIDE</td> <td >108 mmol/L</td> <td>98-110</td> </tr> <tr> <td> AST/SGOT</td> <td>30 Units/L</td> <td>10-37</td> </tr> <tr> <td>ALT/SGPT</td> <td>35 Units/L</td> < td>< 66</td> </tr> <tr> <td>CARBON DIOXIDE</td> <td>25 mmol/L</td> <td>21-32</td> </tr> <tr> <td>TOTAL PROTEIN</td> <td>7.5 gm/dL</td> <td>6.4-8.2</td> </tr> <tr> <td>ALBUMIN</td> <td>3.5 gm/dL</td> <td>3.4-5.0</td> </tr> <tr> <td>BILI TOTAL</td> <td>0.5 mg/dL</td> <td>0.0-1.0</td> </tr> <tr> <td>ALKALINE PHOSPHATASE TOTAL</td> <td>78 IU/L</td> <td>45-117</td> </tr> <tr> <th colspan="10">GLUCOSE ( POC) - 03/31/15 08:14</th> </tr> <tr> <td>GLUCOSE (POC)</ td> <td>186 mg/dL</td> <td>70-99</td> </tr> <tr > <th colspan="10">GLUCOSE (POC) - 03/31/15 10:03</th> </tr> <tr> <td>GLUCOSE (POC)</td> <td>196 mg/dL</td> < td>70-99</td> </tr> <tr> <th colspan="10">GLUCOSE (POC) - 03/31/15 11:59</th> </tr> <tr> <td>GLUCOSE (POC)</td> <td>195 mg/dL</td> <td>70-99</td> </tr> <tr> <th colspan="10">GLUCOSE (POC) - 03/31/15 17:30</th> </tr> <tr> <td>GLUCOSE (POC)</td> <td>167 mg/dL</td> <td>70 -99</td> </tr> <tr> <th colspan="10">GLUCOSE (POC) - 20:28</th> </tr> <tr> <td>GLUCOSE (POC)</td> <td>158 mg/dL</td> <td>70-99</td> </tr> <tr> <th colspan="10">HGB HCT - 04/01/15 05:34</th> </tr> <tr> <td>MEAN CELL VOLUME</td> <td>93.4 fl</td> <td>80.0- 100.0</td> </tr> <tr> <td>HEMOGLOBIN</td> <td> 10.7 gm/dL</td> <td>12.0-16.0</td> </tr> <tr> < td>HEMATOCRIT</td> <td>33.7 %</td> <td>37.0-47.0</td> </tr> <tr> <th colspan="10">[facility] - 05:34</th> </tr> <tr> <td>POTASSIUM</td> < td>3.8 mmol/L</td> <td>3.5-5.3</td> </tr> <tr> < td>EST GFR (MDRD)</td> <td>55 mL/min</td> <td>> 59</td> </tr> <tr> <td>ANION GAP</td> <td>7 mmol/L</td> <td>5-15</td> </tr> <tr> <td>EST CrCl (CG)</td> <td>> 60 mL/min</td> <td>> 59</td> </tr> < tr> <td>GLUCOSE</td> <td>205 mg/dL</td> <td>70-99</td > </tr> <tr> <td>CALCIUM</td> <td>7.9 mg/dL</td > <td>8.5-10.1</td> </tr> <tr> <td>BLOOD UREA NITROGEN</td> <td>12 mg/dL</td> <td>7-20</td> </tr> <tr> <td>CREATININE</td> <td>1.0 mg/dL</td> <td> 0.6-1.0</td> </tr> <tr> <td>SODIUM</td> <td>141 mmol/L</td> <td>135-148</td> </tr> <tr> <td> CHLORIDE</td> <td>108 mmol/L</td> <td>98-110</td> </tr > <tr> <td>AST/SGOT</td> <td>20 Units/L</td> < td>10-37</td> </tr> <tr> <td>ALT/SGPT</td> <td> 25 Units/L</td> <td>< 66</td> </tr> <tr> <td> CARBON DIOXIDE</td> <td>26 mmol/L</td> <td>21-32</td> < /tr> <tr> <td>TOTAL PROTEIN</td> <td>6.3 gm/dL</td> <td>6.4-8.2</td> </tr> <tr> <td>ALBUMIN</td> <td>2.8 gm/dL</td> <td>3.4-5.0</td> </tr> <tr> <td>BILI TOTAL</td> <td>0.5 mg/dL</td> <td>0.0-1.0</td> </tr> <tr> <td>ALKALINE PHOSPHATASE TOTAL</td> < td>67 IU/L</td> <td>45-117</td> </tr> <tr> < colspan="10">GLUCOSE (POC) - 04/01/15 05:52</th> </tr> <tr> <td>GLUCOSE (POC)</td> <td>194 mg/dL</td> <td>70-99</td> </tr> <tr> < colspan="10">GLUCOSE (POC) - 04/01/15 11: 18</th> </tr> <tr> <td>GLUCOSE (POC)</td> <td> 164 mg/dL</td> <td>70-99</td> </tr> <tr> <th colspan="10">GLUCOSE (POC) - 04/01/15 15:16</th> </tr> <tr> <td>GLUCOSE (POC)</td> <td>167 mg/dL</td> <td>70-99</td> </tr> <tr> <th colspan="10">GLUCOSE (POC) - 04/01/15 21: 04</th> </tr> <tr> <td>GLUCOSE (POC)</td> <td> 210 mg/dL</td> <td>70-99</td> </tr> <tr> < colspan="10">GLUCOSE (POC) - 04/02/15 06:18</th> </tr> <tr> <td>GLUCOSE (POC)</td> <td>192 mg/dL</td> <td>70-99</td> </tr> <tr> <th colspan="10">GLUCOSE (POC) - 04/02/15 10: 40</th> </tr> <tr> <td>GLUCOSE (POC)</td> <td> 175 mg/dL</td> <td>70-99</td> </tr> <tr> <th colspan="10">GLUCOSE (POC) - 04/02/15 14:53</th> </tr> <tr> <td>GLUCOSE (POC)</td> <td>166 mg/dL</td> <td>70-99</td> </tr> <tr> < colspan="10">GLUCOSE (POC) - 04/02/15 20: 10</th> </tr> <tr> <td>GLUCOSE (POC)</td> <td> 172 mg/dL</td> <td>70-99</td> </tr> <tr> <th colspan="10">GLUCOSE (POC) - 04/03/15 06:42</th> </tr> <tr> <td>GLUCOSE (POC)</td> <td>163 mg/dL</td> <td>70-99</td> </tr> <tr> <th colspan="10">GLUCOSE (POC) - 04/03/15 11: 02</th> </tr> <tr> <td>GLUCOSE (POC)</td> <td> 177 mg/dL</td> <td>70-99</td> </tr> </tbody> </table> < /text> <entry> <organizer moodCode="EVN" classCode="BATTERY"> < templateId root="[id number]" /> <id nullFlavor="NA" /> <code codeSystem="local" code="UCULT" displayName="URINE CULTURE" /> <statusCode code="completed" /> <component> <observation moodCode= "EVN" classCode="OBS"> <templateId root="[id number]..4.2 " /> <id nullFlavor="NA" /> <code codeSystem="local" code= "SDES" displayName="SOURCE" /> <statusCode code="completed" /> <effectiveTime value="" /> <value unit="" xsi:type="PQ" value="SOURCE: CLEAN CATCH URINE " /> <referenceRange> < observationRange> <text /> </observationRange> </referenceRange> </observation> </component> <component> <observation moodCode="EVN" classCode="OBS"> <templateId root= "[id number]2.4.2" /> <id nullFlavor="NA" /> < code codeSystem="local" code="SREQ" displayName="REQUISITION NOTE" /> < statusCode code="completed" /> <effectiveTime value="" /> <value unit="" xsi:type="PQ" value="REQUISITION NOTE: NONE " /> <referenceRange> <observationRange> <text /> </observationRange> </referenceRange> </observation> </ component> <component> <observation moodCode="EVN" classCode="OBS"> <templateId root="[id number].2" /> <id nullFlavor="NA" /> <code codeSystem="local" code="CULT" displayName= "CULTURE RESULTS" /> <statusCode code="completed" /> < effectiveTime value="" /> <value unit="" xsi:type="PQ" value="CULTURE RESULTS: AND ENTEROCOCCUS SPECIES A" /> < interpretationCode codeSystem="local" code="A" /> <referenceRange> <observationRange> <text /> </observationRange> </referenceRange> </observation> </component> < component> <observation moodCode="EVN" classCode="OBS"> < templateId root="[id number]..22.4.2" /> <id nullFlavor="NA " /> <code codeSystem="local" code="RPT" displayName="REPORT STATUS" / > <statusCode code="completed" /> <effectiveTime value= "" /> <value unit="" xsi:type="PQ" value="REPORT STATUS: FINAL " /> <referenceRange> <observationRange> <text /> </observationRange> </referenceRange> </observation> </component> <component> <observation moodCode="EVN" classCode="OBS"> <templateId root= "216.840.1.543345.10..4.2" /> <id nullFlavor="NA" /> < code codeSystem="local" code="ORG" displayName="ORGANISM" /> < statusCode code="completed" /> <effectiveTime value="" /> <value unit="" xsi:type="PQ" value="ORGANISM: ENTEROCOCCUS SPECIES" /> <referenceRange> <observationRange> <text /> </observationRange> </referenceRange> </observation> </component> </organizer> </entry> <entry> <organizer moodCode= "EVN" classCode="BATTERY"> <templateId root="216.840.1.020646.10..22.4.1 " /> <id nullFlavor="NA" /> <code codeSystem="local" code="BITA GREATER THAN 100,000 CFU/ML ESCHERICHIA COLI" displayName="BITA GREATER THAN 100, 000 CFU/ML ESCHERICHIA COLI" /> <statusCode code="completed" /> < component> <observation moodCode="EVN" classCode="OBS"> < templateId root="16.840.1.262901.10..22.4.2" /> <id nullFlavor="NA " /> <code codeSystem="local" code="Ampicillin" displayName="Ampicillin " /> <statusCode code="completed" /> <effectiveTime value= "[id number]" /> <value unit="" xsi:type="PQ" value="Ampicillin S" /> <interpretationCode codeSystem="local" code="S" /> < referenceRange> <observationRange> <text /> < /observationRange> </referenceRange> </observation> </ component> <component> <observation moodCode="EVN" classCode="OBS"> <templateId root="06.25.840.1.690200.10...4.2" /> <id nullFlavor="NA" /> <code codeSystem="local" code="Ampicillin/S" displayName="Ampicillin/Sulbactam" /> <statusCode code="completed" /> <effectiveTime value="[id number]" /> <value unit="" xsi:type ="PQ" value="Ampicillin/S S" /> <interpretationCode codeSystem="local" code="S" /> <referenceRange> <observationRange> <text /> </observationRange> </referenceRange> </ observation> </component> <component> <observation moodCode= "EVN" classCode="OBS"> <templateId root="16.840.1.231989.10..22.4.2 " /> <id nullFlavor="NA" /> <code codeSystem="local" code= "Aztreonam" displayName="Aztreonam" /> <statusCode code="completed" /> <effectiveTime value="[id number]" /> <value unit="" xsi: type="PQ" value="Aztreonam S" /> <interpretationCode codeSystem="local " code="S" /> <referenceRange> <observationRange> <text /> </observationRange> </referenceRange> </ observation> </component> <component> <observation moodCode= "EVN" classCode="OBS"> <templateId root="[id number].2 " /> <id nullFlavor="NA" /> <code codeSystem="local" code= "Cefazolin" displayName="Cefazolin" /> <statusCode code="completed" /> <effectiveTime value="271032938485" /> <value unit="" xsi: type="PQ" value="Cefazolin S" /> <interpretationCode codeSystem="local " code="S" /> <referenceRange> <observationRange> <text /> </observationRange> </referenceRange> </ observation> </component> <component> <observation moodCode= "EVN" classCode="OBS"> <templateId root="2.16.840.1.399902.10..22.4.2 " /> <id nullFlavor="NA" /> <code codeSystem="local" code= "Cefepime" displayName="Cefepime" /> <statusCode code="completed" /> <effectiveTime value="920988072960" /> <value unit="" xsi:type= "PQ" value="Cefepime S" /> <interpretationCode codeSystem="local" code= "S" /> <referenceRange> <observationRange> < text /> </observationRange> </referenceRange> </ observation> </component> <component> <observation moodCode= "EVN" classCode="OBS"> <templateId root="16.840.1.486356.10..22.4.2 " /> <id nullFlavor="NA" /> <code codeSystem="local" code= "Ceftriaxone" displayName="Ceftriaxone" /> <statusCode code="completed " /> <effectiveTime value="" /> <value unit="" xsi :type="PQ" value="Ceftriaxone S" /> <interpretationCode codeSystem= "local" code="S" /> <referenceRange> <observationRange> <text /> </observationRange> </referenceRange> </observation> </component> <component> <observation moodCode="EVN" classCode="OBS"> <templateId root= "06.25.840.1.631898...4.2" /> <id nullFlavor="NA" /> < code codeSystem="local" code="Ertapenem" displayName="Ertapenem" /> < statusCode code="completed" /> <effectiveTime value="" /> <value unit="" xsi:type="PQ" value="Ertapenem S" /> < interpretationCode codeSystem="local" code="S" /> <referenceRange> <observationRange> <text /> </observationRange> </referenceRange> </observation> </component> < component> <observation moodCode="EVN" classCode="OBS"> < templateId root="16.840.1.423133.10...4.2" /> <id nullFlavor="NA " /> <code codeSystem="local" code="Gentamicin" displayName="Gentamicin " /> <statusCode code="completed" /> <effectiveTime value= "" /> <value unit="" xsi:type="PQ" value="Gentamicin S" /> <interpretationCode codeSystem="local" code="S" /> < referenceRange> <observationRange> <text /> < /observationRange> </referenceRange> </observation> </ component> <component> <observation moodCode="EVN" classCode="OBS"> <templateId root="16.840.1.984657.10.20.22.4.2" /> <id nullFlavor="NA" /> <code codeSystem="local" code="Levofloxacin" displayName="Levofloxacin" /> <statusCode code="completed" /> <effectiveTime value="[id number]" /> <value unit="" xsi:type="PQ" value="Levofloxacin S" /> <interpretationCode codeSystem="local" code= "S" /> <referenceRange> <observationRange> < text /> </observationRange> </referenceRange> </ observation> </component> <component> <observation moodCode= "EVN" classCode="OBS"> <templateId root="840.1.806727.10..4.2 " /> <id nullFlavor="NA" /> <code codeSystem="local" code= "Meropenem" displayName="Meropenem" /> <statusCode code="completed" /> <effectiveTime value="898878495996" /> <value unit="" xsi: type="PQ" value="Meropenem S" /> <interpretationCode codeSystem="local " code="S" /> <referenceRange> <observationRange> <text /> </observationRange> </referenceRange> </ observation> </component> <component> <observation moodCode= "EVN" classCode="OBS"> <templateId root="06.25.840.1.850024.10..22.4.2 " /> <id nullFlavor="NA" /> <code codeSystem="local" code= "Nitrofuranto" displayName="Nitrofurantoin" /> <statusCode code= "completed" /> <effectiveTime value="[id number]" /> <value unit="" xsi:type="PQ" value="Nitrofuranto S" /> <interpretationCode codeSystem="local" code="S" /> <referenceRange> < observationRange> <text /> </observationRange> </referenceRange> </observation> </component> <component> <observation moodCode="EVN" classCode="OBS"> <templateId root= "2.16.840.1.599457.10.20.22.4.2" /> <id nullFlavor="NA" /> < code codeSystem="local" code="PIPTAZ" displayName="Piperacillin/Tazobactam" /> <statusCode code="completed" /> <effectiveTime value= "961994824179" /> <value unit="" xsi:type="PQ" value="PIPTAZ S" /> <interpretationCode codeSystem="local" code="S" /> < referenceRange> <observationRange> <text /> < /observationRange> </referenceRange> </observation> </ component> <component> <observation moodCode="EVN" classCode="OBS"> <templateId root="[id number].2" /> <id nullFlavor="NA" /> <code codeSystem="local" code="TIGECYCLINE" displayName="Tigecycline" /> <statusCode code="completed" /> < effectiveTime value="[id number]" /> <value unit="" xsi:type="PQ" value="TIGECYCLINE S" /> <interpretationCode codeSystem="local" code="S " /> <referenceRange> <observationRange> <text /> </observationRange> </referenceRange> </ observation> </component> <component> <observation moodCode= "EVN" classCode="OBS"> <templateId root="16.840.1.446964.10..22.4.2 " /> <id nullFlavor="NA" /> <code codeSystem="local" code= "Tobramycin" displayName="Tobramycin" /> <statusCode code="completed" / > <effectiveTime value="" /> <value unit="" xsi: type="PQ" value="Tobramycin S" /> <interpretationCode codeSystem="local " code="S" /> <referenceRange> <observationRange> <text /> </observationRange> </referenceRange> </ observation> </component> <component> <observation moodCode= "EVN" classCode="OBS"> <templateId root="06.25.840.1.330913.10..4.2 " /> <id nullFlavor="NA" /> <code codeSystem="local" code= "TRIMETH/SULF" displayName="Trimeth/Sulfa" /> <statusCode code= "completed" /> <effectiveTime value="" /> <value unit="" xsi:type="PQ" value="TRIMETH/SULF S" /> <interpretationCode codeSystem="local" code="S" /> <referenceRange> < observationRange> <text /> </observationRange> </referenceRange> </observation> </component> <component> <observation moodCode="EVN" classCode="OBS"> <templateId root= "06.25.840.1.480145.10.22.4.2" /> <id nullFlavor="NA" /> < code codeSystem="local" code="Ceftazidime" displayName="Ceftazidime" /> <statusCode code="completed" /> <effectiveTime value="" / > <value unit="" xsi:type="PQ" value="Ceftazidime S" /> < interpretationCode codeSystem="local" code="S" /> <referenceRange> <observationRange> <text /> </observationRange> </referenceRange> </observation> </component> </ organizer> </entry> <entry> <organizer moodCode="EVN" classCode="BATTERY"> <templateId root="16.840.1.525339.10..22.4.1" /> <id nullFlavor= "NA" /> <code codeSystem="local" code="BITA AND ENTEROCOCCUS SPECIES" displayName="BITA AND ENTEROCOCCUS SPECIES" /> <statusCode code="completed" /> <component> <observation moodCode="EVN" classCode="OBS"> <templateId root="16.840.1.701225.10...4.2" /> <id nullFlavor= "NA" /> <code codeSystem="local" code="Ampicillin" displayName= "Ampicillin" /> <statusCode code="completed" /> < effectiveTime value="" /> <value unit="" xsi:type="PQ" value="Ampicillin S" /> <interpretationCode codeSystem="local" code="S " /> <referenceRange> <observationRange> <text /> </observationRange> </referenceRange> </ observation> </component> <component> <observation moodCode= "EVN" classCode="OBS"> <templateId root="16.840.1.475434.10...4.2 " /> <id nullFlavor="NA" /> <code codeSystem="local" code= "LIZET" displayName="Benzylpenicillin (Pen G)" /> <statusCode code= "completed" /> <effectiveTime value="" /> <value unit="" xsi:type="PQ" value="LIZET S" /> <interpretationCode codeSystem= "local" code="S" /> <referenceRange> <observationRange> <text /> </observationRange> </referenceRange> </observation> </component> <component> <observation moodCode="EVN" classCode="OBS"> <templateId root= "16.840.1.399325.10.20.22.4.2" /> <id nullFlavor="NA" /> < code codeSystem="local" code="Levofloxacin" displayName="Levofloxacin" /> <statusCode code="completed" /> <effectiveTime value=" " /> <value unit="" xsi:type="PQ" value="Levofloxacin S" /> < interpretationCode codeSystem="local" code="S" /> <referenceRange> <observationRange> <text /> </observationRange> </referenceRange> </observation> </component> < component> <observation moodCode="EVN" classCode="OBS"> < templateId root="06.25.840.1.935981.10..4.2" /> <id nullFlavor="NA " /> <code codeSystem="local" code="Nitrofuranto" displayName= "Nitrofurantoin" /> <statusCode code="completed" /> < effectiveTime value="[id number]" /> <value unit="" xsi:type="PQ" value="Nitrofuranto S" /> <interpretationCode codeSystem="local" code= "S" /> <referenceRange> <observationRange> < text /> </observationRange> </referenceRange> </ observation> </component> <component> <observation moodCode= "EVN" classCode="OBS"> <templateId root="06.25.840.1.026497.10.20.22.4.2 " /> <id nullFlavor="NA" /> <code codeSystem="local" code= "TIGECYCLINE" displayName="Tigecycline" /> <statusCode code="completed " /> <effectiveTime value="[id number]" /> <value unit="" xsi :type="PQ" value="TIGECYCLINE S" /> <interpretationCode codeSystem= "local" code="S" /> <referenceRange> <observationRange> <text /> </observationRange> </referenceRange> </observation> </component> <component> <observation moodCode="EVN" classCode="OBS"> <templateId root= "2.16.840.1.705093.10.20.22.4.2" /> <id nullFlavor="NA" /> < code codeSystem="local" code="Ciprofloxaci" displayName="Ciprofloxacin" /> <statusCode code="completed" /> <effectiveTime value=" " /> <value unit="" xsi:type="PQ" value="Ciprofloxaci S" /> < interpretationCode codeSystem="local" code="S" /> <referenceRange> <observationRange> <text /> </observationRange> </referenceRange> </observation> </component> < component> <observation moodCode="EVN" classCode="OBS"> < templateId root="2.16.840.1.892656.10.20.22.4.2" /> <id nullFlavor="NA " /> <code codeSystem="local" code="Linezolid" displayName="Linezolid" /> <statusCode code="completed" /> <effectiveTime value= "[id number]" /> <value unit="" xsi:type="PQ" value="Linezolid S" /> <interpretationCode codeSystem="local" code="S" /> < referenceRange> <observationRange> <text /> < /observationRange> </referenceRange> </observation> </ component> <component> <observation moodCode="EVN" classCode="OBS"> <templateId root="16.840.1.255526.10..22.4.2" /> <id nullFlavor="NA" /> <code codeSystem="local" code="SYNERCID" displayName ="Synercid" /> <statusCode code="completed" /> <effectiveTime value="" /> <value unit="" xsi:type="PQ" value="SYNERCID R " /> <interpretationCode codeSystem="local" code="R" /> < referenceRange> <observationRange> <text /> < /observationRange> </referenceRange> </observation> </ component> <component> <observation moodCode="EVN" classCode="OBS"> <templateId root="06.25.840.1.884379.02.26.22.4.2" /> <id nullFlavor="NA" /> <code codeSystem="local" code="Tetracycline" displayName="Tetracycline" /> <statusCode code="completed" /> <effectiveTime value="" /> <value unit="" xsi:type="PQ" value="Tetracycline R" /> <interpretationCode codeSystem="local" code= "R" /> <referenceRange> <observationRange> < text /> </observationRange> </referenceRange> </ observation> </component> <component> <observation moodCode= "EVN" classCode="OBS"> <templateId root="06.25.840.1.980034.10...4.2 " /> <id nullFlavor="NA" /> <code codeSystem="local" code= "Vancomycin" displayName="Vancomycin" /> <statusCode code="completed" / > <effectiveTime value="" /> <value unit="" xsi: type="PQ" value="Vancomycin S" /> <interpretationCode codeSystem="local " code="S" /> <referenceRange> <observationRange> <text /> </observationRange> </referenceRange> </ observation> </component> </organizer> </entry> <entry> <organizer moodCode="EVN" classCode="BATTERY"> <templateId root= "06.25.840.1.343214.10..22.4.1" /> <id nullFlavor="NA" /> <code codeSystem="local" code="CMETPP" displayName="COMPREHENSIVE METABOLIC PANEL" /> <statusCode code="completed" /> <component> <observation moodCode="EVN" classCode="OBS"> <templateId root= "06.25.840.1.257311..22.4.2" /> <id nullFlavor="NA" /> < code codeSystem="local" code="K" displayName="POTASSIUM" /> < statusCode code="completed" /> <effectiveTime value="798255636182" /> <value unit="mmol/L" xsi:type="PQ" value="4.8" /> < referenceRange> <observationRange> <text>3.5-5.1</text> </observationRange> </referenceRange> </observation > </component> <component> <observation moodCode="EVN" classCode="OBS"> <templateId root="06.25.840.1.928439.22.4.2" /> <id nullFlavor="NA" /> <code codeSystem="local" code="CA" displayName="CALCIUM" /> <statusCode code="completed" /> < effectiveTime value="199862378036" /> <value unit="mg/dL" xsi:type="PQ " value="9.4" /> <referenceRange> <observationRange> <text>8.6-10.6</text> </observationRange> </ referenceRange> </observation> </component> <component> <observation moodCode="EVN" classCode="OBS"> <templateId root= "216.840.1.163885.10.4.2" /> <id nullFlavor="NA" /> < code codeSystem="local" code="GLUC" displayName="GLUCOSE" /> < statusCode code="completed" /> <effectiveTime value="876493260323" /> <value unit="mg/dL" xsi:type="PQ" value="210" /> < interpretationCode codeSystem="local" code="H" /> <referenceRange> <observationRange> <text>80-115</text> </ observationRange> </referenceRange> </observation> </ component> <component> <observation moodCode="EVN" classCode="OBS"> <templateId root="06.25.840.1.698544.02.26.22.4.2" /> <id nullFlavor="NA" /> <code codeSystem="local" code="BUN" displayName="BUN " /> <statusCode code="completed" /> <effectiveTime value= "612071024471" /> <value unit="mg/dL" xsi:type="PQ" value="21" /> <referenceRange> <observationRange> <text>8-22</ text> </observationRange> </referenceRange> </ observation> </component> <component> <observation moodCode= "EVN" classCode="OBS"> <templateId root="216.840.1.123740.02.26.22.4.2 " /> <id nullFlavor="NA" /> <code codeSystem="local" code= "CREA" displayName="CREATININE" /> <statusCode code="completed" /> <effectiveTime value="767214552663" /> <value unit="mg/dL" xsi: type="PQ" value="1.1" /> <referenceRange> <observationRange > <text>0.6-1.1</text> </observationRange> </ referenceRange> </observation> </component> <component> <observation moodCode="EVN" classCode="OBS"> <templateId root= "16.840.1.587569.10..4.2" /> <id nullFlavor="NA" /> < code codeSystem="local" code="NA" displayName="SODIUM" /> <statusCode code="completed" /> <effectiveTime value="008383850880" /> < value unit="mmol/L" xsi:type="PQ" value="141" /> <referenceRange> <observationRange> <text>136-145</text> </ observationRange> </referenceRange> </observation> </ component> <component> <observation moodCode="EVN" classCode="OBS"> <templateId root="840.1.668380...4.2" /> <id nullFlavor="NA" /> <code codeSystem="local" code="CL" displayName= "CHLORIDE" /> <statusCode code="completed" /> <effectiveTime value="287461979943" /> <value unit="mmol/L" xsi:type="PQ" value="104" /> <referenceRange> <observationRange> <text>98 -110</text> </observationRange> </referenceRange> </ observation> </component> <component> <observation moodCode= "EVN" classCode="OBS"> <templateId root="06.25.840.1.916084..20.22.4.2 " /> <id nullFlavor="NA" /> <code codeSystem="local" code="CO2 " displayName="CO2" /> <statusCode code="completed" /> < effectiveTime value="922776575607" /> <value unit="mmol/L" xsi:type="PQ " value="26" /> <referenceRange> <observationRange> <text>22-29</text> </observationRange> </ referenceRange> </observation> </component> <component> <observation moodCode="EVN" classCode="OBS"> <templateId root= "06.25.840.1.603369.10.4.2" /> <id nullFlavor="NA" /> < code codeSystem="local" code="GFR" displayName="GFR ESTIMATED NOT AFR/AM" /> <statusCode code="completed" /> <effectiveTime value= "714043563786" /> <value unit="" xsi:type="PQ" value="50" /> < referenceRange> <observationRange> <text /> < /observationRange> </referenceRange> </observation> </ component> <component> <observation moodCode="EVN" classCode="OBS"> <templateId root="06.25.840.1.531416.10.4.2" /> <id nullFlavor="NA" /> <code codeSystem="local" code="GFRAFR" displayName= "GFR ESTIMATED IF AFR/AM" /> <statusCode code="completed" /> < effectiveTime value="620427631340" /> <value unit="" xsi:type="PQ" value=">60" /> <referenceRange> <observationRange> <text /> </observationRange> </referenceRange> </observation> </component> <component> <observation moodCode="EVN" classCode="OBS"> <templateId root= "06.25.840.1.181179.10.4.2" /> <id nullFlavor="NA" /> < code codeSystem="local" code="ALT" displayName="ALT-SGPT" /> < statusCode code="completed" /> <effectiveTime value="365643938084" /> <value unit="U/L" xsi:type="PQ" value="29" /> <referenceRange > <observationRange> <text>0-55</text> </ observationRange> </referenceRange> </observation> </ component> <component> <observation moodCode="EVN" classCode="OBS"> <templateId root="16.840.1.460140.10..22.4.2" /> <id nullFlavor="NA" /> <code codeSystem="local" code="AST" displayName="AST -SGOT" /> <statusCode code="completed" /> <effectiveTime value ="512167251882" /> <value unit="U/L" xsi:type="PQ" value="27" /> <referenceRange> <observationRange> <text>5-34</text > </observationRange> </referenceRange> </observation > </component> <component> <observation moodCode="EVN" classCode="OBS"> <templateId root="16.840.1.013850.10.20.22.4.2" /> <id nullFlavor="NA" /> <code codeSystem="local" code="TP" displayName="TOTAL PROTEIN,SERUM" /> <statusCode code="completed" /> <effectiveTime value="705089614809" /> <value unit="g/dL" xsi: type="PQ" value="7.1" /> <referenceRange> <observationRange > <text>6-8.3</text> </observationRange> </ referenceRange> </observation> </component> <component> <observation moodCode="EVN" classCode="OBS"> <templateId root= "06.25.840.1.055227.02.26.22.4.2" /> <id nullFlavor="NA" /> < code codeSystem="local" code="ALB" displayName="ALBUMIN" /> < statusCode code="completed" /> <effectiveTime value="766655540723" /> <value unit="g/dL" xsi:type="PQ" value="4.0" /> < referenceRange> <observationRange> <text>3.6-5.3</text> </observationRange> </referenceRange> </observation > </component> <component> <observation moodCode="EVN" classCode="OBS"> <templateId root="06.25.840.1.961141.02.26.22.4.2" /> <id nullFlavor="NA" /> <code codeSystem="local" code="ALK" displayName="ALKALINE PHOSPHATASE" /> <statusCode code="completed" /> <effectiveTime value="205161612265" /> <value unit="U/L" xsi: type="PQ" value="77" /> <referenceRange> <observationRange> <text>40-150</text> </observationRange> </ referenceRange> </observation> </component> <component> <observation moodCode="EVN" classCode="OBS"> <templateId root= "06.25.840.1.314700.02.26.22.4.2" /> <id nullFlavor="NA" /> < code codeSystem="local" code="TBIL" displayName="TOTAL BILIRUBIN" /> < statusCode code="completed" /> <effectiveTime value="304292132377" /> <value unit="mg/dL" xsi:type="PQ" value="0.7" /> < referenceRange> <observationRange> <text>0.2-1.2</text> </observationRange> </referenceRange> </observation > </component> <component> <observation moodCode="EVN" classCode="OBS"> <templateId root="216.840.1.630503.10..22.4.2" /> <id nullFlavor="NA" /> <code codeSystem="local" code="BAL" displayName="ANION GAP" /> <statusCode code="completed" /> < effectiveTime value="" /> <value unit="" xsi:type="PQ" value="11" /> <referenceRange> <observationRange> <text>5-15</text> </observationRange> </referenceRange> </observation> </component> <component> <observation moodCode="EVN" classCode="OBS"> <templateId root= "216.840.1.069058.10...4.2" /> <id nullFlavor="NA" /> < code codeSystem="local" code="GLOBC" displayName="GLOBULIN, CALCULATED" /> <statusCode code="completed" /> <effectiveTime value=" " /> <value unit="g/dL" xsi:type="PQ" value="3.1" /> < referenceRange> <observationRange> <text /> < /observationRange> </referenceRange> </observation> </ component> <component> <observation moodCode="EVN" classCode="OBS"> <templateId root="16.840.1.806003.10..22.4.2" /> <id nullFlavor="NA" /> <code codeSystem="local" code="AGRATIO" displayName= "A/G RATIO" /> <statusCode code="completed" /> <effectiveTime value="" /> <value unit="ratio" xsi:type="PQ" value="1.3" / > <referenceRange> <observationRange> <text>1- 1.8</text> </observationRange> </referenceRange> </ observation> </component> </organizer> </entry> <entry> <organizer moodCode="EVN" classCode="BATTERY"> <templateId root= "216.840.1.495951.10..4.1" /> <id nullFlavor="NA" /> <code codeSystem="local" code="LIPRLX" displayName="LIPID PANEL W/REFLEX LDL" /> <statusCode code="completed" /> <component> <observation moodCode= "EVN" classCode="OBS"> <templateId root="216.840.1.631494.02.26.22.4.2 " /> <id nullFlavor="NA" /> <code codeSystem="local" code= "TRIG" displayName="TRIGLYCERIDES" /> <statusCode code="completed" /> <effectiveTime value="651982977442" /> <value unit="mg/dL" xsi :type="PQ" value="145" /> <referenceRange> <observationRange > <text>20-170</text> </observationRange> </ referenceRange> </observation> </component> <component> <observation moodCode="EVN" classCode="OBS"> <templateId root= "216.840.1.581790.02.26.22.4.2" /> <id nullFlavor="NA" /> < code codeSystem="local" code="CHOL" displayName="CHOLESTEROL" /> < statusCode code="completed" /> <effectiveTime value="112240710004" /> <value unit="mg/dL" xsi:type="PQ" value="147" /> < referenceRange> <observationRange> <text>140-200</text> </observationRange> </referenceRange> </observation > </component> <component> <observation moodCode="EVN" classCode="OBS"> <templateId root="840.1.841860.10.22.4.2" /> <id nullFlavor="NA" /> <code codeSystem="local" code="HDLC" displayName="HDL" /> <statusCode code="completed" /> < effectiveTime value="618838237312" /> <value unit="mg/dL" xsi:type="PQ " value="37" /> <referenceRange> <observationRange> <text>35-60</text> </observationRange> </ referenceRange> </observation> </component> <component> <observation moodCode="EVN" classCode="OBS"> <templateId root= "840.1.160010.02.26.22.4.2" /> <id nullFlavor="NA" /> < code codeSystem="local" code="LDLC" displayName="LDL" /> <statusCode code="completed" /> <effectiveTime value="706970709605" /> < value unit="mg/dL" xsi:type="PQ" value="81" /> <referenceRange> <observationRange> <text>60-130</text> </ observationRange> </referenceRange> </observation> </ component> </organizer> </entry> <entry> <organizer moodCode="EVN" classCode="BATTERY"> <templateId root="06.25.840.1.952252.1022.4.1" /> <id nullFlavor="NA" /> <code codeSystem="local" code="TSHR" displayName="TSH WITH REFLEX TO FREE T4" /> <statusCode code="completed" / > <component> <observation moodCode="EVN" classCode="OBS"> <templateId root="840.1.021816.02.26.22.4.2" /> <id nullFlavor="NA " /> <code codeSystem="local" code="TSH" displayName="TSH" /> <statusCode code="completed" /> <effectiveTime value="915415125195" /> <value unit="m[iU]/mL" xsi:type="PQ" value="1.91" /> < referenceRange> <observationRange> <text>0.35-4.90</text > </observationRange> </referenceRange> </observation > </component> </organizer> </entry> <entry> <organizer moodCode= "EVN" classCode="BATTERY"> <templateId root="216.840.1.062715.02.26.22.4.1 " /> <id nullFlavor="NA" /> <code codeSystem="local" code="MALCRT" displayName="MICROALBUMIN/CREATININE URINE" /> <statusCode code="completed " /> <component> <observation moodCode="EVN" classCode="OBS"> <templateId root="216.840.1.163118.02.26.22.4.2" /> <id nullFlavor ="NA" /> <code codeSystem="local" code="HRK" displayName="HOURS" /> <statusCode code="completed" /> <effectiveTime value= "799996654190" /> <value unit="" xsi:type="PQ" value="RANDOM" /> <referenceRange> <observationRange> <text /> </observationRange> </referenceRange> </observation> < /component> <component> <observation moodCode="EVN" classCode="OBS" > <templateId root="16.840.1.507770.02.26.22.4.2" /> <id nullFlavor="NA" /> <code codeSystem="local" code="JUSTIN" displayName= "VOLUME" /> <statusCode code="completed" /> <effectiveTime value="" /> <value unit="" xsi:type="PQ" value="RANDOM" /> <referenceRange> <observationRange> <text /> </observationRange> </referenceRange> </observation> </component> <component> <observation moodCode="EVN" classCode ="OBS"> <templateId root="06.25.840.1.682883.02.26.22.4.2" /> < id nullFlavor="NA" /> <code codeSystem="local" code="ALBM" displayName= "MICROALBUMIN, URINE, QUANT" /> <statusCode code="completed" /> <effectiveTime value="" /> <value unit="ug/mL" xsi:type= "PQ" value="18.0" /> <referenceRange> <observationRange> <text /> </observationRange> </referenceRange> </observation> </component> <component> <observation moodCode="EVN" classCode="OBS"> <templateId root= "840.1.686960.02.26.22.4.2" /> <id nullFlavor="NA" /> < code codeSystem="local" code="RUCRT" displayName="CREATININE, RANDOM URINE" /> <statusCode code="completed" /> <effectiveTime value= "" /> <value unit="mg/dL" xsi:type="PQ" value="100.9" /> <referenceRange> <observationRange> <text /> </observationRange> </referenceRange> </observation> </component> <component> <observation moodCode="EVN" classCode= "OBS"> <templateId root="06.25.840.1.483889.1022.4.2" /> < id nullFlavor="NA" /> <code codeSystem="local" code="ACCRS" displayName ="RANDOM ALB/CREAT" /> <statusCode code="completed" /> < effectiveTime value="" /> <value unit="ratio" xsi:type="PQ " value="17.8" /> <referenceRange> <observationRange> <text /> </observationRange> </referenceRange> </observation> </component> </organizer> </entry> <entry> < organizer moodCode="EVN" classCode="BATTERY"> <templateId root= "06.25.840.1.982990.10..22.4.1" /> <id nullFlavor="NA" /> <code codeSystem="local" code="CBC" displayName="CBC WITH DIFF" /> <statusCode code="completed" /> <component> <observation moodCode="EVN" classCode="OBS"> <templateId root="06.25.840.1.583347...4.2" /> <id nullFlavor="NA" /> <code codeSystem="local" code="WBC" displayName="WBC" /> <statusCode code="completed" /> < effectiveTime value="390151603965" /> <value unit="10*3/uL" xsi:type= "PQ" value="6.5" /> <referenceRange> <observationRange> <text>4.0-10.8</text> </observationRange> </ referenceRange> </observation> </component> <component> <observation moodCode="EVN" classCode="OBS"> <templateId root= "06.25.840.1.082034.1022.4.2" /> <id nullFlavor="NA" /> < code codeSystem="local" code="RBC" displayName="RBC" /> <statusCode code="completed" /> <effectiveTime value="" /> < value unit="10*6/uL" xsi:type="PQ" value="4.20" /> <referenceRange> <observationRange> <text>4.20-5.40</text> </ observationRange> </referenceRange> </observation> </ component> <component> <observation moodCode="EVN" classCode="OBS"> <templateId root="16.840.1.784823.102022.4.2" /> <id nullFlavor="NA" /> <code codeSystem="local" code="HGB" displayName="HGB " /> <statusCode code="completed" /> <effectiveTime value= "606880646353" /> <value unit="g/dL" xsi:type="PQ" value="13.5" /> <referenceRange> <observationRange> <text>12.0- 16.0</text> </observationRange> </referenceRange> </ observation> </component> <component> <observation moodCode= "EVN" classCode="OBS"> <templateId root="06.25.840.1.671622.1022.4.2 " /> <id nullFlavor="NA" /> <code codeSystem="local" code="HCT " displayName="HCT" /> <statusCode code="completed" /> < effectiveTime value="067965211197" /> <value unit="%" xsi:type="PQ " value="39.9" /> <referenceRange> <observationRange> <text>37-47</text> </observationRange> </ referenceRange> </observation> </component> <component> <observation moodCode="EVN" classCode="OBS"> <templateId root= "06.25.840.1.931284..2022.4.2" /> <id nullFlavor="NA" /> < code codeSystem="local" code="MCV" displayName="MCV" /> <statusCode code="completed" /> <effectiveTime value="801013310531" /> < value unit="fL" xsi:type="PQ" value="95" /> <referenceRange> <observationRange> <text>81-99</text> </ observationRange> </referenceRange> </observation> </ component> <component> <observation moodCode="EVN" classCode="OBS"> <templateId root="06.25.840.1.609446.10.20.22.4.2" /> <id nullFlavor="NA" /> <code codeSystem="local" code="MCH" displayName="MCH " /> <statusCode code="completed" /> <effectiveTime value= "729878607668" /> <value unit="pg" xsi:type="PQ" value="32" /> <referenceRange> <observationRange> <text>26-34</text > </observationRange> </referenceRange> </observation > </component> <component> <observation moodCode="EVN" classCode="OBS"> <templateId root="06.25.840.1.175230.10.20.22.4.2" /> <id nullFlavor="NA" /> <code codeSystem="local" code="MCHC" displayName="MCHC" /> <statusCode code="completed" /> < effectiveTime value="670894256733" /> <value unit="g/dL" xsi:type="PQ" value="34" /> <referenceRange> <observationRange> <text>31-37</text> </observationRange> </referenceRange > </observation> </component> <component> <observation moodCode="EVN" classCode="OBS"> <templateId root= "06.25.840.1.368242.02.26.22.4.2" /> <id nullFlavor="NA" /> < code codeSystem="local" code="PLT" displayName="PLATELET COUNT" /> < statusCode code="completed" /> <effectiveTime value="181684802134" /> <value unit="10*3/uL" xsi:type="PQ" value="263" /> < referenceRange> <observationRange> <text>150-400</text> </observationRange> </referenceRange> </observation > </component> <component> <observation moodCode="EVN" classCode="OBS"> <templateId root="2.16.840.1.433789.02.26.22.4.2" /> <id nullFlavor="NA" /> <code codeSystem="local" code="RDWCV" displayName="RDWCV" /> <statusCode code="completed" /> < effectiveTime value="949893868711" /> <value unit="%" xsi:type="PQ " value="13.9" /> <referenceRange> <observationRange> <text>11.5-14.5</text> </observationRange> </ referenceRange> </observation> </component> <component> <observation moodCode="EVN" classCode="OBS"> <templateId root= "2.16.840.1.578199.02.26.22.4.2" /> <id nullFlavor="NA" /> < code codeSystem="local" code="DTYP" displayName="DIFF TYPE" /> < statusCode code="completed" /> <effectiveTime value="996276535309" /> <value unit="" xsi:type="PQ" value="AUTOMATED DIFF" /> < referenceRange> <observationRange> <text /> < /observationRange> </referenceRange> </observation> </ component> <component> <observation moodCode="EVN" classCode="OBS"> <templateId root="216.840.1.298558.10..22.4.2" /> <id nullFlavor="NA" /> <code codeSystem="local" code="PNEUT" displayName= "NEUTROPHIL %" /> <statusCode code="completed" /> < effectiveTime value="286979673666" /> <value unit="%" xsi:type="PQ " value="64" /> <referenceRange> <observationRange> <text>36-66</text> </observationRange> </ referenceRange> </observation> </component> <component> <observation moodCode="EVN" classCode="OBS"> <templateId root= "16.840.1.832757.10..4.2" /> <id nullFlavor="NA" /> < code codeSystem="local" code="PLYMP" displayName="LYMPHOCYTE %" /> <statusCode code="completed" /> <effectiveTime value="145329843010" /> <value unit="%" xsi:type="PQ" value="24" /> < referenceRange> <observationRange> <text>24-44</text> </observationRange> </referenceRange> </observation> </component> <component> <observation moodCode="EVN" classCode= "OBS"> <templateId root="06.25.840.1.914128.10.20.22.4.2" /> < id nullFlavor="NA" /> <code codeSystem="local" code="PMONO" displayName ="MONOCYTE %" /> <statusCode code="completed" /> < effectiveTime value="762085343692" /> <value unit="%" xsi:type="PQ " value="8" /> <referenceRange> <observationRange> <text>1-10</text> </observationRange> </referenceRange > </observation> </component> <component> <observation moodCode="EVN" classCode="OBS"> <templateId root= "216.840.1.362769.10.4.2" /> <id nullFlavor="NA" /> < code codeSystem="local" code="PEOS" displayName="EOSINOPHIL %" /> < statusCode code="completed" /> <effectiveTime value="886444648941" /> <value unit="%" xsi:type="PQ" value="4" /> <referenceRange > <observationRange> <text>0-6</text> </ observationRange> </referenceRange> </observation> </ component> <component> <observation moodCode="EVN" classCode="OBS"> <templateId root="06.25.840.1.462881.02.26.22.4.2" /> <id nullFlavor="NA" /> <code codeSystem="local" code="PBASO" displayName= "BASOPHIL %" /> <statusCode code="completed" /> < effectiveTime value="383507206069" /> <value unit="%" xsi:type="PQ " value="1" /> <referenceRange> <observationRange> <text>0-2</text> </observationRange> </referenceRange> </observation> </component> <component> <observation moodCode="EVN" classCode="OBS"> <templateId root= "16.840.1.180462.02.26.22.4.2" /> <id nullFlavor="NA" /> < code codeSystem="local" code="ANEUT" displayName="ABS. NEUTROPHILS" /> <statusCode code="completed" /> <effectiveTime value="113510667112" /> <value unit="*" xsi:type="PQ" value="4.1" /> < referenceRange> <observationRange> <text>1.55-7.13</text > </observationRange> </referenceRange> </observation > </component> <component> <observation moodCode="EVN" classCode="OBS"> <templateId root="216.840.1.978925.10.22.4.2" /> <id nullFlavor="NA" /> <code codeSystem="local" code="ALYMP" displayName="ABS. LYMPHOCYTES" /> <statusCode code="completed" /> <effectiveTime value="898941724092" /> <value unit="" xsi: type="PQ" value="1.5" /> <referenceRange> <observationRange > <text>1.0-4.8</text> </observationRange> </ referenceRange> </observation> </component> <component> <observation moodCode="EVN" classCode="OBS"> <templateId root= "06.25.840.1.890415.02.26.22.4.2" /> <id nullFlavor="NA" /> < code codeSystem="local" code="AMONO" displayName="ABS. MONOCYTES" /> < statusCode code="completed" /> <effectiveTime value="532704427438" /> <value unit="10*uL" xsi:type="PQ" value="0.5" /> < referenceRange> <observationRange> <text>0.4-1.08</text > </observationRange> </referenceRange> </observation > </component> <component> <observation moodCode="EVN" classCode="OBS"> <templateId root="216.840.1.230898.10.2022.4.2" /> <id nullFlavor="NA" /> <code codeSystem="local" code="AEOS" displayName="ABS. EOSINOPHILS" /> <statusCode code="completed" /> <effectiveTime value="419768403529" /> <value unit="10*3/uL" xsi: type="PQ" value="0.3" /> <referenceRange> <observationRange > <text>0.0-0.65</text> </observationRange> </ referenceRange> </observation> </component> <component> <observation moodCode="EVN" classCode="OBS"> <templateId root= "2.16.840.1.132646...4.2" /> <id nullFlavor="NA" /> < code codeSystem="local" code="ABASO" displayName="ABS. BASOPHILS" /> < statusCode code="completed" /> <effectiveTime value="[id number]" /> <value unit="10/uL" xsi:type="PQ" value="0.1" /> < referenceRange> <observationRange> <text>0.0-0.11</text > </observationRange> </referenceRange> </observation > </component> <component> <observation moodCode="EVN" classCode="OBS"> <templateId root="2.16.840.1.277535.02.26.22.4.2" /> <id nullFlavor="NA" /> <code codeSystem="local" code="ANRBC" displayName="ABSOLUTE NUCLEATED RBC" /> <statusCode code="completed" / > <effectiveTime value="[id number]" /> <value unit="10*3/uL " xsi:type="PQ" value="0.10" /> <referenceRange> < observationRange> <text /> </observationRange> </referenceRange> </observation> </component> </organizer> </ entry> <entry> <organizer moodCode="EVN" classCode="BATTERY"> < templateId root="06.25.840.1.291414.10..22.4.1" /> <id nullFlavor="NA" /> <code codeSystem="local" code="HBA1C" displayName="HEMOGLOBIN A1C" /> <statusCode code="completed" /> <component> <observation moodCode= "EVN" classCode="OBS"> <templateId root="06.25.840.1.617995.10...4.2 " /> <id nullFlavor="NA" /> <code codeSystem="local" code= "HBA1CC" displayName="HEMOGLOBIN A1C" /> <statusCode code="completed" / > <effectiveTime value="884097176498" /> <value unit="%" xsi:type="PQ" value="8.4" /> <interpretationCode codeSystem="local" code="H" /> <referenceRange> <observationRange> <text><5.6</text> </observationRange> </referenceRange > </observation> </component> <component> <observation moodCode="EVN" classCode="OBS"> <templateId root= "06.25.840.1.500275.10..22.4.2" /> <id nullFlavor="NA" /> < code codeSystem="local" code="EAG" displayName="ESTIMATED AVERAGE GLUCOSE" /> <statusCode code="completed" /> <effectiveTime value= "706114779187" /> <value unit="mg/dL" xsi:type="PQ" value="194" /> <referenceRange> <observationRange> <text /> </observationRange> </referenceRange> </observation> </component> </organizer> </entry> <entry> <organizer moodCode="EVN" classCode="BATTERY"> <templateId root="16.840.1.540251.10..4.1" /> <id nullFlavor="NA" /> <code codeSystem="local" code="VITD25" displayName="VITAMIN D 25-HYDROXY" /> <statusCode code="completed" /> <component> <observation moodCode="EVN" classCode="OBS"> < templateId root="06.25.840.1.100993.02.26.22.4.2" /> <id nullFlavor="NA " /> <code codeSystem="local" code="VITD25" displayName="VITAMIN D (25- OH)" /> <statusCode code="completed" /> <effectiveTime value= "763329747924" /> <value unit="ng/mL" xsi:type="PQ" value="23.4" /> <referenceRange> <observationRange> <text /> </observationRange> </referenceRange> </observation> </component> </organizer> </entry> <entry> <organizer moodCode="EVN" classCode="BATTERY"> <templateId root="06.25.840.1.843609.02.26.22.4.1" /> <id nullFlavor="NA" /> <code codeSystem="local" code="GLUMON" displayName="GLUCOSE (POC)" /> <statusCode code="completed" /> < component> <observation moodCode="EVN" classCode="OBS"> < templateId root="06.25.840.1.587677.10..4.2" /> <id nullFlavor="NA " /> <code codeSystem="local" code="GLUMON" displayName="GLUCOSE (POC) " /> <statusCode code="completed" /> <effectiveTime value= "920610268357" /> <value unit="mg/dL" xsi:type="PQ" value="165" /> <interpretationCode codeSystem="local" code="*" /> < referenceRange> <observationRange> <text>70-99</text> </observationRange> </referenceRange> </observation> </component> </organizer> </entry> <entry> <organizer moodCode="EVN " classCode="BATTERY"> <templateId root="2.16.840.1.510262.10.20.22.4.1" / > <id nullFlavor="NA" /> <code codeSystem="local" code="MRSAS" displayName="MRSA SURVEILLANCE SCREEN" /> <statusCode code="completed" /> <component> <observation moodCode="EVN" classCode="OBS"> < templateId root="2.16.840.1.345644.10..22.4.2" /> <id nullFlavor="NA " /> <code codeSystem="local" code="MB" displayName="Microbiology" /> <statusCode code="completed" /> <effectiveTime value= "859043341961" /> <value xsi:type="ST" value="<pre><b>MRSA SURVEILLANCE SCREEN</b> See BelowMRSA SURVEILLANCE SCREEN(F) Asa Date/Time: 03/30/2015 06:00 Bandar Date/Time: 03/31/2015 07: 48SOURCE: ANTERIOR NARESSPEC DESC: NNO METHICILLIN RESISTANT [facility] [place] [address]</pre>" /> <referenceRange> <observationRange> <text /> </observationRange> </referenceRange> </observation> </ component> </organizer> </entry> <entry> <organizer moodCode="EVN" classCode="BATTERY"> <templateId root="2.16.840.1.885793.10..22.4.1" /> <id nullFlavor="NA" /> <code codeSystem="local" code="GLUMON" displayName="GLUCOSE (POC)" /> <statusCode code="completed" /> < component> <observation moodCode="EVN" classCode="OBS"> < templateId root="216.840.1.504518.10..4.2" /> <id nullFlavor="NA " /> <code codeSystem="local" code="GLUMON" displayName="GLUCOSE (POC) " /> <statusCode code="completed" /> <effectiveTime value= "016156772920" /> <value unit="mg/dL" xsi:type="PQ" value="138" /> <interpretationCode codeSystem="local" code="*" /> < referenceRange> <observationRange> <text>70-99</text> </observationRange> </referenceRange> </observation> </component> </organizer> </entry> <entry> <organizer moodCode="EVN " classCode="BATTERY"> <templateId root="16.840.1.276608.10..4.1" / > <id nullFlavor="NA" /> <code codeSystem="local" code="GLUMON" displayName="GLUCOSE (POC)" /> <statusCode code="completed" /> < component> <observation moodCode="EVN" classCode="OBS"> < templateId root="16.840.1.810125.10.22.4.2" /> <id nullFlavor="NA " /> <code codeSystem="local" code="GLUMON" displayName="GLUCOSE (POC) " /> <statusCode code="completed" /> <effectiveTime value= "686340358145" /> <value unit="mg/dL" xsi:type="PQ" value="191" /> <interpretationCode codeSystem="local" code="*" /> < referenceRange> <observationRange> <text>70-99</text> </observationRange> </referenceRange> </observation> </component> </organizer> </entry> <entry> <organizer moodCode="EVN " classCode="BATTERY"> <templateId root="840.1.587868.10..22.4.1" / > <id nullFlavor="NA" /> <code codeSystem="local" code="GLUMON" displayName="GLUCOSE (POC)" /> <statusCode code="completed" /> < component> <observation moodCode="EVN" classCode="OBS"> < templateId root="840.1.098728...4.2" /> <id nullFlavor="NA " /> <code codeSystem="local" code="GLUMON" displayName="GLUCOSE (POC) " /> <statusCode code="completed" /> <effectiveTime value= "464351411445" /> <value unit="mg/dL" xsi:type="PQ" value="207" /> <interpretationCode codeSystem="local" code="*" /> < referenceRange> <observationRange> <text>70-99</text> </observationRange> </referenceRange> </observation> </component> </organizer> </entry> <entry> <organizer moodCode="EVN " classCode="BATTERY"> <templateId root="840.1.878882.02.26.22.4.1" / > <id nullFlavor="NA" /> <code codeSystem="local" code="GLUMON" displayName="GLUCOSE (POC)" /> <statusCode code="completed" /> < component> <observation moodCode="EVN" classCode="OBS"> < templateId root="840.1.789471.10..22.4.2" /> <id nullFlavor="NA " /> <code codeSystem="local" code="GLUMON" displayName="GLUCOSE (POC) " /> <statusCode code="completed" /> <effectiveTime value= "633726970657" /> <value unit="mg/dL" xsi:type="PQ" value="176" /> <interpretationCode codeSystem="local" code="*" /> < referenceRange> <observationRange> <text>70-99</text> </observationRange> </referenceRange> </observation> </component> </organizer> </entry> <entry> <organizer moodCode="EVN " classCode="BATTERY"> <templateId root="216.840.1.707049.10..22.4.1" / > <id nullFlavor="NA" /> <code codeSystem="local" code="GLUMON" displayName="GLUCOSE (POC)" /> <statusCode code="completed" /> < component> <observation moodCode="EVN" classCode="OBS"> < templateId root="216.840.1.403530.10..22.4.2" /> <id nullFlavor="NA " /> <code codeSystem="local" code="GLUMON" displayName="GLUCOSE (POC) " /> <statusCode code="completed" /> <effectiveTime value= "040026455171" /> <value unit="mg/dL" xsi:type="PQ" value="158" /> <interpretationCode codeSystem="local" code="*" /> < referenceRange> <observationRange> <text>70-99</text> </observationRange> </referenceRange> </observation> </component> </organizer> </entry> <entry> <organizer moodCode="EVN " classCode="BATTERY"> <templateId root="216.840.1.455537.10..22.4.1" / > <id nullFlavor="NA" /> <code codeSystem="local" code="PT" displayName="PROTHROMBIN TIME WITH INR" /> <statusCode code="completed" /> <component> <observation moodCode="EVN" classCode="OBS"> < templateId root="16.840.1.796409.10..22.4.2" /> <id nullFlavor="NA " /> <code codeSystem="local" code="INRX" displayName="INTERNATIONAL NORMAL RATIO" /> <statusCode code="completed" /> < effectiveTime value="" /> <value unit="" xsi:type="PQ" value="0.9" /> <referenceRange> <observationRange> <text>0.9-1.1</text> </observationRange> </ referenceRange> </observation> </component> <component> <observation moodCode="EVN" classCode="OBS"> <templateId root= "06.25.840.1.795673.10..4.2" /> <id nullFlavor="NA" /> < code codeSystem="local" code="PTPAT" displayName="PROTHROMBIN TIME" /> <statusCode code="completed" /> <effectiveTime value="" /> <value unit="sec" xsi:type="PQ" value="10.3" /> < referenceRange> <observationRange> <text>9.3-12.2</text > </observationRange> </referenceRange> </observation > </component> </organizer> </entry> <entry> <organizer moodCode= "EVN" classCode="BATTERY"> <templateId root="06.25.840.1.567526.10.20.22.4.1 " /> <id nullFlavor="NA" /> <code codeSystem="local" code="PTT" displayName="PARTIAL THROMBOPLASTIN TIME" /> <statusCode code="completed" / > <component> <observation moodCode="EVN" classCode="OBS"> <templateId root="216.840.1.038630.10..22.4.2" /> <id nullFlavor="NA " /> <code codeSystem="local" code="PTT" displayName="PARTIAL THROMBOPLASTIN TIME" /> <statusCode code="completed" /> < effectiveTime value="295848917823" /> <value unit="sec" xsi:type="PQ" value="30" /> <referenceRange> <observationRange> <text>23-39</text> </observationRange> </referenceRange > </observation> </component> </organizer> </entry> <entry> <organizer moodCode="EVN" classCode="BATTERY"> <templateId root= "2.16.840.1.876118.10..22.4.1" /> <id nullFlavor="NA" /> <code codeSystem="local" code="CBCD" displayName="CBC W/DIFF" /> <statusCode code ="completed" /> <component> <observation moodCode="EVN" classCode= "OBS"> <templateId root="2.16.840.1.164861.10.20.22.4.2" /> < id nullFlavor="NA" /> <code codeSystem="local" code="BA#" displayName= "BASOPHIL #" /> <statusCode code="completed" /> < effectiveTime value="375911361979" /> <value unit="k/cumm" xsi:type="PQ " value="0.0" /> <referenceRange> <observationRange> <text>0.0-0.2</text> </observationRange> </ referenceRange> </observation> </component> <component> <observation moodCode="EVN" classCode="OBS"> <templateId root= "16.840.1.201702.10.20.22.4.2" /> <id nullFlavor="NA" /> < code codeSystem="local" code="BA%" displayName="BASOPHIL %" /> <statusCode code="completed" /> <effectiveTime value="" /> <value unit="%" xsi:type="PQ" value="1" /> < referenceRange> <observationRange> <text>0-1</text> </observationRange> </referenceRange> </observation> </component> <component> <observation moodCode="EVN" classCode= "OBS"> <templateId root="06.25.840.1.154962.10.22.4.2" /> < id nullFlavor="NA" /> <code codeSystem="local" code="EO#" displayName= "EOSINOPHIL #" /> <statusCode code="completed" /> < effectiveTime value="" /> <value unit="k/cumm" xsi:type="PQ " value="0.3" /> <referenceRange> <observationRange> <text>0.1-0.5</text> </observationRange> </ referenceRange> </observation> </component> <component> <observation moodCode="EVN" classCode="OBS"> <templateId root= "06.25.840.1.542775.10.20.22.4.2" /> <id nullFlavor="NA" /> < code codeSystem="local" code="EO%" displayName="EOSINOPHIL %" /> <statusCode code="completed" /> <effectiveTime value="" /> <value unit="%" xsi:type="PQ" value="4" /> < referenceRange> <observationRange> <text>2-4</text> </observationRange> </referenceRange> </observation> </component> <component> <observation moodCode="EVN" classCode= "OBS"> <templateId root="06.25.840.1.763680.02.26.22.4.2" /> < id nullFlavor="NA" /> <code codeSystem="local" code="GR#" displayName= "GRANULOCYTE #" /> <statusCode code="completed" /> < effectiveTime value="" /> <value unit="k/cumm" xsi:type="PQ " value="4.2" /> <referenceRange> <observationRange> <text>2.0-9.0</text> </observationRange> </ referenceRange> </observation> </component> <component> <observation moodCode="EVN" classCode="OBS"> <templateId root= "06.25.840.1.577186.02.26.22.4.2" /> <id nullFlavor="NA" /> < code codeSystem="local" code="GR%" displayName="GRANULOCYTE %" /> <statusCode code="completed" /> <effectiveTime value=" " /> <value unit="%" xsi:type="PQ" value="57" /> < referenceRange> <observationRange> <text>50-75</text> </observationRange> </referenceRange> </observation> </component> <component> <observation moodCode="EVN" classCode= "OBS"> <templateId root="06.25.840.1.305166.02.26.22.4.2" /> < id nullFlavor="NA" /> <code codeSystem="local" code="LY#" displayName= "LYMPHOCYTE #" /> <statusCode code="completed" /> < effectiveTime value="" /> <value unit="k/cumm" xsi:type="PQ " value="2.1" /> <referenceRange> <observationRange> <text>1.0-4.0</text> </observationRange> </ referenceRange> </observation> </component> <component> <observation moodCode="EVN" classCode="OBS"> <templateId root= "06.25.840.1.036259.1022.4.2" /> <id nullFlavor="NA" /> < code codeSystem="local" code="LY%" displayName="LYMPHOCYTE %" /> <statusCode code="completed" /> <effectiveTime value="" /> <value unit="%" xsi:type="PQ" value="29" /> < referenceRange> <observationRange> <text>20-30</text> </observationRange> </referenceRange> </observation> </component> <component> <observation moodCode="EVN" classCode= "OBS"> <templateId root="06.25.840.1.141615.10.4.2" /> < id nullFlavor="NA" /> <code codeSystem="local" code="MCH" displayName= "MEAN CELL HGB" /> <statusCode code="completed" /> < effectiveTime value="" /> <value unit="pg" xsi:type="PQ" value="30.0" /> <referenceRange> <observationRange> <text>27.0-33.0</text> </observationRange> </ referenceRange> </observation> </component> <component> <observation moodCode="EVN" classCode="OBS"> <templateId root= "06.25.840.1.436852.10.2022.4.2" /> <id nullFlavor="NA" /> < code codeSystem="local" code="MCHC" displayName="MEAN CELL HGB CONCENTRATION" / > <statusCode code="completed" /> <effectiveTime value= "" /> <value unit="g/dL" xsi:type="PQ" value="32.1" /> <referenceRange> <observationRange> <text>32.0- 37.0</text> </observationRange> </referenceRange> </ observation> </component> <component> <observation moodCode= "EVN" classCode="OBS"> <templateId root="216.840.1.689610.10.20.22.4.2 " /> <id nullFlavor="NA" /> <code codeSystem="local" code="MCV " displayName="MEAN CELL VOLUME" /> <statusCode code="completed" /> <effectiveTime value="" /> <value unit="fl" xsi:type ="PQ" value="93.3" /> <referenceRange> <observationRange> <text>80.0-100.0</text> </observationRange> </ referenceRange> </observation> </component> <component> <observation moodCode="EVN" classCode="OBS"> <templateId root= "16.840.1.920786.10.20.22.4.2" /> <id nullFlavor="NA" /> < code codeSystem="local" code="MO#" displayName="MONOCYTE #" /> < statusCode code="completed" /> <effectiveTime value="" /> <value unit="k/cumm" xsi:type="PQ" value="0.7" /> < referenceRange> <observationRange> <text>0.1-1.0</text> </observationRange> </referenceRange> </observation > </component> <component> <observation moodCode="EVN" classCode="OBS"> <templateId root="216.840.1.275575.10.20.22.4.2" /> <id nullFlavor="NA" /> <code codeSystem="local" code="MO% " displayName="MONOCYTE %" /> <statusCode code="completed" /> <effectiveTime value="" /> <value unit="%" xsi: type="PQ" value="9" /> <interpretationCode codeSystem="local" code="*" /> <referenceRange> <observationRange> <text>4- 6</text> </observationRange> </referenceRange> </ observation> </component> <component> <observation moodCode= "EVN" classCode="OBS"> <templateId root="16.840.1.538549.10.22.4.2 " /> <id nullFlavor="NA" /> <code codeSystem="local" code="RBC " displayName="RED BLOOD CELL" /> <statusCode code="completed" /> <effectiveTime value="" /> <value unit="m/cumm" xsi: type="PQ" value="4.47" /> <referenceRange> <observationRange > <text>4.00-6.00</text> </observationRange> </ referenceRange> </observation> </component> <component> <observation moodCode="EVN" classCode="OBS"> <templateId root= "16.840.1.869697.10.20.22.4.2" /> <id nullFlavor="NA" /> < code codeSystem="local" code="RDW" displayName="RED CELL DISTRIBUTION WIDTH" /> <statusCode code="completed" /> <effectiveTime value= "" /> <value unit="%" xsi:type="PQ" value="13.9" /> <referenceRange> <observationRange> <text>11.0- 15.6</text> </observationRange> </referenceRange> </ observation> </component> <component> <observation moodCode= "EVN" classCode="OBS"> <templateId root="216.840.1.795982.10.20.22.4.2 " /> <id nullFlavor="NA" /> <code codeSystem="local" code="WBC " displayName="WHITE BLOOD CELL" /> <statusCode code="completed" /> <effectiveTime value="" /> <value unit="k/cumm" xsi: type="PQ" value="7.4" /> <referenceRange> <observationRange > <text>5.0-10.0</text> </observationRange> </ referenceRange> </observation> </component> <component> <observation moodCode="EVN" classCode="OBS"> <templateId root= "06.25.840.1.636821.10.20.22.4.2" /> <id nullFlavor="NA" /> < code codeSystem="local" code="HGBT" displayName="HEMOGLOBIN" /> < statusCode code="completed" /> <effectiveTime value="" /> <value unit="gm/dL" xsi:type="PQ" value="13.4" /> < referenceRange> <observationRange> <text>12.0-16.0</text > </observationRange> </referenceRange> </observation > </component> <component> <observation moodCode="EVN" classCode="OBS"> <templateId root="06.25.840.1.743877.10.20.22.4.2" /> <id nullFlavor="NA" /> <code codeSystem="local" code="HCTT" displayName="HEMATOCRIT" /> <statusCode code="completed" /> < effectiveTime value="" /> <value unit="%" xsi:type="PQ " value="41.7" /> <referenceRange> <observationRange> <text>37.0-47.0</text> </observationRange> </ referenceRange> </observation> </component> <component> <observation moodCode="EVN" classCode="OBS"> <templateId root= "840.1.254060.02.26.22.4.2" /> <id nullFlavor="NA" /> < code codeSystem="local" code="PLT" displayName="PLATELET COUNT" /> < statusCode code="completed" /> <effectiveTime value="" /> <value unit="k/cumm" xsi:type="PQ" value="233" /> < referenceRange> <observationRange> <text>150-400</text> </observationRange> </referenceRange> </observation > </component> </organizer> </entry> <entry> <organizer moodCode= "EVN" classCode="BATTERY"> <templateId root="840.1.744305.02.26.22.4.1 " /> <id nullFlavor="NA" /> <code codeSystem="local" code="METABC" displayName="METABOLIC PANEL, COMPREHN" /> <statusCode code="completed" /> <component> <observation moodCode="EVN" classCode="OBS"> < templateId root="840.1.895851.02.26.22.4.2" /> <id nullFlavor="NA " /> <code codeSystem="local" code="K" displayName="POTASSIUM" /> <statusCode code="completed" /> <effectiveTime value="354934781358 " /> <value unit="mmol/L" xsi:type="PQ" value="3.9" /> < referenceRange> <observationRange> <text>3.5-5.3</text> </observationRange> </referenceRange> </observation > </component> <component> <observation moodCode="EVN" classCode="OBS"> <templateId root="06.25.840.1.028347.10...4.2" /> <id nullFlavor="NA" /> <code codeSystem="local" code="eGFR" displayName="EST GFR (MDRD)" /> <statusCode code="completed" /> <effectiveTime value="617100850344" /> <value unit="mL/min" xsi:type ="PQ" value="45" /> <interpretationCode codeSystem="local" code="*" /> <referenceRange> <observationRange> <text>&gt ; 59</text> </observationRange> </referenceRange> </ observation> </component> <component> <observation moodCode= "EVN" classCode="OBS"> <templateId root="840.1.656350.02.26.22.4.2 " /> <id nullFlavor="NA" /> <code codeSystem="local" code="GAP " displayName="ANION GAP" /> <statusCode code="completed" /> < effectiveTime value="730520577612" /> <value unit="mmol/L" xsi:type="PQ " value="6" /> <referenceRange> <observationRange> <text>5-15</text> </observationRange> </referenceRange > </observation> </component> <component> <observation moodCode="EVN" classCode="OBS"> <templateId root= "06.25.840.1.695395.10..22.4.2" /> <id nullFlavor="NA" /> < code codeSystem="local" code="eCrCl" displayName="EST CrCl (CG)" /> < statusCode code="completed" /> <effectiveTime value="973732537246" /> <value unit="mL/min" xsi:type="PQ" value="57" /> < interpretationCode codeSystem="local" code="*" /> <referenceRange> <observationRange> <text>> 59</text> </ observationRange> </referenceRange> </observation> </ component> <component> <observation moodCode="EVN" classCode="OBS"> <templateId root="2.16.840.1.312780.10..22.4.2" /> <id nullFlavor="NA" /> <code codeSystem="local" code="GLU" displayName= "GLUCOSE" /> <statusCode code="completed" /> <effectiveTime value="757744149990" /> <value unit="mg/dL" xsi:type="PQ" value="167" / > <interpretationCode codeSystem="local" code="*" /> < referenceRange> <observationRange> <text>70-99</text> </observationRange> </referenceRange> </observation> </component> <component> <observation moodCode="EVN" classCode= "OBS"> <templateId root="2.16.840.1.835693.10..22.4.2" /> < id nullFlavor="NA" /> <code codeSystem="local" code="CA" displayName= "CALCIUM" /> <statusCode code="completed" /> <effectiveTime value="119801350942" /> <value unit="mg/dL" xsi:type="PQ" value="8.4" / > <interpretationCode codeSystem="local" code="*" /> < referenceRange> <observationRange> <text>8.5-10.1</text > </observationRange> </referenceRange> </observation > </component> <component> <observation moodCode="EVN" classCode="OBS"> <templateId root="216.840.1.877593.02.26.22.4.2" /> <id nullFlavor="NA" /> <code codeSystem="local" code="BUN" displayName="BLOOD UREA NITROGEN" /> <statusCode code="completed" /> <effectiveTime value="810112544795" /> <value unit="mg/dL" xsi: type="PQ" value="21" /> <interpretationCode codeSystem="local" code="* " /> <referenceRange> <observationRange> <text> 7-20</text> </observationRange> </referenceRange> </ observation> </component> <component> <observation moodCode= "EVN" classCode="OBS"> <templateId root="06.25.840.1.663934.02.26.224.2 " /> <id nullFlavor="NA" /> <code codeSystem="local" code= "CREAT" displayName="CREATININE" /> <statusCode code="completed" /> <effectiveTime value="442164416852" /> <value unit="mg/dL" xsi: type="PQ" value="1.2" /> <interpretationCode codeSystem="local" code="* " /> <referenceRange> <observationRange> <text> 0.6-1.0</text> </observationRange> </referenceRange> </observation> </component> <component> <observation moodCode= "EVN" classCode="OBS"> <templateId root="16.840.1.861364.02.26.22.4.2 " /> <id nullFlavor="NA" /> <code codeSystem="local" code="NA " displayName="SODIUM" /> <statusCode code="completed" /> < effectiveTime value="215490853049" /> <value unit="mmol/L" xsi:type="PQ " value="139" /> <referenceRange> <observationRange> <text>135-148</text> </observationRange> </ referenceRange> </observation> </component> <component> <observation moodCode="EVN" classCode="OBS"> <templateId root= "216.840.1.948209.10..22.4.2" /> <id nullFlavor="NA" /> < code codeSystem="local" code="CL" displayName="CHLORIDE" /> < statusCode code="completed" /> <effectiveTime value="669387439681" /> <value unit="mmol/L" xsi:type="PQ" value="108" /> < referenceRange> <observationRange> <text>98-110</text> </observationRange> </referenceRange> </observation> </component> <component> <observation moodCode="EVN" classCode ="OBS"> <templateId root="06.25.840.1.814016...4.2" /> < id nullFlavor="NA" /> <code codeSystem="local" code="AST" displayName= "AST/SGOT" /> <statusCode code="completed" /> <effectiveTime value="[id number]" /> <value unit="Units/L" xsi:type="PQ" value="30" /> <referenceRange> <observationRange> <text>10 -37</text> </observationRange> </referenceRange> </ observation> </component> <component> <observation moodCode= "EVN" classCode="OBS"> <templateId root="[id number] " /> <id nullFlavor="NA" /> <code codeSystem="local" code="ALT " displayName="ALT/SGPT" /> <statusCode code="completed" /> < effectiveTime value="196251653350" /> <value unit="Units/L" xsi:type= "PQ" value="35" /> <referenceRange> <observationRange> <text>< 66</text> </observationRange> </ referenceRange> </observation> </component> <component> <observation moodCode="EVN" classCode="OBS"> <templateId root= "16.840.1.139391.10.22.4.2" /> <id nullFlavor="NA" /> < code codeSystem="local" code="CO2" displayName="CARBON DIOXIDE" /> < statusCode code="completed" /> <effectiveTime value="901390721964" /> <value unit="mmol/L" xsi:type="PQ" value="25" /> < referenceRange> <observationRange> <text>21-32</text> </observationRange> </referenceRange> </observation> </component> <component> <observation moodCode="EVN" classCode= "OBS"> <templateId root="06.25.840.1.814112.10.22.4.2" /> < id nullFlavor="NA" /> <code codeSystem="local" code="TP" displayName= "TOTAL PROTEIN" /> <statusCode code="completed" /> < effectiveTime value="163582191670" /> <value unit="gm/dL" xsi:type="PQ " value="7.5" /> <referenceRange> <observationRange> <text>6.4-8.2</text> </observationRange> </ referenceRange> </observation> </component> <component> <observation moodCode="EVN" classCode="OBS"> <templateId root= "06.25.840.1.239862.02.26.22.4.2" /> <id nullFlavor="NA" /> < code codeSystem="local" code="ALB" displayName="ALBUMIN" /> < statusCode code="completed" /> <effectiveTime value="029721950394" /> <value unit="gm/dL" xsi:type="PQ" value="3.5" /> < referenceRange> <observationRange> <text>3.4-5.0</text> </observationRange> </referenceRange> </observation > </component> <component> <observation moodCode="EVN" classCode="OBS"> <templateId root="2.16.840.1.180843.02.26.22.4.2" /> <id nullFlavor="NA" /> <code codeSystem="local" code="BILTOT" displayName="BILI TOTAL" /> <statusCode code="completed" /> < effectiveTime value="203047687581" /> <value unit="mg/dL" xsi:type="PQ " value="0.5" /> <referenceRange> <observationRange> <text>0.0-1.0</text> </observationRange> </ referenceRange> </observation> </component> <component> <observation moodCode="EVN" classCode="OBS"> <templateId root= "2.16.840.1.002385.02.26.22.4.2" /> <id nullFlavor="NA" /> < code codeSystem="local" code="ALKP" displayName="ALKALINE PHOSPHATASE TOTAL" /> <statusCode code="completed" /> <effectiveTime value= "287258664823" /> <value unit="IU/L" xsi:type="PQ" value="78" /> <referenceRange> <observationRange> <text>45-117</ text> </observationRange> </referenceRange> </ observation> </component> </organizer> </entry> <entry> <organizer moodCode="EVN" classCode="BATTERY"> <templateId root= "06.25.840.1.872088.02.26.22.4.1" /> <id nullFlavor="NA" /> <code codeSystem="local" code="GLUMON" displayName="GLUCOSE (POC)" /> < statusCode code="completed" /> <component> <observation moodCode= "EVN" classCode="OBS"> <templateId root="840.1.193438.02.26.22.4.2 " /> <id nullFlavor="NA" /> <code codeSystem="local" code= "GLUMON" displayName="GLUCOSE (POC)" /> <statusCode code="completed" / > <effectiveTime value="055414550725" /> <value unit="mg/dL" xsi:type="PQ" value="186" /> <interpretationCode codeSystem="local" code="*" /> <referenceRange> <observationRange> <text>70-99</text> </observationRange> </referenceRange> </observation> </component> </organizer> </entry> <entry> < organizer moodCode="EVN" classCode="BATTERY"> <templateId root= "840.1.567510.02.26.22.4.1" /> <id nullFlavor="NA" /> <code codeSystem="local" code="GLUMON" displayName="GLUCOSE (POC)" /> < statusCode code="completed" /> <component> <observation moodCode= "EVN" classCode="OBS"> <templateId root="06.25.840.1.145839.1022.4.2 " /> <id nullFlavor="NA" /> <code codeSystem="local" code= "GLUMON" displayName="GLUCOSE (POC)" /> <statusCode code="completed" / > <effectiveTime value="" /> <value unit="mg/dL" xsi:type="PQ" value="196" /> <interpretationCode codeSystem="local" code="*" /> <referenceRange> <observationRange> <text>70-99</text> </observationRange> </referenceRange> </observation> </component> </organizer> </entry> <entry> < organizer moodCode="EVN" classCode="BATTERY"> <templateId root= "216.840.1.413541.10.20.22.4.1" /> <id nullFlavor="NA" /> <code codeSystem="local" code="GLUMON" displayName="GLUCOSE (POC)" /> < statusCode code="completed" /> <component> <observation moodCode= "EVN" classCode="OBS"> <templateId root="216.840.1.090166.10.20.22.4.2 " /> <id nullFlavor="NA" /> <code codeSystem="local" code= "GLUMON" displayName="GLUCOSE (POC)" /> <statusCode code="completed" / > <effectiveTime value="" /> <value unit="mg/dL" xsi:type="PQ" value="195" /> <interpretationCode codeSystem="local" code="*" /> <referenceRange> <observationRange> <text>70-99</text> </observationRange> </referenceRange> </observation> </component> </organizer> </entry> <entry> < organizer moodCode="EVN" classCode="BATTERY"> <templateId root= "216.840.1.510667.10.20.22.4.1" /> <id nullFlavor="NA" /> <code codeSystem="local" code="GLUMON" displayName="GLUCOSE (POC)" /> < statusCode code="completed" /> <component> <observation moodCode= "EVN" classCode="OBS"> <templateId root="16.840.1.619842.1022.4.2 " /> <id nullFlavor="NA" /> <code codeSystem="local" code= "GLUMON" displayName="GLUCOSE (POC)" /> <statusCode code="completed" / > <effectiveTime value="019306775754" /> <value unit="mg/dL" xsi:type="PQ" value="167" /> <interpretationCode codeSystem="local" code="*" /> <referenceRange> <observationRange> <text>70-99</text> </observationRange> </referenceRange> </observation> </component> </organizer> </entry> <entry> < organizer moodCode="EVN" classCode="BATTERY"> <templateId root= "06.25.840.1.065291.1022.4.1" /> <id nullFlavor="NA" /> <code codeSystem="local" code="GLUMON" displayName="GLUCOSE (POC)" /> < statusCode code="completed" /> <component> <observation moodCode= "EVN" classCode="OBS"> <templateId root="06.25.840.1.206088.1022.4.2 " /> <id nullFlavor="NA" /> <code codeSystem="local" code= "GLUMON" displayName="GLUCOSE (POC)" /> <statusCode code="completed" / > <effectiveTime value="928503541168" /> <value unit="mg/dL" xsi:type="PQ" value="158" /> <interpretationCode codeSystem="local" code="*" /> <referenceRange> <observationRange> <text>70-99</text> </observationRange> </referenceRange> </observation> </component> </organizer> </entry> <entry> < organizer moodCode="EVN" classCode="BATTERY"> <templateId root= "216.840.1.838671.10..22.4.1" /> <id nullFlavor="NA" /> <code codeSystem="local" code="HH" displayName="HGB HCT" /> <statusCode code= "completed" /> <component> <observation moodCode="EVN" classCode= "OBS"> <templateId root="216.840.1.416359.10...4.2" /> < id nullFlavor="NA" /> <code codeSystem="local" code="MCV" displayName= "MEAN CELL VOLUME" /> <statusCode code="completed" /> < effectiveTime value="" /> <value unit="fl" xsi:type="PQ" value="93.4" /> <referenceRange> <observationRange> <text>80.0-100.0</text> </observationRange> </ referenceRange> </observation> </component> <component> <observation moodCode="EVN" classCode="OBS"> <templateId root= "216.840.1.510869....4.2" /> <id nullFlavor="NA" /> < code codeSystem="local" code="HGBT" displayName="HEMOGLOBIN" /> < statusCode code="completed" /> <effectiveTime value="" /> <value unit="gm/dL" xsi:type="PQ" value="10.7" /> < interpretationCode codeSystem="local" code="*" /> <referenceRange> <observationRange> <text>12.0-16.0</text> </ observationRange> </referenceRange> </observation> </ component> <component> <observation moodCode="EVN" classCode="OBS"> <templateId root="216.840.1.522702.10.22.4.2" /> <id nullFlavor="NA" /> <code codeSystem="local" code="HCTT" displayName= "HEMATOCRIT" /> <statusCode code="completed" /> < effectiveTime value="176941833340" /> <value unit="%" xsi:type="PQ " value="33.7" /> <interpretationCode codeSystem="local" code="*" /> <referenceRange> <observationRange> <text>37.0- 47.0</text> </observationRange> </referenceRange> </ observation> </component> </organizer> </entry> <entry> <organizer moodCode="EVN" classCode="BATTERY"> <templateId root= "216.840.1.008729.10..22.4.1" /> <id nullFlavor="NA" /> <code codeSystem="local" code="METABC" displayName="METABOLIC PANEL, COMPREHN" /> <statusCode code="completed" /> <component> <observation moodCode= "EVN" classCode="OBS"> <templateId root="216.840.1.047971.10..22.4.2 " /> <id nullFlavor="NA" /> <code codeSystem="local" code="K" displayName="POTASSIUM" /> <statusCode code="completed" /> < effectiveTime value="821618995754" /> <value unit="mmol/L" xsi:type="PQ " value="3.8" /> <referenceRange> <observationRange> <text>3.5-5.3</text> </observationRange> </ referenceRange> </observation> </component> <component> <observation moodCode="EVN" classCode="OBS"> <templateId root= "2.16.840.1.940426.10..22.4.2" /> <id nullFlavor="NA" /> < code codeSystem="local" code="eGFR" displayName="EST GFR (MDRD)" /> < statusCode code="completed" /> <effectiveTime value="" /> <value unit="mL/min" xsi:type="PQ" value="55" /> < interpretationCode codeSystem="local" code="*" /> <referenceRange> <observationRange> <text>> 59</text> </ observationRange> </referenceRange> </observation> </ component> <component> <observation moodCode="EVN" classCode="OBS"> <templateId root="216.840.1.390048.02.26.22.4.2" /> <id nullFlavor="NA" /> <code codeSystem="local" code="GAP" displayName= "ANION GAP" /> <statusCode code="completed" /> <effectiveTime value="" /> <value unit="mmol/L" xsi:type="PQ" value="7" / > <referenceRange> <observationRange> <text>5- 15</text> </observationRange> </referenceRange> </ observation> </component> <component> <observation moodCode= "EVN" classCode="OBS"> <templateId root="216.840.1.720120.10..22.4.2 " /> <id nullFlavor="NA" /> <code codeSystem="local" code= "eCrCl" displayName="EST CrCl (CG)" /> <statusCode code="completed" /> <effectiveTime value="" /> <value unit="mL/min" xsi:type="PQ" value="> 60" /> <referenceRange> < observationRange> <text>> 59</text> </ observationRange> </referenceRange> </observation> </ component> <component> <observation moodCode="EVN" classCode="OBS"> <templateId root="06.25.840.1.661383.10.20.22.4.2" /> <id nullFlavor="NA" /> <code codeSystem="local" code="GLU" displayName= "GLUCOSE" /> <statusCode code="completed" /> <effectiveTime value="" /> <value unit="mg/dL" xsi:type="PQ" value="205" / > <interpretationCode codeSystem="local" code="*" /> < referenceRange> <observationRange> <text>70-99</text> </observationRange> </referenceRange> </observation> </component> <component> <observation moodCode="EVN" classCode= "OBS"> <templateId root="06.25.840.1.528726...4.2" /> < id nullFlavor="NA" /> <code codeSystem="local" code="CA" displayName= "CALCIUM" /> <statusCode code="completed" /> <effectiveTime value="" /> <value unit="mg/dL" xsi:type="PQ" value="7.9" / > <interpretationCode codeSystem="local" code="*" /> < referenceRange> <observationRange> <text>8.5-10.1</text > </observationRange> </referenceRange> </observation > </component> <component> <observation moodCode="EVN" classCode="OBS"> <templateId root="06.25.840.1.139866.10..22.4.2" /> <id nullFlavor="NA" /> <code codeSystem="local" code="BUN" displayName="BLOOD UREA NITROGEN" /> <statusCode code="completed" /> <effectiveTime value="" /> <value unit="mg/dL" xsi: type="PQ" value="12" /> <referenceRange> <observationRange> <text>7-20</text> </observationRange> </ referenceRange> </observation> </component> <component> <observation moodCode="EVN" classCode="OBS"> <templateId root= "2.16.840.1.149309.10..22.4.2" /> <id nullFlavor="NA" /> < code codeSystem="local" code="CREAT" displayName="CREATININE" /> < statusCode code="completed" /> <effectiveTime value="" /> <value unit="mg/dL" xsi:type="PQ" value="1.0" /> < referenceRange> <observationRange> <text>0.6-1.0</text> </observationRange> </referenceRange> </observation > </component> <component> <observation moodCode="EVN" classCode="OBS"> <templateId root="216.840.1.287793.10..22.4.2" /> <id nullFlavor="NA" /> <code codeSystem="local" code="NA" displayName="SODIUM" /> <statusCode code="completed" /> < effectiveTime value="" /> <value unit="mmol/L" xsi:type="PQ " value="141" /> <referenceRange> <observationRange> <text>135-148</text> </observationRange> </ referenceRange> </observation> </component> <component> <observation moodCode="EVN" classCode="OBS"> <templateId root= "2.16.840.1.620625.10..22.4.2" /> <id nullFlavor="NA" /> < code codeSystem="local" code="CL" displayName="CHLORIDE" /> < statusCode code="completed" /> <effectiveTime value="" /> <value unit="mmol/L" xsi:type="PQ" value="108" /> < referenceRange> <observationRange> <text>98-110</text> </observationRange> </referenceRange> </observation> </component> <component> <observation moodCode="EVN" classCode ="OBS"> <templateId root="216.840.1.399334...4.2" /> < id nullFlavor="NA" /> <code codeSystem="local" code="AST" displayName= "AST/SGOT" /> <statusCode code="completed" /> <effectiveTime value="" /> <value unit="Units/L" xsi:type="PQ" value="20" /> <referenceRange> <observationRange> <text>10 -37</text> </observationRange> </referenceRange> </ observation> </component> <component> <observation moodCode= "EVN" classCode="OBS"> <templateId root="216.840.1.060553.1022.4.2 " /> <id nullFlavor="NA" /> <code codeSystem="local" code="ALT " displayName="ALT/SGPT" /> <statusCode code="completed" /> < effectiveTime value="" /> <value unit="Units/L" xsi:type= "PQ" value="25" /> <referenceRange> <observationRange> <text>< 66</text> </observationRange> </ referenceRange> </observation> </component> <component> <observation moodCode="EVN" classCode="OBS"> <templateId root= "16.840.1.284831.10.22.4.2" /> <id nullFlavor="NA" /> < code codeSystem="local" code="CO2" displayName="CARBON DIOXIDE" /> < statusCode code="completed" /> <effectiveTime value="" /> <value unit="mmol/L" xsi:type="PQ" value="26" /> < referenceRange> <observationRange> <text>21-32</text> </observationRange> </referenceRange> </observation> </component> <component> <observation moodCode="EVN" classCode= "OBS"> <templateId root="16.840.1.548513...4.2" /> < id nullFlavor="NA" /> <code codeSystem="local" code="TP" displayName= "TOTAL PROTEIN" /> <statusCode code="completed" /> < effectiveTime value="" /> <value unit="gm/dL" xsi:type="PQ " value="6.3" /> <interpretationCode codeSystem="local" code="*" /> <referenceRange> <observationRange> <text>6.4-8.2 </text> </observationRange> </referenceRange> </ observation> </component> <component> <observation moodCode= "EVN" classCode="OBS"> <templateId root="06.25.840.1.392913.10.22.4.2 " /> <id nullFlavor="NA" /> <code codeSystem="local" code="ALB " displayName="ALBUMIN" /> <statusCode code="completed" /> < effectiveTime value="" /> <value unit="gm/dL" xsi:type="PQ " value="2.8" /> <interpretationCode codeSystem="local" code="*" /> <referenceRange> <observationRange> <text>3.4-5.0 </text> </observationRange> </referenceRange> </ observation> </component> <component> <observation moodCode= "EVN" classCode="OBS"> <templateId root="16.840.1.322139.10...4.2 " /> <id nullFlavor="NA" /> <code codeSystem="local" code= "BILTOT" displayName="BILI TOTAL" /> <statusCode code="completed" /> <effectiveTime value="524230160274" /> <value unit="mg/dL" xsi: type="PQ" value="0.5" /> <referenceRange> <observationRange > <text>0.0-1.0</text> </observationRange> </ referenceRange> </observation> </component> <component> <observation moodCode="EVN" classCode="OBS"> <templateId root= "216.840.1.990264.10...4.2" /> <id nullFlavor="NA" /> < code codeSystem="local" code="ALKP" displayName="ALKALINE PHOSPHATASE TOTAL" /> <statusCode code="completed" /> <effectiveTime value= "" /> <value unit="IU/L" xsi:type="PQ" value="67" /> <referenceRange> <observationRange> <text>45-117</ text> </observationRange> </referenceRange> </ observation> </component> </organizer> </entry> <entry> <organizer moodCode="EVN" classCode="BATTERY"> <templateId root= "2.16.840.1.765246.10...4.1" /> <id nullFlavor="NA" /> <code codeSystem="local" code="GLUMON" displayName="GLUCOSE (POC)" /> < statusCode code="completed" /> <component> <observation moodCode= "EVN" classCode="OBS"> <templateId root="16.840.1.541816.10..22.4.2 " /> <id nullFlavor="NA" /> <code codeSystem="local" code= "GLUMON" displayName="GLUCOSE (POC)" /> <statusCode code="completed" / > <effectiveTime value="597546620161" /> <value unit="mg/dL" xsi:type="PQ" value="194" /> <interpretationCode codeSystem="local" code="*" /> <referenceRange> <observationRange> <text>70-99</text> </observationRange> </referenceRange> </observation> </component> </organizer> </entry> <entry> < organizer moodCode="EVN" classCode="BATTERY"> <templateId root= "06.25.840.1.525195.10...4.1" /> <id nullFlavor="NA" /> <code codeSystem="local" code="GLUMON" displayName="GLUCOSE (POC)" /> < statusCode code="completed" /> <component> <observation moodCode= "EVN" classCode="OBS"> <templateId root="06.25.840.1.931098.10..22.4.2 " /> <id nullFlavor="NA" /> <code codeSystem="local" code= "GLUMON" displayName="GLUCOSE (POC)" /> <statusCode code="completed" / > <effectiveTime value="029560557141" /> <value unit="mg/dL" xsi:type="PQ" value="164" /> <interpretationCode codeSystem="local" code="*" /> <referenceRange> <observationRange> <text>70-99</text> </observationRange> </referenceRange> </observation> </component> </organizer> </entry> <entry> < organizer moodCode="EVN" classCode="BATTERY"> <templateId root= "16.840.1.689064.10..22.4.1" /> <id nullFlavor="NA" /> <code codeSystem="local" code="GLUMON" displayName="GLUCOSE (POC)" /> < statusCode code="completed" /> <component> <observation moodCode= "EVN" classCode="OBS"> <templateId root="06.25.840.1.504832...4.2 " /> <id nullFlavor="NA" /> <code codeSystem="local" code= "GLUMON" displayName="GLUCOSE (POC)" /> <statusCode code="completed" / > <effectiveTime value="447368046829" /> <value unit="mg/dL" xsi:type="PQ" value="167" /> <interpretationCode codeSystem="local" code="*" /> <referenceRange> <observationRange> <text>70-99</text> </observationRange> </referenceRange> </observation> </component> </organizer> </entry> <entry> < organizer moodCode="EVN" classCode="BATTERY"> <templateId root= "06.25.840.1.230154.10.22.4.1" /> <id nullFlavor="NA" /> <code codeSystem="local" code="GLUMON" displayName="GLUCOSE (POC)" /> < statusCode code="completed" /> <component> <observation moodCode= "EVN" classCode="OBS"> <templateId root="06.25.840.1.282428.02.26.22.4.2 " /> <id nullFlavor="NA" /> <code codeSystem="local" code= "GLUMON" displayName="GLUCOSE (POC)" /> <statusCode code="completed" / > <effectiveTime value="663225538013" /> <value unit="mg/dL" xsi:type="PQ" value="210" /> <interpretationCode codeSystem="local" code="*" /> <referenceRange> <observationRange> <text>70-99</text> </observationRange> </referenceRange> </observation> </component> </organizer> </entry> <entry> < organizer moodCode="EVN" classCode="BATTERY"> <templateId root= "2.16.840.1.891151.10..22.4.1" /> <id nullFlavor="NA" /> <code codeSystem="local" code="GLUMON" displayName="GLUCOSE (POC)" /> < statusCode code="completed" /> <component> <observation moodCode= "EVN" classCode="OBS"> <templateId root="2.16.840.1.736147.10.20.22.4.2 " /> <id nullFlavor="NA" /> <code codeSystem="local" code= "GLUMON" displayName="GLUCOSE (POC)" /> <statusCode code="completed" / > <effectiveTime value="660891318199" /> <value unit="mg/dL" xsi:type="PQ" value="192" /> <interpretationCode codeSystem="local" code="*" /> <referenceRange> <observationRange> <text>70-99</text> </observationRange> </referenceRange> </observation> </component> </organizer> </entry> <entry> < organizer moodCode="EVN" classCode="BATTERY"> <templateId root= "2..840.1.850821.02.26.22.4.1" /> <id nullFlavor="NA" /> <code codeSystem="local" code="GLUMON" displayName="GLUCOSE (POC)" /> < statusCode code="completed" /> <component> <observation moodCode= "EVN" classCode="OBS"> <templateId root="840.1.686749.02.26.22.4.2 " /> <id nullFlavor="NA" /> <code codeSystem="local" code= "GLUMON" displayName="GLUCOSE (POC)" /> <statusCode code="completed" / > <effectiveTime value="459261649287" /> <value unit="mg/dL" xsi:type="PQ" value="175" /> <interpretationCode codeSystem="local" code="*" /> <referenceRange> <observationRange> <text>70-99</text> </observationRange> </referenceRange> </observation> </component> </organizer> </entry> <entry> < organizer moodCode="EVN" classCode="BATTERY"> <templateId root= "840.1.949211.02.26.22.4.1" /> <id nullFlavor="NA" /> <code codeSystem="local" code="GLUMON" displayName="GLUCOSE (POC)" /> < statusCode code="completed" /> <component> <observation moodCode= "EVN" classCode="OBS"> <templateId root="840.1.944600.02.26.22.4.2 " /> <id nullFlavor="NA" /> <code codeSystem="local" code= "GLUMON" displayName="GLUCOSE (POC)" /> <statusCode code="completed" / > <effectiveTime value="602209486376" /> <value unit="mg/dL" xsi:type="PQ" value="166" /> <interpretationCode codeSystem="local" code="*" /> <referenceRange> <observationRange> <text>70-99</text> </observationRange> </referenceRange> </observation> </component> </organizer> </entry> <entry> < organizer moodCode="EVN" classCode="BATTERY"> <templateId root= "16.840.1.024058.10..22.4.1" /> <id nullFlavor="NA" /> <code codeSystem="local" code="GLUMON" displayName="GLUCOSE (POC)" /> < statusCode code="completed" /> <component> <observation moodCode= "EVN" classCode="OBS"> <templateId root="16.840.1.996486.10..22.4.2 " /> <id nullFlavor="NA" /> <code codeSystem="local" code= "GLUMON" displayName="GLUCOSE (POC)" /> <statusCode code="completed" / > <effectiveTime value="492060907351" /> <value unit="mg/dL" xsi:type="PQ" value="172" /> <interpretationCode codeSystem="local" code="*" /> <referenceRange> <observationRange> <text>70-99</text> </observationRange> </referenceRange> </observation> </component> </organizer> </entry> <entry> < organizer moodCode="EVN" classCode="BATTERY"> <templateId root= "16.840.1.763012.10..22.4.1" /> <id nullFlavor="NA" /> <code codeSystem="local" code="GLUMON" displayName="GLUCOSE (POC)" /> < statusCode code="completed" /> <component> <observation moodCode= "EVN" classCode="OBS"> <templateId root="2.16.840.1.454331.10.20.22.4.2 " /> <id nullFlavor="NA" /> <code codeSystem="local" code= "GLUMON" displayName="GLUCOSE (POC)" /> <statusCode code="completed" / > <effectiveTime value="727493706693" /> <value unit="mg/dL" xsi:type="PQ" value="163" /> <interpretationCode codeSystem="local" code="*" /> <referenceRange> <observationRange> <text>70-99</text> </observationRange> </referenceRange> </observation> </component> </organizer> </entry> <entry> < organizer moodCode="EVN" classCode="BATTERY"> <templateId root= "2.16.840.1.685802.10.20.22.4.1" /> <id nullFlavor="NA" /> <code codeSystem="local" code="GLUMON" displayName="GLUCOSE (POC)" /> < statusCode code="completed" /> <component> <observation moodCode= "EVN" classCode="OBS"> <templateId root="2.16.840.1.155661.10.20.22.4.2 " /> <id nullFlavor="NA" /> <code codeSystem="local" code= "GLUMON" displayName="GLUCOSE (POC)" /> <statusCode code="completed" / > <effectiveTime value="557606141805" /> <value unit="mg/dL" xsi:type="PQ" value="177" /> <interpretationCode codeSystem="local" code="*" /> <referenceRange> <observationRange> <text>70-99</text> </observationRange> </referenceRange> </observation> </component> </organizer> </entry></section> Encounters ACCT No. Visit Date/Time Discharge Status Pt. Type Provider Facility Loc./Unit Complaint [id number] 08/10/2014 13:59:00 08/10/2014 23:59:59 CLS Outpatient PRISCA WINTER MD [id number] 04/13/2013 08:45:00 04/13/2013 23:59:59 CLS Outpatient CRYSTAL LINK DO [id number] 10/03/2014 08:43:54 10/03/2014 23[facility]59[id number]/05/2014 16:52:45 06/05/2014 23:59:[place] [facility] [id number] 05/18/2014 16:56:26 05/18/2014 23:59:[place] [facility] [id number] 02/12/2014 18:51:42 02/12/2014 23:59:00 DIS Outpatient [facility] [id number] 01/04/2014 06:39:12 01/04/2014 23:59:00 [place] [facility] [id number] 10/05/2013 13:46:32 10/05/2013 23:59:00 DIS Outpatient [facility] [id number] 03/30/2015 13:15:00 04/03/2015 13:25:00 DIS Inpatient Jonah CALIXTO, [facility] W.9TN [id number] 04/22/2017 20:07:00 04/23/2017 06:26:00 DIS Outpatient PRISCA WINTER MD [facility] SLEEP SNORING [id number] 04/20/2017 13:39:00 04/20/2017 23:59:59 CLS Outpatient TORIN CALIXTO, Kushal ROSAS [facility] CARD I10,I48.0,I47.1,R00.2 [id number] 04/16/2017 08:30:00 04/16/2017 23:59:59 CLS Outpatient Kushal HARKINS MD [facility] CARD I48.0,I47.1,R00.2 [id number] 03/29/2017 07:07:00 03/29/2017 23:59:59 CLS Outpatient Kushal HARKINS MD [facility] CARD PAF [id number] 03/25/2017 08:00:00 03/25/2017 23:59:59 CLS Outpatient Kushal HARKINS MD [facility] CARD I48.0,I47.1,R00.2,I10, E11.9,R42 [id number] 03/01/2017 10:23:00 03/01/2017 23:59:59 CLS Outpatient AVINASH MARIN MD [facility] CARD SYCOPAL EPISODES [id number] 02/07/2017 10:15:00 02/07/2017 23:59:59 CLS Preadmit EMERY GARDUNO DO [facility] PUL ASTHMA [id number] 11/12/2016 13:29:00 02/06/2017 00:01:00 DIS Outpatient EMERY GARDUNO DO [facility] PUL ASTHMA [id number] 12/29/2016 09:14:00 12/29/2016 23:59:59 CLS Outpatient NEERU CABAN DO [facility] ENDO CONSTIPATION HISTORY OF COLON POLYPS ANEMIA [id number] 12/23/2016 05:34:00 12/23/2016 23:59:59 CLS Outpatient NEERU CABAN DO [facility] PREOP ANEMIA, CONSTIPATION, HISTORY OF COLON POLYPS [id number] 12/15/2016 08:45:00 12/15/2016 23:59:59 CLS Preadmit NEERU CABAN DO [facility] ENDO ANEMIA, CONSTIPATION, HX COLON POLYPS [id number] 12/14/2016 05:40:00 12/14/2016 10:27:00 DIS Outpatient NEERU CABAN DO [facility] PREOP COLONSCOPY [id number] 11/05/2016 13:00:00 11/08/2016 00:01:00 DIS Outpatient EMERY GARDUNO DO [facility] PULM ASTHMA [id number] 11/04/2016 12:03:00 11/04/2016 23:59:59 CLS Outpatient PRISCA WINTER MD [facility] RAD STAGE 3 CKD N18.3 [id number] 07/11/2016 15:32:00 07/11/2016 23:59:59 CLS Outpatient MIKE ALDRIDGE DO [facility] RAD LT KNEE CHONDROMALACIA [id number] 07/09/2016 15:01:00 07/09/2016 23:59:59 CLS Outpatient EMERY GARDUNO DO [facility] RAD ASTHMA [id number] 07/07/2016 11:00:00 07/07/2016 23:59:59 CLS Outpatient PRISCA WINTER MD [facility] RAD SCREENING [id number] 06/04/2016 13:05:00 07/01/2016 12:01:00 DIS Outpatient BRISA ALONSO PA-C [facility] REHAB CONTRACTURE R ELBOW ;DISPLACED FRACTURE OF LOWER EN [id number] 06/10/2016 09:57:00 06/10/2016 23:59:59 CLS Outpatient PRISCA WINTER MD [facility] RT MILD PERSISTENT ASTHMA [id number] 05/12/2016 09:28:00 05/12/2016 00:01:00 DIS Outpatient OTHER, UNLISTED [facility] REHAB CONTRACTURE R ELBOW; DISPLACED FRACTURE OF LOWER EN [id number] 11/19/2015 10:04:00 12/12/2015 13:21:00 DIS [facility] R HUMERUS [id number] 09/25/2015 10:43:00 09/25/2015 11:34:00 DIS Outpatient PRISCA WINTER MD [facility] REHAB FREQUENT FALLS AND GAIT EVALUATION [id number] 09/05/2015 14:25:00 09/05/2015 23:59:59 CLS Outpatient MOY CALIXTO, PRISCA Yoder [facility] RAD RIB PAIN [id number] 08/13/2015 10:34:00 08/13/2015 00:01:00 DIS Outpatient OTHER, UNLISTED [facility] REHAB DISPLACED FX OF LOWER END OF R HUMERUS [id number] 06/27/2015 10:34:00 06/27/2015 23:59:59 CLS Outpatient JONAH CALIXTO, SUSAN Pack [facility] LAB POST ORIF RIGHT INTRA -ARTICULAR DISTAL HUMERUS FRA [id number] 09/01/2014 16:22:00 09/01/2014 23:59:59 CLS Outpatient DEEPIKA CASTAÑEDA DO [facility] QUICK LEFT FOOT PAIN [id number] 04/28/2017 08:53:00 ACT Outpatient Kushal HARKINS MD [facility] CATH PAF,DIZZINESS [id number] 04/28/2017 07:47:00 ACT Outpatient IVONNE MALLORY [facility] REHAB CENTRAL AND PERIPHERAL VESTIBULAR DYSFUNCTION
[2017-04-28] MEDS ORDERED: LIDOCAINE 1% INJ 50 ML (XYLOCAINE) VIAL ONE (09:09)
[2017-04-28 09:14] VITALS: BP 146/60
--- NOTE | 2017-04-28 11:06 | Cardiology Post Procedure Note ---
Post-Procedure Note Physician (s)/Ocular Care Aide (s) Physician Kushal HARKINS MD Pre-Procedure Diagnosis Pre-Procedure Diagnosis: Atrial fibrillation Post-Procedure Note Procedure Start Date: Apr 28, 2017 Procedure Start Time: 10:20 Name of Procedure: Implantable loop recorder Biotronik placement. Findings/Procedure Note paroxysmal atrial fibrillation. Long-term surveillance of atrial fibrillation is recommended. Implantable loop recorder from Biotronik placed subcutaneously on the left side of left sternal border fourth intercostal space. With lidocaine Estimated blood loss (mL): 1 Contrast Amount: 0 Post-Procedure Diagnosis Post-operative diagnosis: Successful implantable Biotronik loop recorder placement. Kushal HARKINS MD Apr 28, 2017 11:06 am
--- NOTE | 2017-04-28 20:09 | OPERATIVE REPORT ---
DATE OF SERVICE: 04/28/2017 Implantable loop recorder report. PERFORMING PHYSICIAN: . REFERRING PHYSICIAN: Dr. Maryan Palmer. INDICATION: Long-term surveillance of atrial fibrillation. PROCEDURE HISTORY: The patient is a 66-year-old lady with history of paroxysmal atrial fibrillation. Event monitor has been performed previously. Long-term surveillance of atrial fibrillation is recommended. Therefore, an implantable loop recorder is recommended. PROCEDURE IN DETAIL: The patient was brought to the laboratory machinist after informed consent was taken. She was draped and prepped in the usual sterile fashion. Lidocaine was given in the left lower sternal border at fourth intercostal space on the left side. A subcutaneous implantation of a Biotronik implantable loop recorder was done. The incision was sutured with a 2-0 silk suture. The patient did not have any complication and tolerated the procedure well. CONCLUSION: 1. Implantable loop recorder from Biotronik placed for long-term surveillance of atrial fibrillation. 2. Wound check in 1 week. 3. EP follow up in 4 weeks. Job ID: [id number] DocumentID: [id number] Dictated Date: 04/28/2017 11:17:12 Short Story Writer Date: 04/28/2017 20:08:16 Dictated By: NATALY HARKINS MD
== END 2017-04-28 11:23 | disposition home or self-care (01) ==
LOC: CATH 08:53
PROVIDERS: ATTEND Internal Medicine Interventional Cardiology
DX: I48.0 Paroxysmal atrial fibrillation (principal); I12.9 Hypertensive chronic kidney disease with stage 1 through stage 4 chronic kidney disease, or unspecified chronic kidney disease; N18.3 Chronic kidney disease, stage 3 (moderate); E11.22 Type 2 diabetes mellitus with diabetic chronic kidney disease; D86.0 Sarcoidosis of lung
CPT/HCPCS: 33282

== ENCOUNTER 2017-05-17 13:52 | Outpatient (CLI) | payer MEDICARE, OTHER | END 2017-05-18 06:15 | disposition home or self-care (01) | LOC: SLEEP 13:52 | PROVIDERS: ATTEND Nurse Practitioner Family | DX: G47.33 Obstructive sleep apnea (adult) (pediatric) (principal); G47.36 Sleep related hypoventilation in conditions classified elsewhere | CPT/HCPCS: 95811 ==

== ENCOUNTER 2017-06-17 09:57 | Outpatient (RCR) | payer MEDICARE, OTHER | END 2017-06-17 11:22 | disposition home or self-care (01) | PROVIDERS: ATTEND Physician Assistant | DX: H81.43 Vertigo of central origin, bilateral (principal); H81.393 Other peripheral vertigo, bilateral ==

== ENCOUNTER → 2017-07-20 | Outpatient (CLI) | payer MEDICARE, OTHER ==
--- NOTE | 2017-07-20 19:15 | Diagnostic Imaging Report ---
EXAMINATION: Digital mammogram bilateral screening. INDICATION: Screening. COMPARISON: This study was compared to the prior exams of 07/07/2016, 11/28/2014, and 11/27/2013. At this time, there are no current complaints. The current study was also evaluated with a Computer Aided Detection (CAD) system. FINDINGS: There are scattered fibroglandular densities in both breasts, which could obscure a lesion. Overall, there does not appear to have been any significant change. There is no primary or secondary sign of malignancy noted. However, in the interval since the prior study, a metallic electrode device has been inserted in the soft tissues over the mid portion of the superior half of the left breast. A portion of the left breast tissue is obscured by this device. IMPRESSION: The breasts, where visualized, seem similar to the prior exam. There is no evidence of malignancy. ACR BI-RADS Category 1: Negative. Result letter will be mailed to the patient. Note: At least 10% of breast cancer is not imaged by mammography. Dictated by: Dictated on workstation # [id number]
== END ==
LOC: RAD 09:40
PROVIDERS: ATTEND Family Medicine
DX: Z12.31 Encounter for screening mammogram for malignant neoplasm of breast (principal)
CPT/HCPCS: 77067

== ENCOUNTER 2017-08-03 20:12 | Outpatient (CLI) | payer MEDICARE, OTHER | END 2017-08-04 06:15 | disposition home or self-care (01) | LOC: SLEEP 20:12 | PROVIDERS: ATTEND Nurse Practitioner | DX: G47.33 Obstructive sleep apnea (adult) (pediatric) (principal) | CPT/HCPCS: 95811 ==

== ENCOUNTER → 2018-05-31 | Outpatient (CLI) | payer MEDICARE, OTHER ==
[~2018-05-31] MED LIST changes: +METF-399 PO; -METF1000 PO
--- NOTE | 2018-05-31 10:05 | Diagnostic Imaging Report ---
PROCEDURE: US Renal Bilateral. INDICATION: Chronic renal disease. TECHNIQUE: Multiple real-time grayscale sonographic images were obtained of the kidneys. COMPARISON: 11/04/2016 FINDINGS: RIGHT KIDNEY: 8.9 x 4.4 x 5.2 cm. LEFT KIDNEY: 9.2 x 4.2 x 5.2 cm. There is again seen diffuse atrophy with thinning of the renal parenchyma of both kidneys. Increased echogenicity is also noted. There is no evidence for hydronephrosis or obstruction. URINARY BLADDER: Relatively decompressed and therefore not able to be fully evaluated at this time. IMPRESSION: 1. Mild to moderate renal atrophy. No hydronephrosis or obstruction. Dictated by: Dictated on workstation # [id number]
== END ==
LOC: RAD 08:31
PROVIDERS: ATTEND Internal Medicine Nephrology
DX: N18.3 Chronic kidney disease, stage 3 (moderate) (principal); N26.1 Atrophy of kidney (terminal)
CPT/HCPCS: 76770

== ENCOUNTER → 2019-06-22 | Outpatient (CLI) | payer MEDICARE, OTHER ==
--- NOTE | 2019-06-22 08:25 | Diagnostic Imaging Report ---
PROCEDURE: US right lower extremity venous. TECHNIQUE: Multiple real-time grayscale images were obtained over the right lower extremity in various projections. Additional spectral analysis and color Doppler duplex images were also obtained. INDICATION: Leg pain. There are no prior studies available for comparison. FINDINGS: There is generally good blood flow and compressibility at all levels. There is no evidence for deep venous thrombosis. IMPRESSION: There is no evidence for deep venous thrombosis of the right lower extremity. Dictated by: Dictated on workstation # [id number]
== END ==
LOC: RAD 06:49
PROVIDERS: ATTEND Chiropractor
DX: M79.661 Pain in right lower leg (principal); M99.04 Segmental and somatic dysfunction of sacral region; M99.03 Segmental and somatic dysfunction of lumbar region; M54.17 Radiculopathy, lumbosacral region; M99.01 Segmental and somatic dysfunction of cervical region; M79.10 Myalgia, unspecified site; R29.3 Abnormal posture

== ENCOUNTER → 2019-09-15 | Outpatient (CLI) | payer MEDICARE, OTHER ==
--- NOTE | 2019-09-15 13:44 | Diagnostic Imaging Report ---
EXAM: Digital mammogram, bilateral screening. This study was compared to the prior exams of 07/20/2017, 07/07/2016 and 11/28/2014. There are no current complaints. FINDINGS: There are scattered fibroglandular densities in both breasts which could obscure a lesion. When compared to the prior study, there does not appear to have been any significant change. There is no primary or secondary sign of malignancy noted. As noted on the prior exam, there is a metallic electrical device in the midportion of the superior half of the left breast. This finding is quite similar in appearance and position to the prior exam. IMPRESSION: 1. There is no evidence for malignancy. 2. The patient should have her annual bilateral screening mammogram on schedule in September of 2020. ACR category 1 ACR BI-RADS Category 1: Negative. Result letter will be mailed to the patient. Note: At least 10% of breast cancer is not imaged by mammography. Dictated by: Dictated on workstation # [id number]
== END ==
LOC: RAD 09:08
PROVIDERS: ATTEND Family Medicine
DX: Z12.31 Encounter for screening mammogram for malignant neoplasm of breast (principal)
CPT/HCPCS: 77063; 77067

== ENCOUNTER 2019-10-23 23:38 | Emergency (ER) | payer MEDICARE, OTHER ==
[~2019-10-23] VITALS: Ht 172 cm; Wt 101.0 kg
[2019-10-24 01:24] LABS: BASOPHILS # (AUTO) 0.1 10^3/uL (0.0-0.1); BASOPHILS % (AUTO) 1 % (0-10); EOSINOPHILS # (AUTO) 0.5 10^3/uL (0.0-0.3); EOSINOPHILS % (AUTO) 5 % (0-10); HEMATOCRIT 44 % (35-52); HEMOGLOBIN 14.3 G/DL (11.5-16.0); LYMPHOCYTES # (AUTO) 2.2 X 10^3 (1.0-4.0); LYMPHOCYTES % (AUTO) 26 % (12-44); MEAN CORPUSCULAR HEMOGLOBIN 29 PG (25-34); MEAN CORPUSCULAR HGB CONC 32 G/DL (32-36); MEAN CORPUSCULAR VOLUME 90 FL (80-99); MEAN PLATELET VOLUME 10.4 FL (7.4-10.4); MONOCYTES % (AUTO) 12 % (0-12); NEUTROPHILS # (AUTO) 4.7 X 10^3 (1.8-7.8); NEUTROPHILS % (AUTO) 56 % (42-75); PLATELET COUNT 272 10^3/uL (130-400); RED CELL DISTRIBUTION WIDTH 14.4 % (10.0-14.5); WHITE BLOOD COUNT 8.4 10^3/uL (4.3-11.0)
[2019-10-24 01:25] LABS: BILIRUBIN,URINE NEGATIVE (NEGATIVE); CLARITY,URINE SL CLOUDY; COLOR,URINE YELLOW; GLUCOSE, URINE (UA) 3+ (NEGATIVE); KETONES,URINE NEGATIVE (NEGATIVE); LEUKOCYTE ESTERASE ,URINE NEGATIVE (NEGATIVE); NITRITE,URINE NEGATIVE (NEGATIVE); PH,URINE 5.5 (5-9); PROTEIN,URINE 1+ (NEGATIVE)
[2019-10-24 01:32] LABS: BACTERIA,URINE LARGE /HPF; RBC,URINE 0-2 /HPF
[2019-10-24 01:34] LABS: CALCIUM 9.5 MG/DL (8.5-10.1); CREATININE SERUM 2.14 MG/DL (0.60-1.30); MAGNESIUM 2.6 MG/DL (1.6-2.4); POTASSIUM 4.6 MMOL/L (3.6-5.0)
[2019-10-24] MEDS ORDERED: NS IV 1000 ML 1,000 ML IV SCH ×2 (01:37→01:58)
[2019-10-24] MEDS ORDERED: cefTRIAXone FOR IV USE 1,000 MG in WATER (STERILE) FOR INJECTION 10 ML IV ONE (02:00)
[2019-10-24] MEDS ORDERED: CEPH-507 PO (03:39)
--- NOTE | 2019-10-24 03:39 | ED General ---
General Chief Complaint: Glucose Problems Stated Complaint: HIGH BLOOD SUGAR 535 Nursing Triage Note: Pt ambulates to RM 7 with c/o hyperglycemia and fatigue. Pt reports glucose in 500's. Pt glucose is 415 on arrival. Pt states her meds were changed about a week ago and thinks that might of caused her glucose imbalance. Pt is not in any respiratory distress on arrival, denies any chest pain/fever/chills. Nursing Sepsis Screen: No Definite Risk Source of Information: Patient Exam Limitations: No Limitations History of Present Illness Date Seen by Provider: Oct 23, 2019 Time Seen by Provider: 23:59 Initial Comments This delightful 69-year-old woman presents to the emergency room with primary complaint of high blood sugars. She also has had urinary frequency. She was recently treated for UTI. She also notes her metformin was recently stopped due to persistent chronic kidney disease. Allergies and Home Medications Allergies Coded Allergies: No Known Drug Allergies (Unverified , 12/14/16) Home Medications Budesonide/Formoterol Fumarate 10.2 Gm Hfa.aer.ad, 2 PUFF IH BID, (Reported) Cephalexin 500 Mg Capsule, 500 MG PO BID Prescribed by: GABRIELLA GARCIA on 10/24/19 0339 Cholecalciferol (Vitamin D3) 1,000 Unit Tablet, 1,000 UNIT PO DAILY, (Reported) Duloxetine HCl 60 Mg Capsule.dr, 60 MG PO DAILY, (Reported) Fexofenadine HCl 180 Mg Tablet, 180 MG PO PRN, (Reported) Metformin HCl 1,000 Mg Tablet, 1,000 MG PO DAILY, (Reported) Sertraline HCl 50 Mg Tablet, 50 MG PO DAILY, (Reported) Simvastatin 10 Mg Tablet, 10 MG PO DAILY, (Reported) Sitagliptin Phos/Metformin HCl 1 Each Tablet, 1 EACH PO DAILY, (Reported) Triamterene/Hydrochlorothiazid 1 Each Capsule, 1 EACH PO DAILY, (Reported) Patient Home Medication List Home Medication List Reviewed: Yes Review of Systems Review of Systems Constitutional: no symptoms reported EENTM: no symptoms reported Respiratory: no symptoms reported Cardiovascular: no symptoms reported Gastrointestinal: no symptoms reported Genitourinary: see HPI : No Musculoskeletal: no symptoms reported Skin: no symptoms reported Psychiatric/Neurological: No Symptoms Reported Hematologic/Lymphatic: No Symptoms Reported Immunological/Allergic: no symptoms reported Past Saukgrz-Gtdpyk-Tzcrtr Hx Past Med/Social Hx: Reviewed Nursing Past Med/Soc Hx Patient Social History Alcohol Use: Denies Use Recreational Drug Use: No Smoking Status: Never a Smoker 2nd Hand Smoke Exposure: No Recent Foreign Travel: No Contact w/Someone Who Travel: No Recent Infectious Disease Expo: No Recent Hopitalizations: No Immunizations Up To Date Date of Pneumonia Vaccine: May 21, 2014 Date of Influenza Vaccine: Feb 17, 2016 Seasonal Allergies Seasonal Allergies: No Past Medical History Surgeries: Yes (NERVE REPLACEMENT LEG, ELBOW FX REPAIR, R TKR) Hysterectomy, Tonsillectomy Respiratory: Yes Asthma Cardiac: Yes ("BLOOD CLOT IN ANKLE") Deep Vein Thrombosis, High Cholesterol, Hypertension Neurological: No Reproductive Disorders: No 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 Sexually Transmitted Disease: No HIV/AIDS: No Genitourinary: Yes Renal Failure, UTI-Chronic Gastrointestinal: Yes Chronic Constipation Musculoskeletal: Yes Arthritis Endocrine: Yes Diabetes, Non-Insulin dep Loss of Vision: Bilateral Hearing Impairment: Denies Cancer: Yes Skin Psychosocial: Yes Anxiety, Depression Integumentary: No Blood Disorders: No Adverse Reaction/Blood Tranf: No (N/A) Physical Exam Vital Signs Vital Signs - First Documented 10/24/19 01:03 Temp 35.8 Pulse 76 Resp 18 B/P (MAP) 118/71 (87) Pulse Ox 98 O2 Delivery Room Air Capillary Refill : Less Than 3 Seconds Height, Weight, BMI Height: 5'8.00" Weight: 214lbs. 0.0oz. 97.375021yv; 34.00 BMI Method: General Appearance: No Apparent Distress, WD/WN HEENT: PERRL/EOMI, Normal ENT Inspection Neck: Normal Inspection Respiratory: Lungs Clear, Normal Breath Sounds, No Accessory Muscle Use, No Respiratory Distress Cardiovascular: Regular Rate, Rhythm, No Edema, No Murmur Gastrointestinal: Normal Bowel Sounds, Non Tender, Soft Extremity: Normal Inspection, No Pedal Edema Neurologic/Psychiatric: Alert, Oriented x3, No Motor/Sensory Deficits, Normal Mood/Affect, hairpiece stylist II-XII Norm as Tested Skin: Normal Color, Warm/Dry Progress/Results/Core Measures Suspected Sepsis Recent Fever Within 48 Hours: No Infection Criteria Present: None New/Unexplained Altered Menta: No Sepsis Screen: No Definite Risk SIRS Temperature: Pulse: 76 Respiratory Rate: 18 Laboratory Tests 10/24/19 01:08: White Blood Count 8.4 Blood Pressure 118 /71 Mean: 87 Laboratory Tests 10/24/19 01:08: Creatinine 2.14H, Platelet Count 272 Results/Orders Lab Results Laboratory Tests Test 10/24/19 01:08 10/24/19 01:10 10/24/19 01:14 10/24/19 02:18 Range/Units White Blood Count 8.4 4.3-11.0 10^3/uL Red Blood Count 4.92 4.35-5.85 10^6/uL Hemoglobin 14.3 11.5-16.0 G/DL Hematocrit 44 35-52 % Mean Corpuscular Volume 90 80-99 FL Mean Corpuscular Hemoglobin 29 25-34 PG Mean Corpuscular Hemoglobin Concent 32 32-36 G/DL Red Cell Distribution Width 14.4 10.0-14.5 % Platelet Count 272 130-400 10^3/uL Mean Platelet Volume 10.4 7.4-10.4 FL Neutrophils (%) (Auto) 56 42-75 % Lymphocytes (%) (Auto) 26 12-44 % Monocytes (%) (Auto) 12 0-12 % Eosinophils (%) (Auto) 5 0-10 % Basophils (%) (Auto) 1 0-10 % Neutrophils # (Auto) 4.7 1.8-7.8 X 10^3 Lymphocytes # (Auto) 2.2 1.0-4.0 X 10^3 Monocytes # (Auto) 1.0 0.0-1.0 X 10^3 Eosinophils # (Auto) 0.5 H 0.0-0.3 10^3/uL Basophils # (Auto) 0.1 0.0-0.1 10^3/uL Sodium Level 133 L 135-145 MMOL/L Potassium Level 4.6 3.6-5.0 MMOL/L Chloride Level 103 98-107 MMOL/L Carbon Dioxide Level 15 L 21-32 MMOL/L Anion Gap 15 H 5-14 MMOL/L Blood Urea Nitrogen 33 H 7-18 MG/DL Creatinine 2.14 H 0.60-1.30 MG/DL Estimat Glomerular Filtration Rate 23 BUN/Creatinine Ratio 15 Glucose Level 466 *H 70-105 MG/DL Calcium Level 9.5 8.5-10.1 MG/DL Magnesium Level 2.6 H 1.6-2.4 MG/DL Glucometer 415 *H 363 H 70-110 MG/DL Urine Color YELLOW Urine Clarity SL CLOUDY Urine pH 5.5 5-9 Urine Specific Wendell 1.020 1.016-1.022 Urine Protein 1+ H NEGATIVE Urine Glucose (UA) 3+ H NEGATIVE Urine Ketones NEGATIVE NEGATIVE Urine Nitrite NEGATIVE NEGATIVE Urine Bilirubin NEGATIVE NEGATIVE Urine Urobilinogen 0.2 < = 1.0 MG/DL Urine Leukocyte Esterase NEGATIVE NEGATIVE Urine RBC (Auto) NEGATIVE NEGATIVE Urine RBC 0-2 /HPF Urine WBC 2-5 /HPF Urine Squamous Epithelial Cells 2-5 /HPF Urine Crystals NONE /LPF Urine Bacteria LARGE H /HPF Urine Casts NONE /LPF Urine Mucus NEGATIVE /LPF Urine Culture Indicated YES Test 10/24/19 03:11 Range/Units Glucometer 296 H 70-110 MG/DL My Orders Orders - GABRIELLA DICKSON MD Accucheck Stat ONCE (10/23/19 23:59) Basic Metabolic Panel (10/24/19 01:18) Cbc With Automated Diff (10/24/19 01:18) Magnesium (10/24/19 01:18) Ed Iv/Invasive Line Start (10/24/19 01:18) Ua Culture If Indicated (10/24/19 01:18) Urine Culture (10/24/19 01:14) Ns Iv 1000 Ml (Sodium Chloride 0.9%) (10/24/19 01:37) Ceftriaxone For Iv Use (Rocephin For I (10/24/19 02:00) Accucheck Stat ONCE (10/24/19 01:57) Ns Iv 1000 Ml (Sodium Chloride 0.9%) (10/24/19 01:58) Accucheck Stat ONCE (10/24/19 02:50) Medications Given in ED Current Medications Medications Dose Ordered Sig/Tam Route Start Time Stop Time Status Last Admin Dose Admin Ceftriaxone Sodium 1000 mg/ Sterile Water 10 ml @ 200 mls/hr ONCE ONCE IV 10/24/19 02:00 10/24/19 02:02 DC 10/24/19 02:18 200 MLS/HR Vital Signs/I&O 10/24/19 10/24/19 01:03 03:47 Temp 35.8 35.8 Pulse 76 74 Resp 18 17 B/P (MAP) 118/71 (87) 118/62 (87) Pulse Ox 98 98 O2 Delivery Room Air Room Air Capillary Refill : Less Than 3 Seconds Blood Pressure Mean: 87 Point of Care Testing Finger Stick Blood Glucose: 296 Blood Glucose Action Taken: Dr Dickson notified Progress Note : Progress Note 2 L of IV fluids were infused. Blood sugar was checked periodically and was trending down nicely. Urine showed small evidence of persistent urinary tract infection. Rocephin was administered and Keflex prescribed. Advised patient follow up promptly with her primary care provider later today to review diabetes management. blood sugar was 466 and final blood sugar was 296. Departure Impression Primary Impression: Hyperglycemia Additional Impressions: Urinary tract infection Qualified Codes: N39.0 - Urinary tract infection, site not specified Chronic kidney disease Qualified Codes: N18.9 - Chronic kidney disease, unspecified Disposition: HOME, SELF-CARE Condition: Improved Departure-Patient Inst. Decision time for Depature: 03:36 Referrals: PRISCA WINTER MD (PCP/Family) Primary Care Physician Patient Instructions: Diabetes Type 2 (DC), Urinary Tract Infections in Adults Add. Discharge Instructions: Drink plenty of water. Eat a very low sugar, low carbohydrate diet. Call the clinic later today to receive further instructions on your diabetic medications. Complete your antibiotics as prescribed. Return to care if you have worsening symptoms. Follow-up with your primary care provider as soon as possible All discharge instructions reviewed with patient and/or family. Voiced understanding. Scripts Cephalexin (Keflex) 500 Mg Capsule 500 MG PO BID, #14 CAP Prov: GABRIELLA DICKSON MD 10/24/19 Copy Copies To 1: PRISCA WINTER MD, JOSHUA T MD Oct 24, 2019 03:39
[2019-10-24 03:47] VITALS: BP 118/62
== END 2019-10-24 03:52 | disposition home or self-care (01) ==
LOC: EDUNIT# 23:38 → ER 23:43
DX: E11.65 Type 2 diabetes mellitus with hyperglycemia (principal); E11.22 Type 2 diabetes mellitus with diabetic chronic kidney disease; I12.9 Hypertensive chronic kidney disease with stage 1 through stage 4 chronic kidney disease, or unspecified chronic kidney disease; N18.9 Chronic kidney disease, unspecified; N39.0 Urinary tract infection, site not specified; E78.00 Pure hypercholesterolemia, unspecified; F41.9 Anxiety disorder, unspecified; F32.9 Major depressive disorder, single episode, unspecified; J45.909 Unspecified asthma, uncomplicated; Z85.828 Personal history of other malignant neoplasm of skin; Z79.84 Long term (current) use of oral hypoglycemic drugs; Z96.651 Presence of right artificial knee joint
CPT/HCPCS: 36415; 80048; 81000; 82962; 83735; 85025; 87077; 87088; 87186

== ENCOUNTER → 2019-10-24 | Outpatient (CLI) | payer MEDICARE, OTHER ==
[~2019-10-24] MED LIST changes: +CEPH-507 PO
[2019-10-24 18:30] LABS: CALCIUM 8.9 MG/DL (8.5-10.1); CREATININE SERUM 1.71 MG/DL (0.60-1.30)
== END ==
LOC: LAB 17:50
PROVIDERS: ATTEND Family Medicine
DX: E11.65 Type 2 diabetes mellitus with hyperglycemia (principal)
CPT/HCPCS: 36415; 80048

== ENCOUNTER → 2020-06-04 | Outpatient (CLI) | payer MEDICARE, OTHER ==
--- NOTE | 2020-06-04 13:27 | Diagnostic Imaging Report ---
INDICATION: Postmenopausal state. COMPARISON: None available. FINDINGS: AP Spine L1-L4: [BMD (g/cm2): 0.974] [T-Score: -1.9] [Z-Score: -1.3] [BMD Previous: na] [BMD % Change: na] LT Hip Neck: [BMD (g/cm2): 0.727] [T-Score: -2.2] [Z-Score: -1.2] LT Hip Total: [BMD (g/cm2):0.713] [T-Score:-2.3] [Z-Score: -1.6] [BMD Previous: na] [BMD % Change: na] RT Hip Neck: [BMD (g/cm2):0.755] [T-Score:-2.0] [Z-Score:-1.0] RT Hip Total: [BMD (g/cm2):0.761] [T-score:-2.0] [Z-Score:-1.2] [BMD Previous:na] [BMD % Change:na] *Indicates significant change from prior examination based on 95% confidence level. World Health Organization criteria for BMD interpretation classify patients as Normal (T-score at or above -1.0), Osteopenic (T-score between -1.0 and -2.5) or Osteoporotic (T-score at or below -2.5). LIMITATIONS AND MODIFICATION: None. FRACTURE RISK (FRAX SCORE): The ten year probability of (%): Major Osteoporotic Fracture: [20.1] Hip Fracture: [4.6] IMPRESSION: 1. Osteopenia (Low bone mass). 2. Baseline examination. 3. See below National Osteoporosis Foundation guidelines on when to potentially initiate pharmacologic therapy. Based on the National Osteoporosis Foundation Guidelines, pharmacologic treatment should be initiated in any of the following, unless clinical conditions suggest otherwise: * Any patient with prior fragility fracture of the hip or vertebrae. A spine fracture indicates 5X risk for subsequent spine fracture and 2X risk for subsequent hip fracture. * Osteoporosis (T-score <-2.5). * Postmenopausal women and men age 50 and older with low bone mass/osteopenia (T-score between -1.0 and -2.5) by DXA and 10-year major osteoporotic fracture greater than 20% or a 10-year probability of hip fracture greater than 3%. These fracture risks are supplied above in the FRAX score, if applicable. * Clinician judgement and/or patient preferences may indicate treatment for people with 10-year fracture probabilities above or below these levels. Dictated by: Dictated on workstation # [id number]
== END ==
LOC: RAD 10:30
PROVIDERS: ATTEND Family Medicine
DX: M85.89 Other specified disorders of bone density and structure, multiple sites (principal); Z78.0 Asymptomatic menopausal state
CPT/HCPCS: 77080

== ENCOUNTER → 2020-08-20 | Outpatient (CLI) | payer MEDICARE, OTHER ==
--- NOTE | 2020-08-20 15:25 | Diagnostic Imaging Report ---
INDICATION: Recent traumatic head injury. Headache. TECHNIQUE: Routine non contrast-enhanced axial images were obtained from the skull base to the vertex. Auto Exposure Controls were utilized during the CT exam to meet ALARA standards for radiation dose reduction COMPARISON: None. FINDINGS: The ventricles and cortical sulci are diffusely prominent, compatible with age-related volume loss. There are confluent areas of abnormal, low attenuation in the periventricular white matter. This is consistent with small vessel ischemic changes; age-indeterminate. There is no prior study available for comparison. There is no midline shift or mass-effect. No acute intra-axial hemorrhage is seen. There are no abnormal areas of increased or decreased density to suggest acute hemorrhage or edema. No extra-axial masses or collections are present. The bony calvarium is intact. The visualized paranasal sinuses are unremarkable. The mastoid air cells are clear. IMPRESSION: 1. No acute intracranial abnormality. No CT evidence of mass, acute infarct or intracranial hemorrhage. 2. Small vessel ischemic changes in the periventricular and subcortical white matter; likely chronic. Dictated by: Dictated on workstation # [id number]
== END ==
LOC: RAD 14:59
PROVIDERS: ATTEND Pediatrics
DX: S06.9X0A Unspecified intracranial injury without loss of consciousness, initial encounter (principal); X58.XXXA Exposure to other specified factors, initial encounter
CPT/HCPCS: 70450

== ENCOUNTER 2020-08-26 17:54 | Emergency (ER) | payer MEDICARE, OTHER ==
[~2020-08-26] VITALS: Ht 172.7 cm; Wt 98.1 kg
[2020-08-26 18:42] LABS: BASOPHILS % (AUTO) 1 % (0-10); EOSINOPHILS # (AUTO) 0.4 10^3/uL (0.0-0.3); EOSINOPHILS % (AUTO) 5 % (0-10); HEMATOCRIT 41 % (35-52); LYMPHOCYTES # (AUTO) 1.9 10^3/uL (1.0-4.0); LYMPHOCYTES % (AUTO) 23 % (12-44); MEAN CORPUSCULAR HEMOGLOBIN 30 pg (25-34); MEAN CORPUSCULAR HGB CONC 32 g/dL (32-36); MEAN CORPUSCULAR VOLUME 94 fL (80-99); MEAN PLATELET VOLUME 9.6 fL (9.0-12.2); MONOCYTES # (AUTO) 0.7 10^3/uL (0.0-1.0); MONOCYTES % (AUTO) 8 % (0-12); NEUTROPHILS # (AUTO) 5.2 10^3/uL (1.8-7.8); NEUTROPHILS % (AUTO) 63 % (42-75); PLATELET COUNT 295 10^3/uL (130-400); WHITE BLOOD COUNT 8.2 10^3/uL (4.3-11.0)
[2020-08-26 18:52] LABS: INR 1.2 (0.8-1.4); PROTHROMBIN TIME PATIENT 15.1 SEC (12.2-14.7)
[2020-08-26 18:53] LABS: POTASSIUM 4.3 MMOL/L (3.6-5.0)
[2020-08-26 18:54] LABS: CALCIUM 8.9 MG/DL (8.5-10.1)
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
[2020-08-26 18:58] LABS: CREATININE SERUM 1.65 MG/DL (0.60-1.30)
--- NOTE | 2020-08-26 19:20 | Diagnostic Imaging Report ---
CLINICAL HISTORY: Fall. Right hand swelling. COMPARISON: None. TECHNIQUE: 3 views of the right hand. FINDINGS: There is no acute fracture or dislocation of the right hand. Alignment is anatomic. Generalized osteopenia is noted. Degenerative changes are seen throughout the right hand with joint space narrowing and marginal osteophyte formation. These are greatest in the PIP and DIP joints. IMPRESSION: 1. No acute fracture or dislocation in the right hand. 2. Osteoarthritis throughout the hands. 3. Generalized osteopenia. Dictated by: Dictated on workstation # [id number]
--- NOTE | 2020-08-26 19:25 | Diagnostic Imaging Report ---
PROCEDURE: CT head, face, and cervical spine without contrast. TECHNIQUE: Multiple contiguous axial images were obtained through the head, neck, and facial bones without the use of intravenous contrast. Sagittal and coronal reformations through the cervical spine and facial bones were also performed. Auto Exposure Controls were utilized during the CT exam to meet ALARA standards for radiation dose reduction. INDICATION: Fall. Scalp contusion. Head and neck pain. COMPARISON: CT head on 08/20/2020. FINDINGS: CT head: No large acute territorial ischemia, mass, or hemorrhage. No midline shift or mass effect. Senescent mineralization is visualized in the bilateral basal ganglia. Decreased attenuation is seen in the periventricular and subcortical white matter. The ventricles and cortical sulci are prominent. The basilar cisterns are patent and unremarkable. The calvarium is intact. Small amount of soft tissue edema is seen overlying the right forehead and lateral aspect of the right orbit. CT face: No acute facial fractures are visualized. The mandible, zygomatic arches, and pterygoid plates are intact. The bilateral TMJ demonstrate mild degenerative changes bilaterally. No nasal bone fractures. The bony nasal septum is slightly deviated to the right without fracture. Mild mucosal thickening is seen in the bilateral frontal and ethmoid sinuses. The mastoid air cells are well pneumatized. The globes and orbits are symmetric and unremarkable. No evidence of orbital rim fracture. CT cervical spine: No acute fracture or dislocation is seen in the cervical spine. No focal osseous lesions. Generalized osteopenia is noted. Vertebral body heights are well-maintained. The craniocervical junction is well-maintained. Soft tissues of the neck are unremarkable. The included lung apices are clear. IMPRESSION: 1. No hemorrhage or focal intra-axial mass. No CT evidence of large acute territorial ischemia. 2. No acute fracture or dislocation in the cervical spine. 3. No acute facial fractures. 4. Small amount of soft tissue edema overlying the right forehead and right orbit without evidence of associated fracture. 5. Generalized parenchymal volume loss with scattered chronic microvascular disease. Dictated by: Dictated on workstation # [id number]
[2020-08-26] MEDS ORDERED: ONDA4TAB11 PO (19:47)
[2020-08-26 20:00] VITALS: BP 122/70
[2020-08-26] MEDS ORDERED: ONDANSETRON 4 MG (ZOFRAN) ORAL DISSOLVE TAB PO ONE (20:00)
== END 2020-08-26 20:01 | disposition home or self-care (01) ==
LOC: EDUNIT# 17:54 → ER 17:56
DX: S06.0X0A Concussion without loss of consciousness, initial encounter (principal); S16.1XXA Strain of muscle, fascia and tendon at neck level, initial encounter; S00.83XA Contusion of other part of head, initial encounter; S60.221A Contusion of right hand, initial encounter; R29.6 Repeated falls; I48.91 Unspecified atrial fibrillation; I10 Essential (primary) hypertension; J45.909 Unspecified asthma, uncomplicated; E78.00 Pure hypercholesterolemia, unspecified; F41.9 Anxiety disorder, unspecified; F32.9 Major depressive disorder, single episode, unspecified; E11.9 Type 2 diabetes mellitus without complications; Z79.01 Long term (current) use of anticoagulants; Z79.84 Long term (current) use of oral hypoglycemic drugs; W10.8XXA Fall (on) (from) other stairs and steps, initial encounter
CPT/HCPCS: 36415; 70450; 70486; 72125; 73130; 80048; 85025; 85610; 85730

== ENCOUNTER → 2020-08-30 | Outpatient (CLI) | payer MEDICARE, OTHER ==
[~2020-08-30] MED LIST changes: +ONDA4TAB11 PO
--- NOTE | 2020-08-30 10:49 | Diagnostic Imaging Report ---
PROCEDURE: MR imaging of the brain without contrast. TECHNIQUE: Multiplanar, multisequence MR imaging of the brain was performed without contrast. INDICATION: Falls. Headaches. Blurred vision. Loss of balance. COMPARISON: CT head without contrast 08/26/2020. FINDINGS: Moderate generalized cerebral and cerebellar parenchymal volume loss is age appropriate. Mild nonspecific T2 hyperintensities in the supratentorial white matter compatible with chronic small vessel ischemic change. No restricted water diffusion. No hemosiderin deposition or evidence of intracranial hemorrhage. Normal morphology including the major midline structures, sella, posterior fossa and cerebellar pontine angle. Normal intracranial flow voids. No hydrocephalus or extra-axial fluid collections. The orbits are unremarkable on this nondedicated exam. The paranasal sinuses and mastoids are clear. Normal bone marrow signal. IMPRESSION: Age-appropriate MRI of the brain. No acute findings. Dictated by: Dictated on workstation # [id number]
== END ==
LOC: RAD 09:08
PROVIDERS: ATTEND Family Medicine
DX: H53.8 Other visual disturbances (principal); R26.89 Other abnormalities of gait and mobility; R51.9 Headache, unspecified; W19.XXXA Unspecified fall, initial encounter
CPT/HCPCS: 70551

== ENCOUNTER → 2020-09-17 | Outpatient (CLI) | payer MEDICARE, OTHER | LOC: CARD 08:30 | PROVIDERS: ATTEND Internal Medicine Cardiovascular Disease | DX: I10 Essential (primary) hypertension (principal); I25.10 Atherosclerotic heart disease of native coronary artery without angina pectoris | CPT/HCPCS: 93306 ==

== ENCOUNTER → 2020-09-20 | Outpatient (CLI) | payer MEDICARE, OTHER ==
--- NOTE | 2020-09-20 17:26 | Diagnostic Imaging Report ---
INDICATION: Routine screening. Comparison is made with prior mammogram from 09/15/2019 and 07/20/2017. 2-D and 3-D bilateral screening mammography was performed with CAD. Scattered fibroglandular densities are identified bilaterally. Metallic device in the superior left breast is again noted. Nodular density in the outer left breast is stable. No new mass or malignant appearing microcalcifications are seen. Axillae are unremarkable. IMPRESSION: BI-RADS Category 2 No mammographic features suspicious for malignancy are identified. ACR BI-RADS Category 2: Benign findings. Result letter will be mailed to the patient. Note: At least 10% of breast cancer is not imaged by mammography. Dictated by: Dictated on workstation # [id number]
== END ==
LOC: RAD 10:45
PROVIDERS: ATTEND Family Medicine
DX: Z12.31 Encounter for screening mammogram for malignant neoplasm of breast (principal)
CPT/HCPCS: 77063; 77067

== ENCOUNTER → 2020-11-18 | Outpatient (CLI) | payer MEDICARE, OTHER ==
[~2020-11-18] VITALS: Ht 172 cm; Wt 98.0 kg
[~2020-11-18] MED LIST changes: +REGADENOSON 0.4 MG/5 ML SYR (LEXISCAN) IV ONE
[2020-11-18] MEDS: CATHETER FLUSH 10 ML SYR IV PRN ×2 (07:23→08:39)
[2020-11-18 08:38] VITALS: BP 142/82
--- NOTE | 2020-11-18 11:02 | Cardiology Stress Test Report ---
Stress Test Report Date of Procedure/Referring: Date of Procedure: Nov 18, 2020 PCP Roxana Boogie MD Admitting Physician Maryan Palmer MD Indications: HTN Baseline Heart Rate: 77 Baseline Blood Pressure: Blood Pressure Systolic: 142 Blood Pressure Diastolic: 82 Baseline Vitals Vital Signs Date Time Temp Pulse Resp B/P (MAP) Pulse Ox O2 Delivery O2 Flow Rate FiO2 11/18/20 08:38 77 14 142/82 (102) 97 Room Air Baseline EKG: Baseline EKG: NSR Summary After explaining the procedure to the patient, she signed a consent and then brought to the stress nuclear laboratory. Patient received 0.4 mg Lexiscan for stress test, ECG, heart rate and blood pressure were monitored continuously. Resting and stress dose of radio tracer were injected, imaging was acquired and reviewed in short axis, horizontal long axis and vertical long axis views. TID: 1 SSS: 4 SDS: 4 EF: 70 1. Patient tolerated Lexiscan well 2. Breast attenuation with typical female pattern, mild decrease uptake at the mid to apical anterolateral wall with subtle reversibility, no significant ischemia or infarction was noted 3. Normal left ventricular size, EF 70% ROXANA BOOGIE MD Nov 18, 2020 11:02
== END ==
LOC: CARD 07:30
PROVIDERS: ATTEND Internal Medicine Cardiovascular Disease
DX: I10 Essential (primary) hypertension (principal); I25.10 Atherosclerotic heart disease of native coronary artery without angina pectoris
CPT/HCPCS: 78452; 93017; A9502

== ENCOUNTER 2020-12-06 10:15 | Outpatient (RCR) | payer MEDICARE, OTHER ==
[~2020-12-06 10:15] MED LIST changes: -REGADENOSON 0.4 MG/5 ML SYR (LEXISCAN) IV ONE
== END 2020-12-08 | disposition home or self-care (01) ==
PROVIDERS: ATTEND Family Medicine
DX: R26.89 Other abnormalities of gait and mobility (principal); R53.1 Weakness; R29.6 Repeated falls

== ENCOUNTER 2021-12-05 13:48 | Outpatient (RCR) | payer MEDICARE, OTHER ==
[~2021-12-05 13:48] MED LIST changes: -DULO60CA6 PO; +DULO60CA7 PO; -TRIA1CAP4 PO; +TRIA1CAP84 PO
== END 2021-12-07 | disposition home or self-care (01) ==
PROVIDERS: ATTEND Family Medicine
DX: M21.372 Foot drop, left foot (principal)

== ENCOUNTER → 2022-01-07 | Outpatient (RCR) | payer MEDICARE, OTHER ==
[~2022-01-07] MED LIST changes: +SIMV-332 PO; -SIMV10TA PO
== END | disposition home or self-care (01) ==
PROVIDERS: ATTEND Family Medicine
DX: M21.372 Foot drop, left foot (principal)

== ENCOUNTER 2022-01-16 15:02 | Outpatient (RCR) | payer MEDICARE, OTHER ==
[2022-02-05] MEDS ORDERED: FLUT9.9S NS (11:09)
[2022-02-05] MEDS ORDERED: LORA10TA76 PO (11:09)
[2022-02-05] MEDS ORDERED: LISI10TA25 PO (11:09)
[2022-02-05] MEDS ORDERED: RIVA20TA PO (11:09)
[2022-02-05] MEDS ORDERED: INSU100I10 SQ (11:09)
[2022-02-05] MEDS ORDERED: ATOR20TA66 PO (11:09)
[2022-02-05] MEDS ORDERED: SEMA0.25 SQ (11:09)
[2022-02-05] MEDS ORDERED: METO50TA7 PO (11:09)
[2022-02-05] MEDS ORDERED: ALB0.5V INH (11:09)
[2022-02-05] MEDS ORDERED: FLEC50TA PO (11:09)
== END 2022-02-06 | disposition home or self-care (01) ==
PROVIDERS: ATTEND Family Medicine
DX: M21.372 Foot drop, left foot (principal)

== ENCOUNTER 2022-02-04 05:41 | Outpatient (CLI) | payer MEDICARE, OTHER ==
[~2022-02-04] VITALS: Ht 172.7 cm; Wt 93.0 kg
[2022-02-05] MEDS ORDERED: INSU100I10 SQ (11:09)
[2022-02-05] MEDS ORDERED: METO50TA7 PO (11:09)
[2022-02-05] MEDS ORDERED: SEMA0.25 SQ (11:09)
[2022-02-05] MEDS ORDERED: FLUT9.9S NS (11:09)
[2022-02-05] MEDS ORDERED: LORA10TA76 PO (11:09)
[2022-02-05] MEDS ORDERED: LISI10TA25 PO (11:09)
[2022-02-05] MEDS ORDERED: FLEC50TA PO (11:09)
[2022-02-05] MEDS ORDERED: RIVA20TA PO (11:09)
[2022-02-05] MEDS ORDERED: ALB0.5V INH (11:09)
[2022-02-05] MEDS ORDERED: ATOR20TA66 PO (11:09)
== END 2022-02-05 11:24 | disposition home or self-care (01) ==
LOC: PREOP 05:41
PROVIDERS: ATTEND Surgery
DX: Z01.818 Encounter for other preprocedural examination (principal); Z12.11 Encounter for screening for malignant neoplasm of colon; K21.9 Gastro-esophageal reflux disease without esophagitis; Z86.010 Personal history of colon polyps; Z80.0 Family history of malignant neoplasm of digestive organs

== ENCOUNTER 2022-02-17 10:32 | Day surgery (SDC) | payer MEDICARE, OTHER ==
[~2022-02-17] VITALS: Ht 172.7 cm; Wt 93.0 kg
[~2022-02-17 10:32] MED LIST changes: +ALB0.5V INH; +ATOR20TA66 PO; +FLEC50TA PO; +FLUT9.9S NS; +INSU100I10 SQ; +LISI10TA25 PO; +LORA10TA76 PO; +METO50TA7 PO; +RIVA20TA PO; +SEMA0.25 SQ
[2022-02-17] MEDS ORDERED: LACTATED RINGERS 1,000 ML IV ONE (10:40)
[2022-02-17] MEDS ORDERED: LACTATED RINGERS 1,000 ML IV STA (10:44)
[2022-02-17] MEDS ORDERED: HURRICAINE EXT TUBE (BENZOCAINE) XX PRN (10:45)
[2022-02-17 11:05] VITALS: BP 125/59
[2022-02-17] MEDS ORDERED: PROPOFOL INJECTION 50 ML IV ONE (14:21)
--- NOTE | 2022-02-17 15:20 | Progress Note-Post Operative ---
Post-Operative Progess Note Surgeon (s)/Automotive Refinish Technician (s) Surgeon NEERU CABAN DO Automotive Refinish Technician: Juan Ochoa Student Pre-Operative Diagnosis hx polyps, gerd, family hx colon cancer Post-Operative Diagnosis normal egd, retal polyp Procedure & Operative Findings Date of Procedure 02/17/22 Procedure Performed/Findings EGD w/ biopsies Colonoscopy with hot biopsy polypectomy x1 Anesthesia Type per sliver handler Estimated Blood Loss Estimated blood loss (mL): minimal Specimens/Packing Specimens Removed antrum bx x1 GE jxn x1 Rectal polyp x1 NEERU CABAN DO Feb 17, 2022 15:20
--- NOTE | 2022-02-17 15:20 | Anesthesia-General Post-Op ---
MAC Patient Condition Mental Status/LOC: Same as Preop Cardiovascular: Satisfactory Nausea/Vomiting: Absent Respiratory: Satisfactory Pain: Controlled Complications: Absent Post Op Complications Complications None Follow Up Care/Instructions Patient Instructions None needed. Anesthesiology Discharge Order Discharge Order Patient is doing well, no complaints, stable vital signs, no apparent adverse anesthesia problems. No complications reported per nursing. SIMRAN CHANDRA CRNA Feb 17, 2022 15:20
[2022-02-17 15:23] VITALS: BP 115/60
[2022-02-17 15:25] VITALS: BP 140/65
[2022-02-17 15:55] VITALS: BP 136/63
[2022-02-17 16:30] VITALS: BP 136/63
--- NOTE | 2022-02-17 21:59 | OPERATIVE REPORT ---
DATE OF SERVICE: 02/17/2022 PREOPERATIVE DIAGNOSES: Family history of colon cancer, history of polyps, gastroesophageal reflux disease. POSTOPERATIVE DIAGNOSES: Normal esophagogastroduodenoscopy, colonoscopy with rectal polyp. PROCEDURES: EGD with biopsies, colonoscopy with hot biopsy polypectomy x1. SURGEON: Neeru Beasley DO ANESTHESIA: Per HOUSEHOLD PERSONAL ASSISTANT. ESTIMATED BLOOD LOSS: None. COMPLICATIONS: None. INDICATIONS: The patient is a 71-year-old female needing EGD and colonoscopy. She understands risks and benefits of procedure and wishes to proceed. Consent was signed in the chart. DESCRIPTION OF PROCEDURE: The patient was taken to the endoscopy suite, placed in left lateral recumbent position. Timeout was performed. Scope was inserted in mouth, down the esophagus, stomach and into the duodenum without difficulty. There were no polyps, masses or ulcerations within the duodenum. Scope was slowly retracted back into the stomach where it was further insufflated. Slight erythematous changes present in the antrum. Biopsy was obtained. No polyps, masses or ulcerations. Scope was retroflexed noting no other pathology. Scope was returned to its normal position, slowly withdrawn to distal esophagus. Biopsy of GE junction was obtained. Scope was then slowly retracted back until completely removed noting no other pathology, but prior to removing, biopsy of the GE junction was obtained. Digital rectal exam was performed. No palpable polyps, masses or ulcerations. Scope was inserted in the rectum and advanced all the way to cecum with minimal difficulty. Prep was adequate. Scope was then slowly retracted back. No polyps, masses or ulcerations in the cecum, ascending, transverse, descending and sigmoid colon. Once in the rectum, small polyp was present, which hot biopsy polypectomy was performed. Scope was retroflexed noting no other pathology. Scope was returned to its normal position, slowly withdrawn until completely removed. The patient tolerated procedure well without any complications, taken to recovery room in stable condition. RECOMMENDATIONS: The patient will need repeat colonoscopy in five years if family history of colon cancer, but due to her age, not necessarily needing to proceed unless the patient wishes to by guidelines. The patient will follow up in 2 weeks to discuss pathology results. Job ID: [id number] DocumentID: [id number] Dictated Date: 02/17/2022 15:26:40 Sales Support Technician Date: 02/17/2022 21:58:11 Dictated By: NEERU BEASLEY DO
== END 2022-02-17 14:30 | disposition home or self-care (01) ==
LOC: ENDO 10:32
PROVIDERS: ATTEND Surgery
DX: Z12.11 Encounter for screening for malignant neoplasm of colon (principal); D37.5 Neoplasm of uncertain behavior of rectum; K21.9 Gastro-esophageal reflux disease without esophagitis; Z80.0 Family history of malignant neoplasm of digestive organs; E11.9 Type 2 diabetes mellitus without complications; I48.91 Unspecified atrial fibrillation; E66.9 Obesity, unspecified; Z68.31 Body mass index [BMI] 31.0-31.9, adult; Z79.4 Long term (current) use of insulin; Z79.85 Long-term (current) use of injectable non-insulin antidiabetic drugs; Z86.010 Personal history of colon polyps; Z79.01 Long term (current) use of anticoagulants; Z28.310 Unvaccinated for COVID-19

== ENCOUNTER → 2022-04-08 | Outpatient (RCR) | payer MEDICARE, OTHER | END | disposition home or self-care (01) | PROVIDERS: ATTEND Family Medicine Sports Medicine | DX: S82.54XD Nondisplaced fracture of medial malleolus of right tibia, subsequent encounter for closed fracture with routine healing (principal); S93.491D Sprain of other ligament of right ankle, subsequent encounter; X58.XXXD Exposure to other specified factors, subsequent encounter ==

== ENCOUNTER 2022-05-08 13:46 | Outpatient (RCR) | payer MEDICARE, OTHER | END 2022-05-09 | disposition home or self-care (01) | PROVIDERS: ATTEND Family Medicine Sports Medicine | DX: S82.54XD Nondisplaced fracture of medial malleolus of right tibia, subsequent encounter for closed fracture with routine healing (principal); S93.491D Sprain of other ligament of right ankle, subsequent encounter; X58.XXXD Exposure to other specified factors, subsequent encounter ==

== ENCOUNTER 2022-06-08 14:53 | Outpatient (RCR) | payer MEDICARE, OTHER | END 2022-06-09 | disposition home or self-care (01) | PROVIDERS: ATTEND Family Medicine Sports Medicine | DX: S82.54XD Nondisplaced fracture of medial malleolus of right tibia, subsequent encounter for closed fracture with routine healing (principal); S93.491D Sprain of other ligament of right ankle, subsequent encounter; X58.XXXD Exposure to other specified factors, subsequent encounter ==

== ENCOUNTER 2022-07-02 14:14 | Outpatient (RCR) | payer MEDICARE, OTHER | END 2022-07-02 14:53 | disposition home or self-care (01) | PROVIDERS: ATTEND Family Medicine Sports Medicine | DX: S82.54XD Nondisplaced fracture of medial malleolus of right tibia, subsequent encounter for closed fracture with routine healing (principal); S93.491D Sprain of other ligament of right ankle, subsequent encounter; J45.909 Unspecified asthma, uncomplicated; E11.9 Type 2 diabetes mellitus without complications; W19.XXXD Unspecified fall, subsequent encounter ==

== ENCOUNTER 2022-07-12 14:10 | Emergency (ER) | payer MEDICARE, OTHER ==
--- NOTE | 2022-07-12 14:35 | ED Cough/URI ---
General Chief Complaint: Respiratory Problems Stated Complaint: SOB, WHEEZING Nursing Triage Note: PT AMB TO [facility] 6 [facility] CC OF COUGH, WHEEZING AND SOA X 1 WEEK. PT STATES DOES HAVE ASTHMA AND USUALLY NOTICES THESE SYMPTOMS AROUND THIS TIME OF YEAR. PT CONCERNED D/T SYMPTOMS LASTING LONGER THEN USUAL. PT DENIES CHEST PAIN AND FEVER. Source: patient, family () Exam Limitations: no limitations History of Present Illness Date Seen by Provider: Jul 12, 2022 Time Seen by Provider: 14:20 Initial Comments 71-year-old female with reported asthma presents to the emergency department for cough. Symptoms present for about a week and worsening. She states she had a coughing fit this afternoon and could not stop which caused her to be short of breath. She denies any fevers or chills. She has had a mild headache. No c hest pain. She has a nebulizer at home but found that the liquid had so did not use it. Allergies and Home Medications Allergies Coded Allergies: No Known Drug Allergies (Unverified , 12/14/16) Patient Home Medication List Home Medication List Reviewed: Yes Albuterol Sulfate (Albuterol Sulfate) 2.5 Mg/0.5 Ml Vial.neb, 2.5 MG INH Q6H PRN for WHEEZING, (Reported) Entered as Reported by: MICHELLE MCGHEE on 02/05/22 1109 Atorvastatin Calcium (Atorvastatin Calcium) 20 Mg Tablet, 20 MG PO DAILY, (Reported) Entered as Reported by: MICHELLE MCGHEE on 02/05/22 1109 Budesonide/Formoterol Fumarate (Symbicort 160-4.5 Mcg Inhaler) 10.2 Gm Hfa.aer.ad, 2 PUFF IH BID, (Reported) Entered as Reported by: MERARY PRIEST on 12/14/16 1015 Cholecalciferol (Vitamin D3) (Vitamin D) 1,000 Unit Tablet, 1,000 UNIT PO DAILY, (Reported) Entered as Reported by: MERARY PRIEST on 12/14/16 1015 Duloxetine HCl (Cymbalta) 60 Mg Capsule.dr, 60 MG PO DAILY, (Reported) Entered as Reported by: MERARY PRIEST on 12/14/16 1015 Flecainide Acetate (Flecainide Acetate) 50 Mg Tablet, 50 MG PO BID, (Reported) Entered as Reported by: MICHELLE MCGHEE on 02/05/221108 Fluticasone Propionate (Flonase Allergy Relief) 50 Mcg/Actuation [place].susp, 1 SPRAY NS DAILY, (Reported) Entered as Reported by: MICHELLE MCGHEE on 02/05/221108 Insulin Glargine,Hum.rec.anlog (Lantus Solostar) 100 Unit/Ml (3 Ml) Insuln.pen, 14 UNIT SQ HS, (Reported) Entered as Reported by: MICHELLE MCGHEE on 02/05/221108 Lisinopril (Lisinopril) 10 Mg Tablet, 10 MG PO DAILY, (Reported) Entered as Reported by: MICHELLE MCGHEE on 02/05/221108 Loratadine (Claritin) 10 Mg Tablet, 10 MG PO DAILY, (Reported) Entered as Reported by: MICHELLE MCGHEE on 02/05/221108 Metoprolol Succinate (Metoprolol Succinate) 50 Mg Tab.er.24h, 50 MG PO DAILY, (Reported) Entered as Reported by: MICHELLE MCGHEE on 02/05/221108 Rivaroxaban (Xarelto) 20 Mg Tablet, 20 MG PO DAILY, (Reported) Entered as Reported by: MICHELLE MCGHEE on 02/05/221108 Semaglutide (Ozempic) 0.25 Mg/0.2 Ml Pen.injctr, 0.25 MG SQ WEEK, (Reported) Entered as Reported by: MICHELLE MCGHEE on 02/05/221108 Sertraline HCl (Zoloft) 50 Mg Tablet, 50 MG PO DAILY, (Reported) Entered as Reported by: MERARY PRIEST on 12/14/16 1015 Review of Systems Review of Systems Constitutional: no symptoms reported Past Zinmssz-Ufzqgx-Hzzocr Hx Patient Social History Tobacco Use?: No Use of E-Cig and/or Vaping dev: No Substance use?: No Alcohol Use?: No Pt feels they are or have been: No Immunizations Up To Date Influenza Vaccine Up-to-Date: Yes; Up-to-Date First/Initial COVID19 Vaccinat: YES Second COVID19 Vaccination [place]: YES Third COVID19 Vaccination Date: YES Seasonal Allergies Seasonal Allergies: No Past Medical History Surgery/Hospitalization HX: ASTHMA, AFIB Surgeries: Yes (NERVE REPLACEMENT LEG, ELBOW FX REPAIR, R TKR;LOOP RECORDER 04/2017) Hysterectomy, Joint Replacement, Orthopedic, Tonsillectomy Respiratory: Yes Asthma Cardiac: Yes ("BLOOD CLOT IN ANKLE"; LOOP RECORDER 04/2017) Atrial Fibrillation, Deep Vein Thrombosis, High Cholesterol, Hypertension Neurological: Yes (LEFT FOOT DROP; POOR BALANCE) Reproductive Disorders: No 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: Hysterectomy, Menopausal Sexually Transmitted Disease: No HIV/AIDS: No Genitourinary: Yes Renal Failure, UTI-Chronic Gastrointestinal: Yes Chronic Constipation Musculoskeletal: Yes Arthritis, Foot Drop, Chronic Back Pain Endocrine: Yes Diabetes, Non-Insulin dep HEENT: Yes (GLASSES) Loss of Vision: Bilateral Hearing Impairment: Denies Cancer: Yes Skin Did You Recieve Any Treatments: Yes What Type of Treatment Did You: Surgical Intervention Psychosocial: Yes Anxiety, Depression Integumentary: No Blood Disorders: No Adverse Reaction/Blood Tranf: No (N/A) Family Medical History Reviewed Nursing Family Hx Colon cancer No Pertinent Family Hx Physical Exam Vital Signs - First Documented 07/12/22 14:16 Temp 37.0 Pulse 79 Resp 18 B/P (MAP) 136/70 (92) Pulse Ox 94 O2 Delivery Room Air Capillary Refill : Less Than 3 Seconds Height: 5'8.00" Weight: 214lbs. 0.0oz. 97.806014xo; 31.18 BMI Method: General Appearance: WD/WN, no apparent distress HEENT: normal ENT inspection, pharynx normal Neck: non-tender, supple Respiratory: chest non-tender, no respiratory distress, no accessory muscle use, rhonchi (Coarse rhonchi bilateral lung enrique with scant wheezing), wheezing Cardiovascular: regular rate, rhythm, no murmur Gastrointestinal: normal bowel sounds, non tender, soft, no organomegaly Extremities: no pedal edema, normal capillary refill Neurologic/Psychiatric: alert, oriented x 3 Skin: normal color, warm/dry Progress/Results/Core Measures Suspected Sepsis SIRS Temperature: Pulse: 79 Respiratory Rate: 18 Blood Pressure 136 /70 Mean: 92 Results/Orders My Orders Orders - TOSHIA LIZARRAGA DO Albuterol/Ipra Inhalation Soln (Duoneb I (07/12/22 14:45) Prednisone Tablet (Deltasone Tablet) (07/12/22 14:45) Svn Small Volume Nebulizer (07/12/22 14:34) Chest Pa/Lat (2 View) (07/12/22 14:34) Medications Given in ED Current Medications Medications Dose Ordered Sig/Tam Route Start Time Stop Time Status Last Admin Dose Admin Albuterol/ Ipratropium 3 ml ONCE ONCE INH 07/12/22 14:45 07/12/22 14:46 DC 07/12/22 14:51 3 ML Prednisone 50 mg ONCE ONCE PO 07/12/22 14:45 07/12/22 14:46 DC 07/12/22 14:51 50 MG Vital Signs/I&O 07/12/22 14:16 Temp 37.0 Pulse 79 Resp 18 B/P (MAP) 136/70 (92) Pulse Ox 94 O2 Delivery Room Air Capillary Refill : Less Than 3 Seconds Blood Pressure Mean: 92 Departure Communication (Admissions) On my independent review of the two-view chest x-ray there are no acute findings. Oxygen saturations are stable. There is no evidence for pneumonia, pneumothorax. He is having intermittent shortness of breath with coughing episodes. I do not think this is related to ACS, do not believe there is any indication for lab work at this time, EKG. She is afebrile and nontoxic. This likely bronchitis related to a viral illness. She has had symptoms for 6 or 7 days, no indication for antibiotics at this time. We will treat her with steroids for the next couple days which I think should help her some. She is discharged in stable condition with supportive care. Impression Primary Impression: Bronchitis Disposition: 01 HOME, SELF-CARE Condition: Stable Departure-Patient Inst. Referrals: PRISCA WINTER MD (PCP/Family) Primary Care Physician Patient Instructions: Acute Bronchitis Add. Discharge Instructions: Take the steroid medicine as prescribed until it is gone. Use your nebulized treatments at home as needed. Should your symptoms last more than 10 to 14 days, you may require an antibiotic but at this time no antibiotics are indic ated. Return to the emergency department for any severe shortness of breath or if your symptoms change in any way concerning to you. Follow-up with your primary doctor for any nonemergent needs. All discharge instructions reviewed with patient and/or family. Voiced understanding. Scripts Prednisone (Prednisone) 50 Mg Tab 50 MG PO DAILY for 3 Days, #3 TAB Prov: TOSHIA LIZARRAGA DO 07/12/22 TOSHIA LIZARRAGA DO Jul 12, 2022 14:35
[2022-07-12] MEDS ORDERED: RT-ALBUTEROL/IPRATROPIUM 3 ML (DUONEB) VIAL INH ONE (14:45)
[2022-07-12] MEDS ORDERED: predniSONE 20 MG TAB PO ONE (14:45)
--- NOTE | 2022-07-12 14:50 | Diagnostic Imaging Report ---
EXAMINATION: Chest 2 view HISTORY: Cough, SOB COMPARISON: 10/25/2018. FINDINGS: Heart size and pulmonary vasculature are normal. The lungs are clear without consolidation, pleural effusion, or pneumothorax. Degenerative changes of the thoracic spine. Osseous structures are otherwise intact. IMPRESSION: No acute radiographic abnormality in the chest. Dictated by: Dictated on workstation # [id number]
[2022-07-12] MEDS ORDERED: PRD50T PO (15:03)
[2022-07-12 15:10] VITALS: BP 132/87
== END 2022-07-12 15:10 | disposition home or self-care (01) ==
LOC: EDUNIT# 14:10 → ER 14:12
DX: J45.909 Unspecified asthma, uncomplicated (principal)
CPT/HCPCS: 71046; 94640

== ENCOUNTER → 2023-01-20 | Outpatient (CLI) | payer MEDICARE, OTHER ==
[~2023-01-20] VITALS: Ht 172 cm; Wt 87.0 kg
[~2023-01-20] MED LIST changes: +CATHETER FLUSH 10 ML SYR IVP PRN; +PRD50T PO; +REGADENOSON 0.4 MG/5 ML SYR IV ONE
[2023-01-20 09:18] VITALS: BP 188/99
--- NOTE | 2023-01-20 11:52 | Cardiology Stress Test Report ---
Stress Test Report Date of Procedure/Referring: Date of Procedure: Jan 20, 2023 PCP Maryan Palmer MD Admitting Physician Admitting Physician: Attending Physician: Coral Vanegas Baseline Heart Rate: 67 Baseline Blood Pressure: Blood Pressure Systolic: 188 Blood Pressure Diastolic: 99 Baseline Vitals Vital Signs Date Time Temp Pulse Resp B/P (MAP) Pulse Ox O2 Delivery O2 Flow Rate FiO2 01/20/23 09:18 67 188/99 (128) Baseline EKG: Baseline EKG: NSR Summary After explaining the procedure to the patient, she signed a consent and then brought to the stress nuclear laboratory. Patient received 0.4 mg Lexiscan for stress test, ECG, heart rate and blood pressure were monitored continuously. Resting and stress dose of radio tracer were injected, imaging was acquired and reviewed in short axis, horizontal long axis and vertical long axis views. TID: 1.12 SSS: 5 SDS: 5 EF: 64 Patient tolerated Lexiscan well Breast attenuation with motion artifact, reversible ischemia involving the mid to apical anterior lateral wall and inferolateral wall Normal left ventricular size, ejection fraction 64% Copy Copies To 1: [facility]ROXANA ESPOSITO MD Jan 20, 2023 11:52
== END ==
LOC: CARD 07:41
PROVIDERS: ATTEND Physician Assistant
DX: I10 Essential (primary) hypertension (principal); I25.10 Atherosclerotic heart disease of native coronary artery without angina pectoris
CPT/HCPCS: 78452; 93017; A9502